=== PATIENT | male | born 1970 | race African-American/Black ===

== ENCOUNTER 2020-05-08 06:54 | Emergency (ER) | payer OTHER, MEDICARE, SELFPAY ==
--- NOTE | 2020-05-08 | XR_ITS ---
EXAMINATION: XR CHEST CLINICAL INFORMATION: Pain COMPARISON: None at this time TECHNIQUE: 2 views of the chest were obtained. FINDINGS: No significant abnormality is noted involving the heart, lungs, mediastinum, bony thorax or soft tissues. IMPRESSION: No acute disease.
[2020-05-08 07:04] VITALS: BP 144/94; PULSE 84; RESP 17; TEMP 37; O2SAT 96; BMI 29.9
--- NOTE | 2020-05-08 07:44 | ED_ITS ---
HPI - Back Pain/Injury General Chief Complaint: Back Pain/Injury Stated Complaint: BACK PAIN Time Seen by Provider: 05/08/20 07:30 Source: patient Mode of arrival: ambulatory Limitations: no limitations History of Present Illness HPI Narrative: patient with low back pain , no associated neuro symptoms, no trauma, no fevers, he is on methotrexate no GI or symptoms, no AC therapy - takes methotrexate elicited complaint: back pain Onset (ago): day(s) (3) Timing: constant Severity: moderate Similar Symptoms Previously: No Quality: sharp Location: lumbar spine Radiation: none Exacerbating factors: movement and deep breaths Relieving factors: none Associated symptoms: denies other symptoms Related Data Previous Rx's Medication Instructions Recorded cyclobenzaprine 10 mg PO TID PRN #14 tab 05/08/20 lidocaine 1 patch TOPICAL DAILY PRN #10 ea 05/08/20 Allergies Allergy/AdvReac Type Severity Reaction Status Date / Time No Known Allergies Allergy Unverified 04/22/20 16:51 [No Known Allergies*] environmental Allergy Unknown Uncoded 12/23/19 00:00 Pt states no known allergy to Allergy Unknown Uncoded 12/31/19 00:00 Review of Systems Review of Systems: Constitutional : No Weight loss, No Fever, No Chills, Cardiovascular : No Chest Pain, No SOB Respiratory : No Cough, No Dyspnea Gastrointestinal : No Nausea, No Vomiting, No Diarrhea, No abdominal Pain Genitourinary : No Dysuria, No Urinary Frequency, No Hematuria, No Urinary Incontinence, Musculoskeletal : positive back pain Skin : No Skin Lesions, No rash Neuro : No Weakness, No Numbness, No Paresthesias, no loss of bowel or bladder incontinence, no saddle anesthesia [facility] Past Medical History Medical History (Updated 05/08/20 @ 08:29 by Julia Fuller DO) Headache HTN (hypertension) Rheumatoid aortitis Social History Social History (Updated 05/08/20 @ 07:44 by Julia Fuller DO) Smoking Status: Former smoker Use of substances other than those prescribed or required for medical reasons: No Advance Directives: No Advance Directives Information Provided: No Physical Exam Vital Signs and I&O and Narrative: Vital Signs and I&O: Vital Signs Temp 98.6 F 05/08/20 07:04 Pulse 79 05/08/20 08:11 Resp 18 05/08/20 08:11 BP 144/94 H 05/08/20 07:04 Pulse Ox 96 05/08/20 07:04 Intake & Output 05/07/20 05/08/20 05/08/20 18:59 06:59 18:59 Weight 102.965 kg Body Mass Index 29.9 Appearance: Alert. Oriented X3. No acute distress. Eyes: Pupils equal, round and reactive to light. ENT: Pharynx normal. Neck: Normal inspection. Neck supple. CVS: Normal heart rate and rhythm. Pulses normal. Respiratory: No respiratory distress. Breath sounds normal. Abdomen: Soft and nontender. Back: ttp along right lower lumbar but mild, worse with a deep breath low just above iliac crest - seems unusual for PE Skin: Skin warm and dry. Normal skin color. Normal skin turgor. Extremities: No lower extremity edema. No lower extremity edema. Neuro: Oriented X 3. No motor deficit. No sensory deficit. Course Reevaluation(s) Reevaluation #1: PERC negative Reevaluation #2: no acute findings, stable for DC MDM - Back Pain/Injury MDM Narrative Medical decision making narrative: low back pain bilaterally worse with movements or deep breath it is lumbar in nature, no AC therapy, no IVDA, no fevers, no vert point ttp, no urinary symptoms, abdomen is benign will need CXR to r/o any pneumonia, no b/b incontinence, no saddle anesthesia, seems MSK in nature, dispo per results and findings Discharge Plan Discharge Clinical Impression: Strain of lumbar region Patient Disposition: Home, Self-Care Prescriptions: New cyclobenzaprine 10 mg tablet 10 mg PO TID PRN (Reason: muscle spasm) Qty: 14 RF: 0 lidocaine 4 % adhesive patch,medicated 1 patch topical DAILY PRN (Reason: pain) Qty: 10 RF: 0 Referrals: Avelino Penny PA-C [Primary Care Provider] - 2 days (if not better call sunday)
[2020-05-08] MEDS: Cyclobenzaprine HCl 10 MG TABLET PO (08:08)
[2020-05-08 08:11] VITALS: PULSE 79; RESP 18
== END 2020-05-08 09:29 | disposition home or self-care (01) ==
PROVIDERS: Emergency Provider Emergency Medicine; PCP Physician Assistant
DX: S39.012A Strain of muscle, fascia and tendon of lower back, initial encounter (principal); X58.XXXA Exposure to other specified factors, initial encounter; I10 Essential (primary) hypertension; Y93.9 Activity, unspecified; Y92.9 Unspecified place or not applicable; Y99.9 Unspecified external cause status
CPT/HCPCS: 71046; 99283; 99284

== ENCOUNTER 2020-06-11 07:52 | Outpatient (REF) | payer OTHER, MEDICARE, SELFPAY ==
--- NOTE | 2020-06-11 09:20 | XR_ITS ---
EXAMINATION: XR HAND, RIGHT XR HAND, LEFT CLINICAL INFORMATION: Acute rheumatic endocarditis. COMPARISON: None TECHNIQUE: 3 views of each hand. FINDINGS: RIGHT HAND: There is an ossifying fibroma or bone island seen involving the 2nd middle phalanx. No acute fracture or dislocation is evident. Joint spaces are maintained. There is mild spurring about the 3rd distal interphalangeal joint. There appears to be an erosion involving the base of the right 5th metacarpal. There appear to be pit erosions involving the 3rd metacarpal head. There appears be some slight deformity about the head of the 3rd proximal phalanx with smooth margins which may be developmental or posttraumatic in nature. LEFT HAND: There is a cortical sclerotic lesion involving the middle phalanx of the 4th finger with the appearance of an ossifying fibroma. No acute fracture or dislocation is seen. Joint spaces are maintained. No definite erosive changes are identified. There is some mild negative ulnar variance present. 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 Pit erosions involving the head of the right 3rd metacarpal. Question erosion base of the right 5th metacarpal.
--- NOTE | 2020-06-11 09:20 | XR_ITS ---
EXAMINATION: XR HAND, RIGHT XR HAND, LEFT CLINICAL INFORMATION: Acute rheumatic endocarditis. COMPARISON: None TECHNIQUE: 3 views of each hand. FINDINGS: RIGHT HAND: There is an ossifying fibroma or bone island seen involving the 2nd middle phalanx. No acute fracture or dislocation is evident. Joint spaces are maintained. There is mild spurring about the 3rd distal interphalangeal joint. There appears to be an erosion involving the base of the right 5th metacarpal. There appear to be pit erosions involving the 3rd metacarpal head. There appears be some slight deformity about the head of the 3rd proximal phalanx with smooth margins which may be developmental or posttraumatic in nature. LEFT HAND: There is a cortical sclerotic lesion involving the middle phalanx of the 4th finger with the appearance of an ossifying fibroma. No acute fracture or dislocation is seen. Joint spaces are maintained. No definite erosive changes are identified. There is some mild negative ulnar variance present. 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 Pit erosions involving the head of the right 3rd metacarpal. Question erosion base of the right 5th metacarpal.
== END 2020-06-11 07:53 | disposition home or self-care (01) ==
LOC: HO.HOSX 07:52
PROVIDERS: PCP Physician Assistant; Referring Provider Physician Assistant; Visit Provider Orthopaedic Surgery
DX: I01.1 Acute rheumatic endocarditis (principal); M06.9 Rheumatoid arthritis, unspecified; Z79.899 Other long term (current) drug therapy; Z98.84 Bariatric surgery status; Z96.649 Presence of unspecified artificial hip joint
CPT/HCPCS: 73130

== ENCOUNTER → 2020-06-22 15:21 | Outpatient (REF) | payer OTHER, MEDICARE, SELFPAY ==
--- NOTE | 2020-06-22 15:33 | ECG_ITS ---
Test Reason : PREPROC EXAM Blood Pressure : / mmHG Vent. Rate : 098 BPM Atrial Rate : 098 BPM P-R Int : 182 ms QRS Dur : 116 ms QT Int : 352 ms P-R-T Axes : 054 018 023 degrees QTc Int : 449 ms Normal sinus rhythm Intra-ventricular conduction delay Borderline ECG When compared with ECG of 15-NOV-2017 08:27, Heart rate has increased Referred By: Dax Doyle Electronically Signed By:STELLA CARCAMO MD
[2020-06-22 16:07] LABS: MANUAL DIFF FLAG NO
[2020-06-22 16:12] LABS: Basophils Percent Auto 0.4 % (0-2); Eosinophils Absolute Auto 0.1 X10*3/uL (0.0-0.4); Hematocrit 39.8 % (42-52); Hemoglobin 12.9 g/dl (14.0-18.0); Imm Gran Abs Auto 0.04 X10*3/uL (0.00-0.03); Imm Gran Pct Auto 0.4 % (0.0-0.4); Lymphocytes Percent Auto 27.5 % (20-40); Mean Corpuscular HGB Conc 32.4 g/dl (31.0-36.0); Mean Corpuscular Hemoglobin 28.3 pg (27.0-33.0); Mean Corpuscular Volume 87.3 fL (80-98); Monocytes Absolute Auto 0.8 X10*3/uL (0.1-1.2); Monocytes Percent Auto 7.6 % (2-11); Neutrophils Percent Auto 63.1 % (45-73); Platelet Count 395 X10*3/uL (160-400); Red Blood Count 4.56 X10*6/uL (4.60-5.80); Red Cell Distribution Width 12.8 % (11.0-16.0)
[2020-06-22 16:36] LABS: Anion Gap 15 (12-20); Blood Urea Nitrogen 15 mg/dL (9-16); Calcium 8.7 mg/dL (8.4-10.2); Carbon Dioxide 30 mmol/L (22-29); Chloride 100 mmol/L (96-108); Estimated Glomerular Filt Rate > 60; Glucose Random 88 mg/dL (60-115); Potassium 4.3 mmol/l (3.3-5.1); Sodium 141 mmol/L (135-145)
== END ==
LOC: HO.CARD 15:21
PROVIDERS: PCP Physician Assistant; Visit Provider Physician Assistant
DX: Z01.812 Encounter for preprocedural laboratory examination (principal); Z01.810 Encounter for preprocedural cardiovascular examination; M06.9 Rheumatoid arthritis, unspecified; I10 Essential (primary) hypertension; Z12.5 Encounter for screening for malignant neoplasm of prostate
CPT/HCPCS: 36415; 80048; 85025; 93005

== ENCOUNTER → 2020-06-28 10:02 | Outpatient (BNVA) | payer OTHER, MEDICARE, SELFPAY | PROVIDERS: PCP Physician Assistant; Referring Provider Physician Assistant; Visit Provider Physician Assistant | DX: Z76.89 Persons encountering health services in other specified circumstances (principal) ==

== ENCOUNTER 2020-07-06 07:47 | Inpatient (IN) | payer MEDICARE, OTHER, SELFPAY ==
[2020-06-23 09:35] LABS: MRSA Nasal PCR NEGATIVE (Negative); SA Nasal PCR NEGATIVE (Negative)
[2020-06-23 12:06] VITALS: BMI 29.9
--- NOTE | 2020-07-05 11:04 | HO.ANESPROP2 ---
HPI - Anesthesia Eval Consult details Narrative: 50yo M for R TKA s/p bilat LYNNE s/p gastric bypass with >300lb weight loss PCP cleared [facility] Past Medical History Medical History Headache HTN (hypertension) Hx of osteoarthritis Hx of varicose veins Rheumatoid arthritis Rheumatoid arthritis involving right knee Sleep apnea Family History Family History Mother No problems noted. Father No problems noted. Surgical History Surgical History History of Juan-en-Y gastric bypass (~04/27/16) History of total left hip arthroplasty History of total right hip arthroplasty (~04/03/17) Social History Social History (Updated 06/28/20 @ 10:04 by Veronica Cramer [facility]) Alcohol intake: never Smoking Status: Former smoker Tobacco Type: Cigarette Years Smoked: 11 Substance Use Type: Marijuana service: No Current occupational status: employed Meds Allergies Allergy/AdvReac Type Severity Reaction Status Date / Time pneumococcal vaccine Allergy Intermediate Swelling Verified 06/28/20 10:02 Home Medications Medication Instructions Recorded Confirmed Type methotrexate sodium 2.5 mg tablet 20 mg PO QWEEK 06/11/20 06/23/20 History amlodipine 10 mg tablet 10 mg PO DAILY 06/22/20 06/23/20 History folic acid 1 mg tablet 3 mg PO DAILY 06/22/20 06/23/20 History iron,carbonyl 65 mg-vitamin C 125 1 tab PO DAILY 06/22/20 06/23/20 History mg tablet,delayed release lansoprazole 30 mg capsule,delayed 30 mg PO DAILY 06/22/20 06/23/20 History release Exam Exam Date and Time: July 05, 2020 1104 Height,Weight and Vital Signs: Height 6 ft 1 in Weight 102.965 kg Pertinent Lab Results Pertinent Lab Results: Laboratory Tests 06/22/20 06/22/20 14:50 15:45 Nasal Screen MRSA (PCR) NEGATIVE Nasal S. aureus Screen NEGATIVE Nasal MRSA/S.aureus Interp SEE NOTE Blood Type A Positive Antibody Screen NEGATIVE Laboratory Tests 06/22/20 06/22/20 15:45 16:00 WBC 11.0 H Hgb 12.9 L Hct 39.8 L Plt Count 395 Sodium 141 Potassium 4.3 Chloride 100 Carbon Dioxide 30 H BUN 15 Creatinine 0.78 Narrative Narrative: EKG 06/2020: Normal sinus rhythm @98, Intra-ventricular conduction delay Assessment and Plan Assessment Anesthesia Assessment: Chart Reviewed
[2020-07-06] VITALS (15 sets, daily range): BP systolic 131–157; BP diastolic 68–103; PULSE 75–108; RESP 13–20; TEMP 36.2–37.6; O2SAT 92–100
--- NOTE | 2020-07-06 08:12 | PC.NURSE ---
recalled lab for a blood band
[2020-07-06 08:26] LABS: COVID-19 Test Negative (Negative); IDNOW Serial# 9DD0AD1C
[2020-07-06] MEDS: Lactated Ringers 1,000 ML 100 ML IVCONT (08:26)
[2020-07-06] MEDS: Gabapentin 600 MG TABLET PO (08:30)
[2020-07-06] MEDS: ceFAZolin Sodium/Dextrose,Iso 2 GM/50 ML PIGGYBACK IV ×2 (08:30→16:52)
--- NOTE | 2020-07-06 09:45 | HO.ANESPROP2 ---
[facility] Past Medical History Medical History Headache HTN (hypertension) Hx of osteoarthritis Hx of varicose veins Rheumatoid arthritis Rheumatoid arthritis involving right knee Sleep apnea Family History Family History Mother No problems noted. Father No problems noted. Surgical History Surgical History History of Juan-en-Y gastric bypass (~04/27/16) History of total left hip arthroplasty History of total right hip arthroplasty (~04/03/17) Social History Social History (Updated 06/28/20 @ 10:04 by Veronica Cramer [facility]) Are you a primary primary care md to a significant other at home: No Do you presently have visiting nurse or other home services: No Alcohol intake: never Smoking Status: Former smoker Tobacco Type: Cigarette Years Smoked: 11 Smoked in Last 30 Days: No Smoking Quit Date: 1999 Use of substances other than those prescribed or required for medical reasons: Yes Substance Use Type: Marijuana Substance Use Type Other:: medical marijuana Substance Use Frequency: Daily Have you been hit, kicked, punched, or otherwise hurt by someone within the past year? If so, by whom?: No [facility] Practices: [facility] Advance Directives Information Provided: No Recently lost weight without trying: No Meds Allergies Allergy/AdvReac Type Severity Reaction Status Date / Time pneumococcal vaccine Allergy Intermediate Swelling Verified 06/28/20 10:02 Home Medications Medication Instructions Recorded Confirmed Type methotrexate sodium 2.5 mg tablet 20 mg PO QWEEK 06/11/20 06/23/20 History amlodipine 10 mg tablet 10 mg PO DAILY 06/22/20 06/23/20 History folic acid 1 mg tablet 3 mg PO DAILY 06/22/20 06/23/20 History iron,carbonyl 65 mg-vitamin C 125 1 tab PO DAILY 06/22/20 06/23/20 History mg tablet,delayed release lansoprazole 30 mg capsule,delayed 30 mg PO DAILY 06/22/20 06/23/20 History release Exam Exam Date and Time: July 06, 2020 0945 Height,Weight and Vital Signs: Height 6 ft 1 in Weight 102.965 kg Last Vital Signs Temp 97.9 F 07/06/20 08:12 Pulse 86 07/06/20 08:12 Resp 16 07/06/20 08:12 BP 131/82 07/06/20 08:12 Pulse Ox 98 07/06/20 08:12 Pertinent Lab Results Pertinent Lab Results: Laboratory Tests 06/22/20 06/22/20 07/06/20 14:50 15:45 07:32 Nasal Screen MRSA (PCR) NEGATIVE Nasal S. aureus Screen NEGATIVE Nasal MRSA/S.aureus Interp SEE NOTE COVID-19 ([facility]) Negative COVID-19 Clin Com See Note Blood Type A Positive Antibody Screen NEGATIVE Airway Mallampati Class: I TM Dist: >3cm Neck ROM: Full Loose/Missing/Broken Teeth: No Heart: RRR Lungs: CTA Assessment and Plan Assessment Anesthesia Assessment: Anesthesia Plan Discussed and Chart Reviewed Final Anesthetic Review NPO: Yes ASA Class: II Final Preanesthetic Review: No Changes in Pt Med Stat, Meds/Allgs Chart Reviewed, Consent Obtained/Reviewed and Anes Risks/Benef Reviewed Patient Risk: Low Procedure Risk: Intermediate Anesthetic Plan Anesthetic Plan: GA Disposition: Standard PACU
--- NOTE | 2020-07-06 10:26 | PC.NURSE ---
nerve block being performed. consents already signed prior to procedure.
--- NOTE | 2020-07-06 10:36 | MHC.SHP ---
Pre-Procedural Eval Section A The patient is an INPATIENT: No Changes since office visit: Yes Patient answered all questions; No Cold of Flu in the past 2 weeks, No New Medical Problems and No Changes in Medication The History & Physical has been completed within 30 days and I have reviewed it.: Yes Section B Chief Complaint: RIGHT TOTAL KNEE ARTHROPLASTY Allergies: Allergies Allergy/AdvReac Type Severity Reaction Status Date / Time pneumococcal vaccine Allergy Intermediate Swelling Verified 06/28/20 10:02 Plan Patient has been examined and remains a candidate for the planned procedure
--- NOTE | 2020-07-06 13:06 | PM.OP ---
Brief Operative Note Date of Service: 07/06/20 Pre-op diagnosis: right knee RA Post-op diagnosis: same Procedure: Right TKA Implants: deangelo triathlon press fit 01/08/10cr/39s Surgeon: Brad Rivera MD Anesthesia: MAC, regional and spinal Transformer Assembly Supervisor: Dax Doyle Estimated blood loss (mL): 50 Tourniquet time (min): 58 IV fluids (mL): 1,000 Pathology: other (bone right knee) Condition: stable Disposition: PACU
[2020-07-06] MEDS: HYDROmorphone HCl 0.5 MG/0.5 ML SYRINGE 0.25 MG IVPUSH ×3 (13:46→23:36)
[2020-07-06] MEDS: Dextrose 5 % and 0.45 % NaCl 1,000 ML 80 ML IVCONT (16:43)
[2020-07-06] MEDS: oxyCODONE HCl Immed Release 5 MG TABLET 10 MG PO (16:44)
[2020-07-06] MEDS: 0.9 % Sodium Chloride Flush 3 ML SYRINGE IVFLUSH (16:44)
--- NOTE | 2020-07-06 17:48 | PM.IMCN ---
History of Present Illness Data of Consult Service Date: 07/06/20 <Joya Alvarado NP - Last Filed: 07/06/20 17:52> Requesting physician: Brad Rivera <Joya Alvarado NP - Last Filed: 07/06/20 17:52> Primary Care Provider: Avelino Penny PA-C <Joya Alvarado NP - Last Filed: 07/06/20 17:52> HPI Reason for consult: Medical management <Joya Alvarado NP - Last Filed: 07/06/20 17:52> 50-year-old man status post right knee arthroplasty. Surgery was unremarkable. Patient denied any nausea or vomiting. He has been able to eat without any issue. His blood pressures have a mildly elevated likely related to pain other than that his other vital signs are within acceptable. He has no acute medical complaints at this time. <Joya Alvarado NP - Last Filed: 07/06/20 17:52> Review of Systems Review of Systems: Denies any recent fever chills or decrease in appetite respiratory denies any shortness of breath coverage production cardiovascular is adjustment of any PND or edema gastrointestinal denies any dysphagia abdominal pain nausea vomiting or diarrhea genitourinary denies any dysuria frequency or hematuria musculoskeletal Right knee pain neuropsych denies any weakness or seizures all other systems reviewed are negative <Joya Alvarado NP - Last Filed: 07/06/20 17:52> [facility] Medical History: Medical History Headache HTN (hypertension) Hx of osteoarthritis Hx of varicose veins Rheumatoid arthritis Rheumatoid arthritis involving right knee Sleep apnea <Joya Alvarado NP - Last Filed: 07/06/20 17:52> Family History: Family History Mother No problems noted. Father No problems noted. <Joya Alvarado NP - Last Filed: 07/06/20 17:52> Surgical History: Surgical History History of Juan-en-Y gastric bypass (~04/27/16) History of total left hip arthroplasty History of total right hip arthroplasty (~04/03/17) <Joya Alvarado NP - Last Filed: 07/06/20 17:52> Social History: Social History (Updated 06/28/20 @ 10:04 by Veronica Cramer [employer]) Alcohol intake: never Smoking Status: Former smoker Tobacco Type: Cigarette Years Smoked: 11 Substance Use Type: Marijuana service: No Current occupational status: employed <Joya Alvarado NP - Last Filed: 07/06/20 17:52> Meds Allergies/Adverse reactions: Allergies Allergy/AdvReac Type Severity Reaction Status Date / Time pneumococcal vaccine Allergy Intermediate Swelling Verified 06/28/20 10:02 <Joya Alvarado NP - Last Filed: 07/06/20 17:52> Home medications: Home Medications Medication Instructions Recorded Confirmed Type methotrexate sodium 2.5 mg tablet 20 mg PO QWEEK 06/11/20 06/23/20 History amlodipine 10 mg tablet 10 mg PO DAILY 06/22/20 06/23/20 History folic acid 1 mg tablet 3 mg PO DAILY 06/22/20 06/23/20 History iron,carbonyl 65 mg-vitamin C 125 1 tab PO DAILY 06/22/20 06/23/20 History mg tablet,delayed release lansoprazole 30 mg capsule,delayed 30 mg PO DAILY 06/22/20 06/23/20 History release <Joya Alvarado NP - Last Filed: 07/06/20 17:52> Physical Exam Vital Signs and Narrative: Vital Signs: Last Vital Signs Temp 98.6 F 07/06/20 15:38 Pulse 108 H 07/06/20 15:38 Resp 18 07/06/20 15:38 BP 156/103 H 07/06/20 15:38 Pulse Ox 97 07/06/20 15:38 Body Mass Index 29.9 <Joya Alvarado NP - Last Filed: 07/06/20 17:52> Appearing in no acute distress head is normocephalic atraumatic eyes pupils are PERRLA sclera is anicteric mouth throat mucous membranes are intact and moist neck is supple no lymphadenopathy, no JVD noted lung sounds are clear to auscultation heart regular rate rhythm, clear S1, S2 positive bowel sounds, abdomen is soft, nontender neuro patient is alert x3, no focal deficits MSK right knee dressing clean dry and intact. <Joya Alvarado NP - Last Filed: 07/06/20 17:52> Results Labs CBC and Chem 7: : 07/08/20 06:06 07/08/20 06:06 <Joya lAvarado NP - Last Filed: 07/06/20 17:52> Labs: Laboratory Results - last 24 hr 07/06/20 07:32 COVID-19 ([facility]) Negative COVID-19 Clin Com See Note <Joya Alvarado NP - Last Filed: 07/06/20 17:52> Assessment and Plan (1) History of arthroplasty of right knee: Problem details: Mr. Rodríguez presented to our office with ongoing right knee pain. He was found have osteoarthritis of the right knee and after failing all conservative measures he agreed to move forward with right total knee arthroplasty. <Joya Alvarado NP - Last Filed: 07/06/20 17:52> Status: Deleted <Joya Alvarado NP - Last Filed: 07/06/20 17:52> 50-year-old man status post right total knee arthroplasty. Right total knee arthroplasty. Management as per surgical team. Pain management. Hypertension. Stable blood pressure actually somewhat elevated. Continue home medications. History of rheumatoid arthritis. Hold methotrexate for now. GERD. Continue PPI. DVT as per surgical team. Case discussed with Dr. Stallworth Full code <Joya Alvarado NP - Last Filed: 07/06/20 17:52>
[2020-07-06] MEDS: oxyCODONE HCl ER 10 MG TAB.ER.12H PO (20:11)
[2020-07-06] MEDS: Celecoxib 200 MG CAPSULE PO (20:11)
[2020-07-06] MEDS: Acetaminophen 325 MG TABLET 650 MG PO (20:11)
--- NOTE | 2020-07-06 22:00 | XR_ITS ---
EXAMINATION: XR KNEE, RIGHT CLINICAL INFORMATION: Status post right total knee arthroplasty, follow-up. COMPARISON: 01/13/2020. TECHNIQUE: Four views of the right knee. FINDINGS: The patient is status post right knee arthroplasty showing good anatomic alignment with no evidence for hardware malfunction. There is a moderate-sized joint effusion with intra-articular air. Subcutaneous air is also seen. Multiple anterior surgical skin shannan are noted. XR/XR knee RT 2V IMPRESSION: Postsurgical changes without hardware abnormality.
[2020-07-07] VITALS (7 sets, daily range): BP systolic 141–163; BP diastolic 81–94; PULSE 91–105; RESP 18–20; TEMP 36.4–37.1; O2SAT 97–98
[2020-07-07] MEDS: Dextrose 5 % and 0.45 % NaCl 1,000 ML 80 ML IVCONT ×2 (03:42→15:37)
[2020-07-07] MEDS: HYDROmorphone HCl 0.5 MG/0.5 ML SYRINGE 0.25 MG IVPUSH (03:45)
[2020-07-07 06:42] LABS: MANUAL DIFF FLAG NO
[2020-07-07 06:52] LABS: Basophils Percent Auto 0.1 % (0-2); Eosinophils Percent Auto 0.1 % (0-4); Hemoglobin 11.3 g/dl (14.0-18.0); Imm Gran Abs Auto 0.07 X10*3/uL (0.00-0.03); Imm Gran Pct Auto 0.6 % (0.0-0.4); Lymphocytes Absolute Auto 1.7 X10*3/uL (1.2-4.9); Lymphocytes Percent Auto 13.4 % (20-40); Mean Corpuscular HGB Conc 33.2 g/dl (31.0-36.0); Mean Corpuscular Hemoglobin 28.5 pg (27.0-33.0); Mean Corpuscular Volume 85.6 fL (80-98); Mean Platelet Volume 9.4 fL (9.4-12.4); Monocytes Absolute Auto 1.1 X10*3/uL (0.1-1.2); Monocytes Percent Auto 9.1 % (2-11); Neutrophils Absolute Auto 9.7 X10*3/uL (2.0-8.3); Neutrophils Percent Auto 76.7 % (45-73); Platelet Count 265 X10*3/uL (160-400); Red Blood Count 3.97 X10*6/uL (4.60-5.80); Red Cell Distribution Width 12.4 % (11.0-16.0); White Blood Count 12.6 X10*3/uL (4.8-10.8)
[2020-07-07 07:17] LABS: Anion Gap 12 (12-20); Blood Urea Nitrogen 8 mg/dL (9-16); Calcium 8.1 mg/dL (8.4-10.2); Carbon Dioxide 29 mmol/L (22-29); Chloride 100 mmol/L (96-108); Creatinine Clr Calc Pharmacy 163.2; Estimated Glomerular Filt Rate > 60; Glucose Fasting 125 mg/dL (60-99); Potassium 4.4 mmol/l (3.3-5.1); Sodium 137 mmol/L (135-145)
[2020-07-07] MEDS: oxyCODONE HCl Immed Release 5 MG TABLET 10 MG PO ×3 (07:46→17:08)
[2020-07-07] MEDS: Acetaminophen 325 MG TABLET 650 MG PO ×2 (07:46→15:36)
[2020-07-07] MEDS: Furosemide 20 MG TABLET PO ×2 (07:46→17:07)
--- NOTE | 2020-07-07 09:16 | HO.POSTANES ---
Post Anesthesia Evaluation Post Anesthesia Evaluation Vital Signs: Vital Signs Temp Pulse Resp BP Pulse Ox 07/07/20 07:30 97.6 F 91 18 163/94 H 97 07/07/20 03:50 98.7 F 101 H 20 153/83 H 07/06/20 23:32 98.2 F 98 20 157/83 H 98 Anesthesia: Nerve Block and General Mental Status: Awake Pain Control: Satisfactory Nausea/Vomiting: None Hydration: Adequate Anesthesia-Related Issues: No Anes. Related Issues
[2020-07-07] MEDS: Omeprazole 20 MG CAPSULE.DR PO (09:55)
[2020-07-07] MEDS: Folic Acid 1 MG TABLET 3 MG PO (09:55)
[2020-07-07] MEDS: lisinopriL 40 MG TABLET PO (09:56)
[2020-07-07] MEDS: amLODIPine Besylate 10 MG TABLET PO (09:56)
[2020-07-07] MEDS: oxyCODONE HCl ER 10 MG TAB.ER.12H PO ×2 (09:56→20:50)
[2020-07-07] MEDS: Celecoxib 200 MG CAPSULE PO ×2 (09:56→20:49)
--- NOTE | 2020-07-07 12:00 | MHC.CM.PN ---
PATIENT LIVES WITH AND IS FULLY INDEPENDENT HE DOES HAVE A WALKER, WALKING STICK, CRUTCHES, TOILET RISER, AND SHOWER CHAIR IN PREP FOR THIS PROCEDURE. 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 [facility] REFERRAL PLACED. ROZ 07/07 IN CHART
[2020-07-07] MEDS: Enoxaparin Sodium 40 MG/0.4 ML SYRINGE SUBCUT (12:22)
--- NOTE | 2020-07-07 15:05 | P.PNOP_ITS ---
Subjective Subjective Date of Service: 07/07/20 Interval history: Postop day 1 status post right total knee arthroplasty. Overnight he has some increased pain which is controlled with Dilaudid. He has been working with physical therapy and doing well. No concerns. Physical Exam Vital Signs: Vital Signs: Last Vital Signs Temp 98.0 F 07/07/20 11:47 Pulse 105 H 07/07/20 11:47 Resp 19 07/07/20 11:47 BP 141/87 H 07/07/20 11:47 Pulse Ox 98 07/07/20 11:47 Body Mass Index 29.9 Const: General: cooperative, healthy appearing and no acute distress Resp: Effort & Inspection: normal respiratory effort and able to speak in complete sentences Cardio: Rate: regular rate Peripheral pulses: Peripheral pulses 2+ throughout GI: Inspection: Yes normal to inspection Palpation (GI): Soft to palpation Skin: General skin exam: no rashes or lesions noted Extrem: Other: Right knee skin is intact no drainage. Mild erythema. Calf supple nontender. Progress Note: A&P Assessment and plan (1) Status post total right knee replacement not using cement: Status: Acute Assessment and Plan: Continue pain mgmnt Begin lovenox for dvt ppx begin PT for RT TKA Dispo planning-Pending PT eval, pain mgmnt Fall Risk Details Current Medications: Current Medications Generic Name Dose Route Start Last Admin Trade Name Freq PRN Reason Stop Dose Admin Acetaminophen 650 mg 07/06/20 15:32 07/07/20 07:46 Acetaminophen 325 Mg Tablet PO 650 mg Q6H PRN Administration Pain, Mild (Pain Scale 1-3) Amlodipine Besylate 10 mg 07/07/20 09:00 07/07/20 09:56 Amlodipine Besylate 10 Mg Tablet PO 10 mg DAILY JULIO CESAR Administration Protocol Celecoxib 200 mg 07/06/20 21:00 07/07/20 09:56 Celecoxib 200 Mg Capsule PO 200 mg BID JULIO CESAR Administration Enoxaparin Sodium 40 mg 07/07/20 13:00 07/07/20 12:22 Enoxaparin Sodium 40 Mg/0.4 Ml Syringe SUBCUT 40 mg Q24H JULIO CESAR Administration Folic Acid 3 mg 07/07/20 09:00 07/07/20 09:55 Folic Acid 1 Mg Tablet PO 3 mg DAILY JULIO CESAR Administration Furosemide 20 mg 07/07/20 08:00 07/07/20 07:46 Furosemide 20 Mg Tablet PO 20 mg BIDWM JULIO CESAR Administration Protocol Hydromorphone HCl 0.5 mg 07/07/20 08:00 Hydromorphone Hcl 0.5 Mg/0.5 Ml Syringe IVPUSH Q3H PRN Pain, Severe (Pain Scale 7-10) Dextrose/Sodium Chloride 1,000 mls @ 80 mls/hr 07/06/20 16:00 07/07/20 03:42 D51/2ns IVCONT 80 mls/hr .[id number] JULIO CESAR Administration Lisinopril 40 mg 07/07/20 09:00 07/07/20 09:56 Lisinopril 40 Mg Tablet PO 40 mg DAILY JULIO CESAR Administration Protocol Naloxone HCl 0.2 mg 07/06/20 15:32 Naloxone Hcl 0.4 Mg/Ml Vial IVPUSH Q2M PRN Excessive sedation or RR < 8 Non-Formulary Medication 1 tab 07/07/20 09:00 Iron,Carbonyl-Vitamin C PO DAILY [facility] Omeprazole 20 mg 07/07/20 09:00 07/07/20 09:55 Omeprazole 20 Mg Capsule.Dr PO 20 mg DAILY JULIO CESAR Administration Ondansetron HCl 4 mg 07/06/20 15:32 Ondansetron Hcl 4 Mg/2 Ml Vial IVPUSH Q8H PRN Nausea Oxycodone HCl 10 mg 07/06/20 15:32 07/07/20 12:31 Oxycodone Hcl Immed Release 5 Mg Tablet PO 10 mg Q4H PRN Administration Pain, Moderate (Pain Scale 4-6 Oxycodone HCl 10 mg 07/06/20 21:00 07/07/20 09:56 Oxycodone Hcl Er 10 Mg Tab.Er.12h PO 10 mg BID JULIO CESAR Administration Senna 17.2 mg 07/06/20 15:32 Sennosides 8.6 Mg Tablet PO BEDTIME PRN Constipation Sodium Chloride 3 ml 07/06/20 16:00 07/07/20 15:05 0.9 % Sodium Chloride Flush 3 Ml Syringe IVFLUSH Not Given QSHIFT [facility] Time Spent With Patient Time: Total time spent is greater than 50% in coordination of care (as documented) at patient's floor/unit and/or counseling patient: Time with patient: 15 - 24 minutes
--- NOTE | 2020-07-07 15:14 | P.PNIM_ITS ---
Subjective Subjective Date of Service: 07/07/20 Interval History: patient seen and examined at bedside patient reported some knee pain Review of Systems Denies any recent fever chills or decrease in appetite respiratory denies any shortness of breath coverage production cardiovascular is adjustment of any PND or edema gastrointestinal denies any dysphagia abdominal pain nausea vomiting or diarrhea genitourinary denies any dysuria frequency or hematuria musculoskeletal Right knee pain neuropsych denies any weakness or seizures all other systems reviewed are negative Physical Exam Vital Signs: Vital Signs: Last Vital Signs Temp 98.0 F 07/07/20 11:47 Pulse 105 H 07/07/20 11:47 Resp 19 07/07/20 11:47 BP 141/87 H 07/07/20 11:47 Pulse Ox 98 07/07/20 11:47 Body Mass Index 29.9 Const: General: cooperative, healthy appearing and no acute distress Limitations: No language barrier Resp: Effort & Inspection: normal respiratory effort and able to speak in complete sentences Cardio: Rate: regular rate Peripheral pulses: Peripheral pulses 2+ throughout GI: Inspection: Yes normal to inspection Palpation (GI): Soft to palpation Skin: General skin exam: no rashes or lesions noted Extrem: Other: Right knee skin is intact no drainage. Mild erythema. Calf supple nontender. Objective Data Current Medications Generic Name Dose Route Start Last Admin Trade Name Freq PRN Reason Stop Dose Admin Acetaminophen 650 mg 07/06/20 15:32 07/07/20 07:46 Acetaminophen 325 Mg Tablet PO 650 mg Q6H PRN Administration Pain, Mild (Pain Scale 1-3) Amlodipine Besylate 10 mg 07/07/20 09:00 07/07/20 09:56 Amlodipine Besylate 10 Mg Tablet PO 10 mg DAILY JULIO CESAR Administration Protocol Celecoxib 200 mg 07/06/20 21:00 07/07/20 09:56 Celecoxib 200 Mg Capsule PO 200 mg BID JULIO CESAR Administration Enoxaparin Sodium 40 mg 07/07/20 13:00 07/07/20 12:22 Enoxaparin Sodium 40 Mg/0.4 Ml Syringe SUBCUT 40 mg Q24H JULIO CESAR Administration Folic Acid 3 mg 07/07/20 09:00 07/07/20 09:55 Folic Acid 1 Mg Tablet PO 3 mg DAILY JULIO CESAR Administration Furosemide 20 mg 07/07/20 08:00 07/07/20 07:46 Furosemide 20 Mg Tablet PO 20 mg BIDWM JULIO CESAR Administration Protocol Hydromorphone HCl 0.5 mg 07/07/20 08:00 Hydromorphone Hcl 0.5 Mg/0.5 Ml Syringe IVPUSH Q3H PRN Pain, Severe (Pain Scale 7-10) Dextrose/Sodium Chloride 1,000 mls @ 80 mls/hr 07/06/20 16:00 07/07/20 03:42 D51/2ns IVCONT 80 mls/hr .[id number] JULIO CESAR Administration Lisinopril 40 mg 07/07/20 09:00 07/07/20 09:56 Lisinopril 40 Mg Tablet PO 40 mg DAILY [facility] Administration Protocol Naloxone HCl 0.2 mg 07/06/20 15:32 Naloxone Hcl 0.4 Mg/Ml Vial IVPUSH Q2M PRN Excessive sedation or RR < 8 Non-Formulary Medication 1 tab 07/07/20 09:00 Iron,Carbonyl-Vitamin C PO DAILY [facility] Omeprazole 20 mg 07/07/20 09:00 07/07/20 09:55 Omeprazole 20 Mg Capsule.Dr PO 20 mg DAILY [facility] Administration Ondansetron HCl 4 mg 07/06/20 15:32 Ondansetron Hcl 4 Mg/2 Ml Vial IVPUSH Q8H PRN Nausea Oxycodone HCl 10 mg 07/06/20 15:32 07/07/20 12:31 Oxycodone Hcl Immed Release 5 Mg Tablet PO 10 mg Q4H PRN Administration Pain, Moderate (Pain Scale 4-6 Oxycodone HCl 10 mg 07/06/20 21:00 07/07/20 09:56 Oxycodone Hcl Er 10 Mg Tab.Er.12h PO 10 mg BID [facility] Administration Senna 17.2 mg 07/06/20 15:32 Sennosides 8.6 Mg Tablet PO BEDTIME PRN Constipation Sodium Chloride 3 ml 07/06/20 16:00 07/07/20 15:05 0.9 % Sodium Chloride Flush 3 Ml Syringe IVFLUSH Not Given QSHIFT [facility] Labs CBC & Chem 7: 07/07/20 06:26 07/07/20 06:26 Assessment and Plan (1) History of arthroplasty of right knee: Status: Acute Assessment and Plan: 50-year-old man status post right total knee arthroplasty. Right total knee arthroplasty. Management as per surgical team. Pain management. Hypertension. Stable blood pressure actually somewhat elevated. Continue amlodipine and lisinopril History of rheumatoid arthritis. on methotrexate for now follow-up rheumatology as outpatient GERD. Continue PPI. DVT Lovenox
[2020-07-07] MEDS: HYDROmorphone HCl 0.5 MG/0.5 ML SYRINGE IVPUSH (20:50)
[2020-07-08] MEDS: ondansetron HCL 4 MG/2 ML VIAL IVPUSH (00:02)
[2020-07-08] MEDS: oxyCODONE HCl Immed Release 5 MG TABLET 10 MG PO ×2 (03:22→07:51)
[2020-07-08 03:34] VITALS: BP 123/79; PULSE 91; RESP 20; TEMP 36.6; O2SAT 98
[2020-07-08] MEDS: Dextrose 5 % and 0.45 % NaCl 1,000 ML 80 ML IVCONT (04:13)
[2020-07-08 06:23] LABS: MANUAL DIFF FLAG NO
[2020-07-08 06:29] LABS: Basophils Percent Auto 0.3 % (0-2); Eosinophils Absolute Auto 0.2 X10*3/uL (0.0-0.4); Eosinophils Percent Auto 1.5 % (0-4); Hematocrit 32.8 % (42-52); Hemoglobin 10.6 g/dl (14.0-18.0); Imm Gran Abs Auto 0.07 X10*3/uL (0.00-0.03); Imm Gran Pct Auto 0.6 % (0.0-0.4); Lymphocytes Percent Auto 16.9 % (20-40); Mean Corpuscular HGB Conc 32.3 g/dl (31.0-36.0); Mean Corpuscular Hemoglobin 27.7 pg (27.0-33.0); Mean Corpuscular Volume 85.9 fL (80-98); Mean Platelet Volume 9.3 fL (9.4-12.4); Monocytes Absolute Auto 0.9 X10*3/uL (0.1-1.2); Monocytes Percent Auto 7.9 % (2-11); Neutrophils Absolute Auto 8.5 X10*3/uL (2.0-8.3); Neutrophils Percent Auto 72.8 % (45-73); Platelet Count 245 X10*3/uL (160-400); Red Blood Count 3.82 X10*6/uL (4.60-5.80); Red Cell Distribution Width 12.5 % (11.0-16.0); White Blood Count 11.7 X10*3/uL (4.8-10.8)
[2020-07-08 06:50] LABS: Anion Gap 10 (12-20); Blood Urea Nitrogen 6 mg/dL (9-16); Calcium 8.2 mg/dL (8.4-10.2); Carbon Dioxide 32 mmol/L (22-29); Chloride 102 mmol/L (96-108); Creatinine Clr Calc Pharmacy 168.1; Estimated Glomerular Filt Rate > 60; Glucose Fasting 114 mg/dL (60-99); Potassium 4.3 mmol/l (3.3-5.1); Sodium 140 mmol/L (135-145)
[2020-07-08 07:28] VITALS: BP 146/71; PULSE 85; RESP 19; TEMP 36.6; O2SAT 100
[2020-07-08] MEDS: Acetaminophen 325 MG TABLET 650 MG PO (07:51)
[2020-07-08 08:55] VITALS: BP 146/71; PULSE 85
[2020-07-08] MEDS: Celecoxib 200 MG CAPSULE PO (08:55)
[2020-07-08] MEDS: Omeprazole 20 MG CAPSULE.DR PO (08:55)
[2020-07-08] MEDS: amLODIPine Besylate 10 MG TABLET PO (08:55)
[2020-07-08] MEDS: lisinopriL 40 MG TABLET PO (08:55)
[2020-07-08] MEDS: Furosemide 20 MG TABLET PO (08:55)
[2020-07-08] MEDS: Folic Acid 1 MG TABLET 3 MG PO (08:55)
[2020-07-08] MEDS: oxyCODONE HCl ER 10 MG TAB.ER.12H PO (08:56)
--- NOTE | 2020-07-08 09:24 | MHC.CM.PN ---
Pt to be d/c today. [facility] has accepted pt. Pt has walker, cane and shower chair at home. Has given himself lovenox injections at home after gastric bypass surgery and bilateral hip replacements. Feels comfortable with that skill. PCP is Avelino Penny. Transportation home is by .
--- NOTE | 2020-07-09 16:37 | OP_ITS ---
SURGEON: Brad Rivera MD INDICATIONS: This is a 50-year-old gentleman with rheumatoid arthritis and ongoing recurrent pain and effusions in his right knee. He was consented to undergo right knee arthroplasty. PREOPERATIVE DIAGNOSIS: Right knee osteoarthritis. POSTOPERATIVE DIAGNOSIS: Right knee osteoarthritis. PROCEDURE PERFORMED: Right total knee arthroplasty. ESTIMATED BLOOD LOSS: 50 mL. COMPLICATIONS: ANESTHESIA: ASSISTANTS: JAKOB Sanchez. SPECIMENS: IMPLANTS USED: [employer] press-fit, 01/08/CR/39S. TOURNIQUET TIME: 58 minutes. FLUIDS: 1 L. PROCEDURE IN DETAIL: The patient was brought to the operating room, placed supine on the operative table and prepped and draped in standard sterile fashion. Time-out was called to identify proper site, proper procedure, proper surgeon. IV antibiotics per weight was administered. I began by exsanguinating the limb and insufflating tourniquet to 300 mmHg. I then made a standard midline incision down to the retinaculum and performed a medial parapatellar arthrotomy. He had a very soft medial femoral condyle with destruction of the bone and florid synovitis. I resected the fat pad and performed a small medial peel. Mark's line was used and I drilled my intramedullary femoral guide, made my distal femoral cut in 5 degrees of valgus. I then sized a size 6 femur, made my anterior, posterior and chamfer cuts. Care was taken not to notch, but there was small notching that occurred at the anterior cortex. This was not through the entirety of the cortex. I turned my attention to the tibia. I then made a tibial cut and perpendicular to the floor, taking 9 mm off the medial side in line with the tibial crest. I then sized a size 5 tibia and took the knee through range of motion with my provisional components in place. I was happy with the range of the stability. The undersurface of the patella was then resurfaced, and a patellar trial was placed and I was happy with the tracking. Lug holes in the tibial canal were drilled, and all instrumentation was removed. I then irrigated copiously and press-fit the tibia and femur in place and patella using standard technique. I then trialed a 9, 10, 11 insert and I was happiest with a 10 insert. This was placed. Tourniquet was let down. There was no brisk bleeding. Closure was performed with subcuticular absorbable suture and shannan on the skin. The patient was placed in sterile dressing, extubated, and brought to the recovery room in stable condition. There were no known complications. MD JAMEE Clay/NILESH / [id number]
--- NOTE | 2020-07-14 15:15 | PM.DS ---
DS: Providers Provider Date of admission: 07/06/20 07:47 Primary care physician: Avelino Penny PA-C Consults: 07/06/20 15:32 Consult to Hospitalist Routine Consulting Provider: Hospitalist Reason for consultation: medical managment DS: Diagnosis Discharge Diagnosis (1) History of arthroplasty of right knee: Status: Acute Problem details: Mr. Rodríguez presented to our office with ongoing right knee pain. He was found have osteoarthritis of the right knee and after failing all conservative measures he agreed to move forward with right total knee arthroplasty. DS: Medications Discharge Medications Home Medications: Home Medications Medication Instructions Recorded Confirmed methotrexate sodium 2.5 mg tablet 20 mg PO QWEEK 06/11/20 06/23/20 amlodipine 10 mg tablet 10 mg PO DAILY 06/22/20 06/23/20 folic acid 1 mg tablet 3 mg PO DAILY 06/22/20 06/23/20 iron,carbonyl 65 mg-vitamin C 125 1 tab PO DAILY 06/22/20 06/23/20 mg tablet,delayed release lansoprazole 30 mg capsule,delayed 30 mg PO DAILY 06/22/20 06/23/20 release Previous Rx's Medication Instructions Recorded cyclobenzaprine 10 mg PO TID PRN #14 tab 05/08/20 lidocaine 1 patch TOPICAL DAILY PRN #10 ea 05/08/20 lisinopril 40 mg tablet 40 mg PO DAILY 90 Days #90 tab 05/10/20 furosemide 20 mg tablet 20 mg PO BID 90 Days #180 tab 05/17/20 acetaminophen 300 mg-codeine 30 mg 1 tab PO BID PRN 10 Days #20 tab 06/22/20 tablet Crutches #1 ea 06/23/20 acetaminophen 650 mg PO Q6H PRN 30 Days #240 tab 07/08/20 folic acid 3 mg PO DAILY 30 Days #90 tab 07/08/20 oxycodone 10 mg PO Q4H PRN 7 Days #42 tab 07/08/20 sennosides [Senna Lax] 17.2 mg PO BEDTIME PRN 30 Days #60 07/08/20 tab enoxaparin 40 mg/0.4 mL 40 mg SUBCUT Q24H 14 Days #5.6 ml 07/09/20 subcutaneous syringe ondansetron HCl 4 mg tablet 4 mg PO Q4H 14 Days #84 tab 07/09/20 rivaroxaban 10 mg tablet 10 mg PO DAILY 14 Days #14 tab 07/09/20 promethazine 25 mg tablet 25 mg PO Q4-6H PRN 7 Days #30 tab 07/12/20 DS: Summary Hospital Course Hospital Course: Mr. Rodríguez underwent a successful right total knee arthroplasty was transferred to PACU and then to the floor where he recovered during his stay his vitals were stable afebrile at 97.9 and his labs were unremarkable hemoglobin 10.6 hematocrit 32.8. Postop day 1 he was started on Lovenox 40 mg subcu for DVT prophylaxis and he also received physical therapy services twice a day. Prior to discharge his Aquacel dressing was changed incision clean dry and intact oxygen applied and the plan is to be discharged home with VNA services. Time Spent with Patient Time attestation: Total time spent providing and/or coordinating discharge services: Quality: VTE VTE Discharge Instructions: Medication prescription education, guidance and counseling Physical Exam Vital Signs: Vital Signs: Last Vital Signs Temp 97.9 F 07/08/20 07:28 Pulse 85 07/08/20 08:55 Resp 19 07/08/20 07:28 BP 146/71 H 07/08/20 08:55 Pulse Ox 100 07/08/20 07:28 Body Mass Index 29.9 Const: General: cooperative, healthy appearing and no acute distress Resp: Effort & Inspection: normal respiratory effort and able to speak in complete sentences Cardio: Rate: regular rate Peripheral pulses: Peripheral pulses 2+ throughout GI: Inspection: Yes normal to inspection Palpation (GI): Soft to palpation Skin: General skin exam: no rashes or lesions noted Extrem: Other: Right knee incision clean dry and intact. No erythema or drainage. Range of motion 0-90. Calf supple nontender. DS: Data Data Completed and Pending Completed studies during hospitalization [Text1]: Pending at discharge 07/06/20 12:50 Surgical [PTH] Routine Procedures Replacement of Right Knee Joint with Synthetic Substitute, Uncemented, Open Approach (07/06/20) Labs on day of discharge: 06/22/20 14:50 MRSA Nasal Screen Routine 06/22/20 15:45 Type and Screen Routine 07/06/20 07:32 COVID-19 ID NOW ([place]) Stat 07/06/20 07:41 Gabapentin [Neurontin] 600 mg PO PREOP ONE ceFAZolin Sodium/Dextrose,Iso [Ancef] 2 gm in 50 ml IV PREOP 07/06/20 07:41 Providone-Iodine Solution 5% nasal swab .Both Nares x2 pre-op Surgical prep, hair removal PREOP 07/06/20 07:45 Lactated Ringers [Lr] 1,000 ml IVCONT 100 mls/hr 07/06/20 08:29 Gabapentin [Neurontin] 300 mg .ROUTE .STK-MED ONE ceFAZolin Sodium/Dextrose,Iso [Ancef] 2 gm in 50 ml .ROUTE As directed 07/06/20 08:33 Midazolam HCl/PF [Versed] 2 mg .ROUTE .STK-MED ONE 07/06/20 08:40 Bupivacaine MPF 0.5 % [Sensorcaine MPF 0.5% 30 ML] 30 ml .ROUTE .STK-MED ONE propofoL [Diprivan] 200 mg IVPUSH .STK-MED ONE 07/06/20 09:56 Lidocaine HCl 2 % MPF [Xylocaine 2 % MPF] 5 ml .ROUTE .STK-MED ONE 07/06/20 10:51 fentaNYL citrate/PF [Sublimaze] 50 mcg .ROUTE .STK-MED ONE 07/06/20 11:49 fentaNYL citrate/PF [Sublimaze] 50 mcg .ROUTE .STK-MED ONE 07/06/20 11:52 Continuous pulse oximetry CONT Oxygen administration Simple Mask 8 lpm Vital Signs Q1H Vital Signs Q5MIN Acetaminophen [Tylenol] 650 mg PO ONCE PRN Albuterol Sulfate (0.083%) [Ventolin (0.083%)] 2.5 mg INHALE ONCE PRN HYDROmorphone HCl [Dilaudid] 0.25 mg IVPUSH Q5M PRN Promethazine HCL [Phenergan] 12.5 mg 0.9 % Sodium Chloride [Ns] 50 ml IV ONCE oxyCODONE HCl Immed Release [Roxicodone] 10 mg PO ONCE PRN oxyCODONE HCl Immed Release [Roxicodone] 5 mg PO ONCE PRN 07/06/20 12:47 ondansetron HCL [Zofran] 4 mg .ROUTE .STK-MED ONE 07/06/20 12:48 Ketorolac Tromethamine [Toradol] 30 mg .ROUTE .STK-MED ONE 07/06/20 12:49 Tranexamic Acid [Cyklokapron] 1,000 mg .ROUTE .STK-MED ONE Tranexamic Acid [Cyklokapron] 1,000 mg .ROUTE .STK-MED ONE 07/06/20 12:50 Surgical [PTH] Routine 07/06/20 13:13 Transfer Order Routine 07/06/20 13:19 Code Status Routine 07/06/20 13:38 HYDROmorphone HCl [Dilaudid] 0.5 mg .ROUTE .STK-MED ONE Promethazine HCL [Phenergan] 25 mg IV .STK-MED ONE 07/06/20 13:45 Promethazine HCL [Phenergan] 25 mg IV .STK-MED ONE 07/06/20 15:32 Acetaminophen [Tylenol] 650 mg PO Q6H PRN HYDROmorphone HCl [Dilaudid] 0.25 mg IVPUSH Q4H PRN Naloxone HCl [Narcan] 0.2 mg IVPUSH Q2M PRN Sennosides [Senokot] 17.2 mg PO BEDTIME PRN ondansetron HCL [Zofran] 4 mg IVPUSH Q8H PRN oxyCODONE HCl Immed Release [Roxicodone] 10 mg PO Q4H PRN 07/06/20 15:32 Apply ice pack .as needed Incentive Spirometry Q1HR WHILE AWAKE Oxygen administration Nasal Cannula 2 lpm Straight Urinary Catheterization NEEDED Vital Signs Q4H Physical Therapy Eval & Treat BID 07/06/20 16:00 0.9 % Sodium Chloride Flush [NS Flush] 3 ml IVFLUSH QSHIFT Dextrose 5 % and 0.45 % NaCl [D51/2Ns] 1,000 ml IVCONT 80 mls/hr 07/06/20 17:00 ceFAZolin Sodium/Dextrose,Iso [Ancef] 2 gm in 50 ml IV POSTOP 07/06/20 21:00 Celecoxib [CeleBREX] 200 mg PO BID oxyCODONE HCl ER [OxyCONTIN] 10 mg PO BID 07/06/20 22:00 XR knee RT 2V Stat 07/07/20 06:26 Basic Metabolic Panel Fasting DAILY@0600 Complete Blood Count Auto Diff DAILY@0600 07/07/20 08:00 Furosemide [Lasix] 20 mg PO BIDWM HYDROmorphone HCl [Dilaudid] 0.5 mg IVPUSH Q3H PRN 07/07/20 09:00 Folic Acid 3 mg PO DAILY Omeprazole [PriLOSEC] 20 mg PO DAILY amLODIPine Besylate [Norvasc] 10 mg PO DAILY iron,carbonyl-vitamin C 1 tab PO DAILY lisinopriL [Zestril] 40 mg PO DAILY 07/07/20 13:00 Enoxaparin Sodium [Lovenox] 40 mg SUBCUT Q24H 07/08/20 06:06 Basic Metabolic Panel Fasting DAILY@0600 Complete Blood Count Auto Diff DAILY@0600 Laboratory Last Values WBC 11.7 X10*3/uL (4.8-10.8) H 07/08/20 06:06 RBC 3.82 X10*6/uL (4.60-5.80) L 07/08/20 06:06 Hgb 10.6 g/dl (14.0-18.0) L 07/08/20 06:06 Hct 32.8 % (42-52) L 07/08/20 06:06 MCV 85.9 fL (80-98) 07/08/20 06:06 MCH 27.7 pg (27.0-33.0) 07/08/20 06:06 MCHC 32.3 g/dl (31.0-36.0) 07/08/20 06:06 RDW 12.5 % (11.0-16.0) 07/08/20 06:06 Plt Count 245 X10*3/uL (160-400) 07/08/20 06:06 MPV 9.3 fL (9.4-12.4) L 07/08/20 06:06 Immature Gran % (Auto) 0.6 % (0.0-0.4) H 07/08/20 06:06 Neut % (Auto) 72.8 % (45-73) 07/08/20 06:06 Lymph % (Auto) 16.9 % (20-40) L 07/08/20 06:06 [place] % (Auto) 7.9 % (2-11) 07/08/20 06:06 Eos % (Auto) 1.5 % (0-4) 07/08/20 06:06 Baso % (Auto) 0.3 % (0-2) 07/08/20 06:06 Lymph # (Auto) 2.0 X10*3/uL (1.2-4.9) 07/08/20 06:06 [place] # (Auto) 0.9 X10*3/uL (0.1-1.2) 07/08/20 06:06 Eos # (Auto) 0.2 X10*3/uL (0.0-0.4) 07/08/20 06:06 Baso # (Auto) 0.0 X10*3/uL (0.0-0.2) 07/08/20 06:06 Abs Immat Gran (auto) 0.07 X10*3/uL (0.00-0.03) H 07/08/20 06:06 Absolute Neuts (auto) 8.5 X10*3/uL (2.0-8.3) H 07/08/20 06:06 Absolute Nucleated RBC 0.000 X10*3/uL (0.0-0.012) 07/08/20 06:06 Nucleated RBC % (auto) 0.0 /100WBC (0.0-0.2) 07/08/20 06:06 Sodium 140 mmol/L (135-145) 07/08/20 06:06 Potassium 4.3 mmol/l (3.3-5.1) 07/08/20 06:06 Chloride 102 mmol/L (96-108) 07/08/20 06:06 Carbon Dioxide 32 mmol/L (22-29) H 07/08/20 06:06 Anion Gap 10 (12-20) L 07/08/20 06:06 BUN 6 mg/dL (9-16) L 07/08/20 06:06 Creatinine 0.67 mg/dL (0.5-1.4) 07/08/20 06:06 Estim Creat Clear Calc 168.1 07/08/20 06:06 Estimated GFR > 60 07/08/20 06:06 Fasting Glucose 114 mg/dL (60-99) H 07/08/20 06:06 Calcium 8.2 mg/dL (8.4-10.2) L 07/08/20 06:06 Nasal Screen MRSA (PCR) NEGATIVE (Negative) 06/22/20 14:50 Nasal S. aureus Screen NEGATIVE (Negative) 06/22/20 14:50 Nasal MRSA/S.aureus Interp SEE NOTE 06/22/20 14:50 COVID-19 (PETER) Negative (Negative) 07/06/20 07:32 COVID-19 Clin Com See Note 07/06/20 07:32 Blood Type A Positive 06/22/20 15:45 Antibody Screen NEGATIVE 06/22/20 15:45 Discharge Plan Discharge Patient Disposition: Home Health Service Referrals: [facility] [Outside] (Will need [facility] teaching and PT) Dax Doyle PA-C [Physician Commercial Leasing Manager] - Discharge Medications: New acetaminophen 325 mg Tablet 650 mg PO Q6H PRN (Reason: Pain, Mild (Pain Scale 1-3)) 30 Days Qty: 240 RF: 0 oxycodone 10 mg tablet 10 mg PO Q4H PRN (Reason: Pain, Moderate (Pain Scale 4-6) 7 Days Qty: 42 RF: 0 sennosides [Senna Lax] 8.6 mg Tablet 17.2 mg PO BEDTIME PRN (Reason: Constipation) 30 Days Qty: 60 RF: 0 folic acid 1 mg Tablet 3 mg PO DAILY 30 Days Qty: 90 RF: 0 Continued lisinopril 40 mg tablet 40 mg PO DAILY 90 Days Qty: 90 RF: 1 furosemide 20 mg tablet 20 mg PO BID 90 Days Qty: 180 RF: 2 (DME) Crutches See Rx Instructions .Route .MEDSUPPLY Qty: 1 RF: 0 cyclobenzaprine 10 mg tablet 10 mg PO TID PRN (Reason: muscle spasm) Qty: 14 RF: 0 lidocaine 4 % adhesive patch,medicated 1 patch topical DAILY PRN (Reason: pain) Qty: 10 RF: 0 folic acid 1 mg tablet 3 mg PO DAILY RF: 0 amlodipine 10 mg tablet 10 mg PO DAILY RF: 0 lansoprazole 30 mg capsule,delayed release(DR/EC) 30 mg PO DAILY RF: 0 iron,carbonyl-vitamin C 65 mg iron- 125 mg tablet,delayed release (DR/EC) 1 tab PO DAILY RF: 0 Held acetaminophen-codeine 300-30 mg tablet 1 tab PO BID PRN (Reason: pain) 10 Days Qty: 20 RF: 0 Hold Instructions: Resume on 08/05/20. methotrexate sodium 2.5 mg tablet 20 mg PO QWEEK RF: 0 Hold Instructions: Resume on 07/27/20. No Action ondansetron HCl [Zofran] 4 mg tablet 4 mg PO Q4H 14 Days Qty: 84 RF: 0 enoxaparin 40 mg/0.4 mL syringe 40 mg subcut Q24H 14 Days Qty: 5.6 RF: 0 Xarelto 10 mg tablet 10 mg PO DAILY 14 Days Qty: 14 RF: 0 promethazine 25 mg tablet 25 mg PO Q4-6H PRN (Reason: nausea and vomiting) 7 Days Qty: 30 RF: 3 Discharge Orders: Discharge Order (Routine); Ordered 07/08/20 Ordered By: Dax Doyle Diet: regular diet Activity on Discharge: Use cane or walker Discharge Date/Time: 07/08/20 10:45 Activity Restrictions/Additional Instructions: Physical Therapy for ROM 0-120, quad strength, gait training . Use walker for ambulation Limit stair climbing, No shower, No tub bath, No driving Continue lovenox x4 weeks Keep Aquacel dressing clean, dry and intact. Follow up with orthopedics in 2 weeks Visit Report Forms: Patient Portal Discharge page Care Plan Goals: Resotre fucntion of right knee Health Concerns: None Plan of Treatment: Physical Therapy Pain management DVT prophylaxis
== END 2020-07-08 10:45 | disposition home health service (06) | DRG 302 ==
LOC: HO.S3 07-07 07:46 → HO.SSSA 07-07 11:59
PROVIDERS: Physician Assistant; Admitting Provider Orthopaedic Surgery; PCP Physician Assistant; Visit Provider Orthopaedic Surgery
PROC: 0SRC0JA Replacement of Right Knee Joint with Synthetic Substitute, Uncemented, Open Approach (ICD-10-PCS; CPT 27447; principal; 2020-07-06 09:50)
DX: M17.11 Unilateral primary osteoarthritis, right knee (principal); M06.9 Rheumatoid arthritis, unspecified; G47.30 Sleep apnea, unspecified; Z20.828 Contact with and (suspected) exposure to other viral communicable diseases; Z98.84 Bariatric surgery status; Z79.899 Other long term (current) drug therapy; K21.9 Gastro-esophageal reflux disease without esophagitis
CPT/HCPCS: 36415; 73560; 80048; 85025; 86850; 86900; 86901; 87635; 87640; 87641; 88305; 88311; 97110; 97116; 97161; C1776; J0690; J1170; J1650; J1885; J2250; J2405; J3010

== ENCOUNTER → 2020-07-23 09:16 | Outpatient (BNVA) | payer OTHER, MEDICARE, SELFPAY | PROVIDERS: PCP Physician Assistant; Visit Provider Orthopaedic Surgery | DX: Z76.89 Persons encountering health services in other specified circumstances (principal) ==

== ENCOUNTER 2020-07-26 09:23 | Outpatient (REF) | payer OTHER, MEDICARE, SELFPAY ==
[2020-07-26 10:01] LABS: MANUAL DIFF FLAG NO
[2020-07-26 10:07] LABS: Basophils Absolute Auto 0.1 X10*3/uL (0.0-0.2); Basophils Percent Auto 0.7 % (0-2); Eosinophils Absolute Auto 0.3 X10*3/uL (0.0-0.4); Hematocrit 36.7 % (42-52); Hemoglobin 11.7 g/dl (14.0-18.0); Imm Gran Abs Auto 0.05 X10*3/uL (0.00-0.03); Imm Gran Pct Auto 0.6 % (0.0-0.4); Lymphocytes Absolute Auto 2.8 X10*3/uL (1.2-4.9); Lymphocytes Percent Auto 31.6 % (20-40); Mean Corpuscular HGB Conc 31.9 g/dl (31.0-36.0); Mean Corpuscular Hemoglobin 27.7 pg (27.0-33.0); Mean Platelet Volume 9.2 fL (9.4-12.4); Monocytes Absolute Auto 0.5 X10*3/uL (0.1-1.2); Neutrophils Absolute Auto 5.1 X10*3/uL (2.0-8.3); Neutrophils Percent Auto 58.1 % (45-73); Platelet Count 440 X10*3/uL (160-400); Red Blood Count 4.22 X10*6/uL (4.60-5.80); Red Cell Distribution Width 13.3 % (11.0-16.0); White Blood Count 8.7 X10*3/uL (4.8-10.8)
[2020-07-26 10:33] LABS: Alanine Aminotransferase 34 U/L (0-40); Albumin Level 4.4 g/dL (3.5-5.0); Alkaline Phosphatase 132 U/L (39-117); Anion Gap 11 (12-20); Aspartate Amino Transferase 20 U/L (5-37); Bilirubin Total 0.4 mg/dL (0.0-1.0); Blood Urea Nitrogen 12 mg/dL (9-16); C Reactive Protein 0.91 mg/dL (< or = 0.50); Calcium 9.2 mg/dL (8.4-10.2); Carbon Dioxide 33 mmol/L (22-29); Chloride 101 mmol/L (96-108); Estimated Glomerular Filt Rate > 60; Glucose Random 90 mg/dL (60-115); Potassium 4.2 mmol/l (3.3-5.1); Sodium 141 mmol/L (135-145); Total Protein 7.5 g/dL (6.5-8.0)
[2020-07-26 10:57] LABS: Erythrocyte Sedimentation Rate 27 MM/HR (0-15); HBsAGNum1 0.17 S/CO (0.00-0.99); Hepatitis B Surface Antigen Negative (Negative); ~HepC Num1 0.08 S/CO (0.00-0.79); ~Hepatitis C Antibody Nonreactive (Nonreactive)
[2020-07-26 11:35] LABS: HBS Num1 0.82 mIU/mL (0-7.99); HBc Num1 0.09 S/CO (0.00-0.79); Hepatitis B Core Antibody Nonreactive (Nonreactive); ~Hepatitis B Surface Antibody NONREACTIVE (Nonreactive)
[2020-07-28 08:20] LABS: Hepatitis A Antibody IgM 0.11 Index (0-0.79); ~Hepatitis A Antibody IgM Nonreactive (Nonreactive)
[2020-07-28 22:27] LABS: TS Negative Control Passed; TS Panel A 0; TS Panel B 0; TS Positive Control Passed; TSpotTB Negative (SeeBelow)
== END 2020-07-26 09:24 | disposition home or self-care (01) ==
LOC: HO.LAB 09:23
PROVIDERS: PCP Physician Assistant; Visit Provider Student in an Organized Health Care Education/Training Program
DX: M06.00 Rheumatoid arthritis without rheumatoid factor, unspecified site (principal)
CPT/HCPCS: 36415; 80053; 85025; 85652; 86140; 86481; 86704; 86706; 86709; 86803; 87340

== ENCOUNTER → 2020-08-19 07:42 | Outpatient (BNVA) | payer OTHER, MEDICARE, SELFPAY | PROVIDERS: PCP Physician Assistant; Visit Provider Orthopaedic Surgery | DX: Z76.89 Persons encountering health services in other specified circumstances (principal) ==

== ENCOUNTER 2020-08-27 08:00 | Outpatient (RCR) | payer OTHER, MEDICARE, SELFPAY ==
--- NOTE | 2020-07-23 11:16 | MHC.PT.EP ---
[facility] [place] Office [place] Office [place] Office [address] [phone] F: [phone] F: [phone] F: [phone] F: [phone] Physical Therapy Plan of Care Date of Evaluation: 07/23/20 Date of Surgery: July 06 Diagnosis: right TKA Assessment: The patient arrived s/p a standard knee replacement. No complications noted. AROM and strength are reduced in the knee at this time. Pt has an altered gait pattern, and decreased functional and community ambulation. Pt will benefit from skilled PT. Frequency and Duration: The patient will be seen 2x/week x 6 weeks Short Term Goals: 1. Pt to be able to move knee in functional PROM 5-110 to show improved joint mobility Cocktail Server Goals: 4 weeks - the patient will have no limiting pain in her knees during gait with community ambulation to show improved activity tolerance. 4 weeks - pt will have more quad control with TKE demonstrated by no medial collapse during a curb height step. 4 weeks -patient to be able to return to all functional movements and ADL's without limiting knee pain to show return to PLOF. 4.weeks - pt to regain full knee extension for improved gait pattern. Treatment Plan: Modalities to reduce pain, spasms and effusion. Manual therapy to restore motion and function. Therapeutic exercise to improve strength and flexibility. Neuromuscular re-education for posture and balance. Therapeutic activities to return to functional activities of daily living. Electronically signed by: Alicia Jo PT DPT Please sign and return to therapist. Thank you for your referral.
--- NOTE | 2020-11-23 08:27 | MHC.PT.DC ---
[facility] [place] Office [place] Office [place] Office [address] Kaur [address] [phone] F: [phone] F: [phone] F: [phone] F: [phone] Physical Therapy Discharge Report Diagnosis: right TKA Date of Surgery: July 06 Date of Evaluation: 07/23/20 Date of Discharge: 09/30/20 Treatments to Date: 8 Cancellations to Date: 0 No Shows to Date: 0 Discharge Status: Independent with HEP Patient Elected to Stop Visit noncompliance. Discharge Summary: 08/27/20 - PROM 0-2-110. We suggested continued hip and knee strengthening exercises with ankle pain noted during lateral step downs. Cuing was provided for proper technique during TKE to avoid excessive ankle movement and during step downs to reduce UE support. Pt also needed cues with squats to avoid knee valgus and excessive use of UE. During forward and lateral step downs pt demonstrates increased genu valgus; banded clamshells introduced to strengthen hip abductors with good tolerance and fatigue noted. Next session continue to perform ROM exercises with therapist over pressure to reach ROM goals and continue knee/hip strengthening exercises as tolerated by pt. Pt d/c due to visit non compliance. Electronically signed by: Alicia Jo PT DPT Please sign and return to therapist. Thank you for your referral.
== END 2020-11-23 08:35 | disposition other institution (70) ==
LOC: HO.PT 08:00
PROVIDERS: Visit Provider Orthopaedic Surgery
DX: Z47.1 Aftercare following joint replacement surgery (principal); Z96.651 Presence of right artificial knee joint
CPT/HCPCS: 97110; 97116; 97140; 97162; 97530

== ENCOUNTER → 2020-09-08 08:20 | Outpatient (BNVA) | payer OTHER, MEDICARE, SELFPAY | PROVIDERS: PCP Physician Assistant; Visit Provider Physician Assistant ==

== ENCOUNTER 2020-10-11 07:21 | Outpatient (REF) | payer OTHER, MEDICARE, SELFPAY | END 2020-10-11 07:22 | disposition home or self-care (01) | LOC: HO.HOSX 07:21 | PROVIDERS: Visit Provider Orthopaedic Surgery | DX: Z13.89 Encounter for screening for other disorder (principal) ==

== ENCOUNTER → 2020-10-28 11:07 | Outpatient (BNVA) | payer OTHER, MEDICARE, SELFPAY | PROVIDERS: Visit Provider Orthopaedic Surgery | DX: M06.00 Rheumatoid arthritis without rheumatoid factor, unspecified site (principal) | CPT/HCPCS: 20610; J1100 ==

== ENCOUNTER 2020-11-01 08:26 | Outpatient (REF) | payer OTHER, MEDICARE, SELFPAY ==
[2020-11-01 09:29] LABS: Alanine Aminotransferase 24 U/L (0-40); Albumin Level 4.6 g/dL (3.5-5.0); Alkaline Phosphatase 89 U/L (39-117); Anion Gap 15 (12-20); Aspartate Amino Transferase 17 U/L (5-37); Bilirubin Total 0.5 mg/dL (0.0-1.0); Blood Urea Nitrogen 17 mg/dL (9-16); Calcium 9.4 mg/dL (8.4-10.2); Carbon Dioxide 32 mmol/L (22-29); Chloride 102 mmol/L (96-108); Cholesterol 208 mg/dL; Estimated Glomerular Filt Rate > 60; Glucose Fasting 91 mg/dL (60-99); HDL Cholesterol 40 mg/dL; LDL Cholesterol Calculated 138 mg/dl; Potassium 4.7 mmol/L (3.3-5.1); Sodium 144 mmol/L (135-145); Total Protein 7.5 g/dL (6.5-8.0); Triglycerides 153 mg/dL
[2020-11-01 09:49] LABS: Prostate Specific Antigen Scr 0.58 ng/mL (<0.05-4.0); TSH reflex Free T4 0.97 uIU/mL (0.32-4.0)
== END 2020-11-01 08:27 | disposition home or self-care (01) ==
LOC: HO.LAB 08:26
PROVIDERS: PCP Physician Assistant; Visit Provider Physician Assistant
DX: Z01.812 Encounter for preprocedural laboratory examination (principal); Z12.5 Encounter for screening for malignant neoplasm of prostate; M06.9 Rheumatoid arthritis, unspecified; I10 Essential (primary) hypertension
CPT/HCPCS: 36415; 80053; 80061; 84153; 84443

== ENCOUNTER 2021-01-25 08:22 | Outpatient (REF) | payer OTHER, MEDICARE, SELFPAY ==
[2021-01-25 09:23] LABS: MANUAL DIFF FLAG NO
[2021-01-25 09:38] LABS: Basophils Percent Auto 0.5 % (0-2); Eosinophils Absolute Auto 0.3 X10*3/uL (0.0-0.4); Eosinophils Percent Auto 3.3 % (0-4); Hematocrit 42.8 % (42-52); Hemoglobin 13.9 g/dl (14.0-18.0); Imm Gran Abs Auto 0.02 X10*3/uL (0.00-0.03); Imm Gran Pct Auto 0.2 % (0.0-0.4); Lymphocytes Percent Auto 48.5 % (20-40); Mean Corpuscular HGB Conc 32.5 g/dl (31.0-36.0); Mean Corpuscular Hemoglobin 28.2 pg (27.0-33.0); Mean Corpuscular Volume 86.8 fL (80-98); Mean Platelet Volume 10.1 fL (9.4-12.4); Monocytes Absolute Auto 0.6 X10*3/uL (0.1-1.2); Monocytes Percent Auto 7.3 % (2-11); Neutrophils Absolute Auto 3.3 X10*3/uL (2.0-8.3); Neutrophils Percent Auto 40.2 % (45-73); Platelet Count 243 X10*3/uL (160-400); Red Blood Count 4.93 X10*6/uL (4.60-5.80); Red Cell Distribution Width 14.2 % (11.0-16.0); White Blood Count 8.3 X10*3/uL (4.8-10.8)
[2021-01-25 10:13] LABS: Alanine Aminotransferase 28 U/L (0-40); Albumin Level 4.9 g/dL (3.5-5.0); Alkaline Phosphatase 95 U/L (39-117); Anion Gap 13 (12-20); Aspartate Amino Transferase 20 U/L (5-37); Bilirubin Total 0.7 mg/dL (0.0-1.0); Blood Urea Nitrogen 18 mg/dL (9-16); C Reactive Protein 0.08 mg/dL (< or = 0.50); Calcium 9.5 mg/dL (8.4-10.2); Carbon Dioxide 30 mmol/L (22-29); Chloride 103 mmol/L (96-108); Estimated Glomerular Filt Rate > 60; Glucose Random 87 mg/dL (60-115); Potassium 4.3 mmol/L (3.3-5.1); Sodium 142 mmol/L (135-145); Total Protein 7.2 g/dL (6.5-8.0)
[2021-01-25 10:48] LABS: Erythrocyte Sedimentation Rate 4 MM/HR (0-15)
== END 2021-01-25 08:23 | disposition home or self-care (01) ==
LOC: HO.LAB 08:22
PROVIDERS: PCP Physician Assistant; Visit Provider Student in an Organized Health Care Education/Training Program
DX: M06.00 Rheumatoid arthritis without rheumatoid factor, unspecified site (principal); Z79.899 Other long term (current) drug therapy; Z87.891 Personal history of nicotine dependence
CPT/HCPCS: 36415; 80053; 85025; 85652; 86140

== ENCOUNTER → 2021-01-31 08:21 | Outpatient (BNVA) | payer OTHER, MEDICARE, SELFPAY | PROVIDERS: PCP Physician Assistant; Referring Provider Physician Assistant; Visit Provider Physician Assistant ==

== ENCOUNTER 2021-03-15 08:53 | Day surgery (SDC) | payer SELFPAY ==
[2021-03-10 09:10] VITALS: BMI 31.6
--- NOTE | 2021-03-14 10:18 | HO.ANESPROP2 ---
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) Annual physical exam (Acute) GERD (gastroesophageal reflux disease) (Acute) Colon cancer screening (Acute) Seronegative rheumatoid arthritis (Acute) Rheumatoid arthritis involving right knee (Acute) Rheumatoid arthritis (Acute) Past Medical History Medical History Back pain COVID-19 vaccine series completed Headache HTN (hypertension) Hx of osteoarthritis Hx of varicose veins Rheumatoid arthritis Rheumatoid arthritis involving right knee Seronegative rheumatoid arthritis Sleep apnea Family History Family History Mother HTN (hypertension) Father Diabetes Paternal Aunt Bone cancer Surgical History Surgical History History of arthroplasty of right knee History of Juan-en-Y gastric bypass (~04/27/16) History of total left hip arthroplasty History of total right hip arthroplasty (~04/03/17) History of total right knee replacement Social History Social History (Updated 03/10/21 @ 09:08 by Denisha Huynh) Are you a primary resident care aid to a significant other at home: No Do you presently have visiting nurse or other home services: No Alcohol intake: former Patient Tobacco Use Status: Former Tobacco user Quit Date: 1999 Years Smoked: 20 Use of substances other than those prescribed or required for medical reasons: Yes Substance Use Type: Marijuana Substance Use Frequency: Daily Are you DNR?: No Advance Directives: No Advance Directives Information Provided: No Advance Directives on File: No service: No Current occupational status: unemployed and disabled Meds Allergies Allergy/AdvReac Type Severity Reaction Status Date / Time pneumococcal vaccine Allergy Intermediate Swelling Verified 03/15/21 08:58 Home Medications Medication Instructions Recorded Confirmed Last Taken Type acetaminophen 300 mg-codeine 30 mg 1 tab PO BID PRN 03/10/21 03/10/21 Unknown History tablet Exam Exam Date and Time: March 14, 2021 1018 Height,Weight and Vital Signs: Height 6 ft 1 in Weight 108.862 kg Pertinent Lab Results Pertinent Lab Results: Laboratory Tests 01/25/21 01/25/21 09:05 09:05 WBC 8.3 Hgb 13.9 L Hct 42.8 Plt Count 243 D Sodium 142 Potassium 4.3 Chloride 103 Carbon Dioxide 30 H BUN 18 H Creatinine 0.79 Assessment and Plan Assessment Anesthesia Assessment: Chart Reviewed Documented by User: Shilpi Sloan MD 03/15/21 10:25 [facility] Past Medical History Medical History Back pain COVID-19 vaccine series completed Headache HTN (hypertension) Hx of osteoarthritis Hx of varicose veins Rheumatoid arthritis Rheumatoid arthritis involving right knee Seronegative rheumatoid arthritis Sleep apnea Family History Family History Mother HTN (hypertension) Father Diabetes Paternal Aunt Bone cancer Family history of problems with anesthesia: No Surgical History Surgical History History of arthroplasty of right knee History of Juan-en-Y gastric bypass (~04/27/16) History of total left hip arthroplasty History of total right hip arthroplasty (~04/03/17) History of total right knee replacement History of Problems with Anesthesia: No Social History Social History (Updated 03/10/21 @ 09:08 by Denisha Huynh) Are you a primary resident care aid to a significant other at home: No Do you presently have visiting nurse or other home services: No Alcohol intake: former Patient Tobacco Use Status: Former Tobacco user Quit Date: 2000 Years Smoked: 20 Use of substances other than those prescribed or required for medical reasons: Yes Substance Use Type: Marijuana Substance Use Frequency: Daily Are you DNR?: No Advance Directives: No Advance Directives Information Provided: No Advance Directives on File: No service: No Current occupational status: unemployed and disabled Meds Allergies Allergy/AdvReac Type Severity Reaction Status Date / Time pneumococcal vaccine Allergy Intermediate Swelling Verified 03/15/21 08:58 Home Medications Medication Instructions Recorded Confirmed Last Taken Type acetaminophen 300 mg-codeine 30 mg 1 tab PO BID PRN 03/10/21 03/10/21 Unknown History tablet Exam Height,Weight and Vital Signs: Height 6 ft 1 in Weight 108.862 kg Vital Signs Temp Pulse Resp BP Pulse Ox 98.3 F 79 16 136/86 97 03/15/21 09:02 03/15/21 09:02 03/15/21 09:02 03/15/21 09:02 03/15/21 09:02 Airway Mallampati Class: II TM Dist: >3cm Neck ROM: Full Partial: Upper Loose/Missing/Broken Teeth: Yes (Some missing) Heart: RRR Lungs: CTAB Assessment and Plan Assessment Anesthesia Assessment: Anesthesia Plan Discussed Final Anesthetic Review Family History of Problems with Anesthesia: No History of Problems with Anesthesia: No NPO: Yes ASA Class: III Final Preanesthetic Review: No Changes in Pt Med Stat, Meds/Allgs Chart Reviewed, Consent Obtained/Reviewed and Anes Risks/Benef Reviewed Patient Risk: Intermediate Procedure Risk: Low Assessment/Block/Sedation in SS: Assess/Block/Sedation-SS Anesthetic Plan Anesthetic Plan: MAC: Disposition: Standard PACU
[2021-03-15 09:02] VITALS: BP 136/86; PULSE 79; RESP 16; TEMP 36.8; O2SAT 97
--- NOTE | 2021-03-15 09:14 | MHC.SHP ---
Pre-Procedural Eval Section A Date of Service: 03/15/21 The patient is an INPATIENT: No The History & Physical has been completed within 30 days and I have reviewed it.: No Section B Chief Complaint: Screening, GERD Relevant Social History: Tobacco Use (former smoker) Present Medications: see Short Stay Collaborative assessment Medical History: Significant History (Headache HTN (hypertension) Hx of osteoarthritis Hx of varicose veins Rheumatoid arthritis Rheumatoid arthritis involving right knee Seronegative rheumatoid arthritis Sleep apnea) History of Previous Operations: Relevant previous surgery/procedure and date(s) (History of arthroplasty of right knee History of Juan-en-Y gastric bypass (~04/27/16) History of total left hip arthroplasty History of total right hip arthroplasty (~04/03/17) History of total right knee replacement) Allergies: Allergies Allergy/AdvReac Type Severity Reaction Status Date / Time pneumococcal vaccine Allergy Intermediate Swelling Verified 03/15/21 08:58 Review of Systems Sugical H&P ROS: Negative: Constitution, Cardiovascular and Respiratory and Yes, Specify: Gastrointestinal (GERD) Exam Surgical H&P Exam: Normal: Heart, Normal: Lungs, Normal: Extremities and Normal: Abdomen Plan Diagnosis/Plan: Unchanged I have reviewed the history and physical and performed a pertinent physical examination on my patient. No changes have occurred unless specified.
--- NOTE | 2021-03-15 09:27 | P.BOP_ITS ---
Brief Operative Note Date of Service: 03/15/21 Pre-op diagnosis: colon cancer screening, GERD Post-op diagnosis: other (GERD, Juan en Y Gastric bypass status, Colon polyps, hemorrhoids) Procedure: FLEXIBLE TRANSORAL UPPER GASTROINTESTINAL ENDOSCOPY WITH BIOPSIES AND COLONOSCOPY TILL CECUM WITH BIOPSIES AND SNARE POLYPECTOMY UPPER ENDOSCOPY Consent: Indications for the procedure and potential complications of bleeding, perforation, reaction to medications and missed diagnosis were discussed with the patient and informed consent was obtained. Instrument: Olympus GIF H 190 mid size upper endoscope Monitoring: Vital signs and clinical assessment, continuous EKG monitoring, Pulse oximetry, Carbon Dioxide monitoring and blood pressure monitoring were done throughout the procedure. Procedure: The patient was placed in the left lateral decubitis position and pre-procedure medications were administered and a bite block was placed. The endoscope was inserted into the mouth and advanced under direct vision to the third part of duodenum. A careful inspection was made as the upper endoscope was withdrawn including a retroflexed examination of the proximal stomach; Findings and interventions are described below. Findings: Esophagus: GE junction at 42 cms.. No esophagitis or Lepe's. Stomach: Status post Juan en Y gastric bypass. Normal anastomosis at 45 cms. Jejunum: Normal efferent limb Intervention: Biopsies as noted above COLONOSCOPY PROCEDURE NOTE Consent: Indications for the procedure and potential complications of bleeding, perforation, reaction to medications and missed diagnosis were discussed with the patient and informed consent was obtained. Instrument: Olympus PCF H 190 L variable stiffness pediatric colonoscope Monitoring: Vital signs and clinical assessment, intermittent blood pressure monitoring, continuous EKG monitoring, Pulse oximetry and Carbon Dioxide monitoring were done throughout the procedure. Colon withdrawl time was 23 minutes. Procedure: The patient was placed in the left lateral decubitis position and pre-procedure medications were administered. After a digital rectal examination of the ano-rectum, the video colonoscope was inserted into the rectum and advanced through the colon to the cecum. The colonoscope was slowly withdrawn in a retrograde panoramic fashion and the colon mucosa was carefully examined including a retroflexed view of the rectum. Findings and interventions are described below. Procedure Difficulty: : LLQ pressure applied to intubate the cecum Findings: Terminal Ileum: Not evaluated Cecum: Two 3-4 mm sessile polyps removed with a cold bx Ascending Colon: Two 4-5 mm sessile polyps removed with a cold bx. A 10 mm sessile polyp in the distal ascending colon removed with a cold snare Transverse Colon: Normal Descending Colon: Normal Sigmoid Colon: Normal Rectum: Normal Ano-rectum: Small internal hemorrhoids Colon preparation: Good after copious irrigation Impression and Post Procedure Diagnosis: Endoscopy Findings: ESOPHAGUS: No esophagitis or Lepe's STOMACH: Status post Juan en Y gastric bypass. Normal anastomosis at 45 cms. Colonoscopy Findings: Five small to medium sized polyps removed Small hemorrhoids on retroflexed exam. Plan: Await pathology results Patient has an appointment on 04/14/21 in the GI Clinic with JAKOB Shields. Repeat Colonoscopy interval based on path results - in 3-5 years if polyps are adenomatous and 10 years if polyps are hyperplastic. Above findings were reviewed with the patient and colon polyps and GERD handouts were given in the discharge area Surgeon: Minerva Shabazz MD Anesthesia: MAC (Tracy Khoury CRNA) Was an Drain Cleaner Plumber used for this Procedure?: No Drain Cleaner Plumber: Juliette Farias Estimated blood loss (mL): 0 Pathology: other (A. CECAL POLYPS B. ASCENDING COLON POLYPS) Condition: stable Disposition: PACU
[2021-03-15] MEDS: Lactated Ringers 1,000 ML 100 ML IVCONT (09:30)
[2021-03-15 10:17] VITALS: BP 94/53; PULSE 65; RESP 16; TEMP 36.4; O2SAT 98
[2021-03-15 10:35] VITALS: BP 116/68; PULSE 70; RESP 16; TEMP 36.4; O2SAT 100
--- NOTE | 2021-03-15 18:26 | P.OP_ITS ---
Operative Note Operative Note Date of Service: 03/15/21 Narrative: Pre-op diagnosis:?colon cancer screening, GERD Post-op diagnosis:?other (GERD, Juan en Y Gastric bypass status, Colon polyps, hemorrhoids) Procedure:? FLEXIBLE TRANSORAL UPPER GASTROINTESTINAL ENDOSCOPY WITH BIOPSIES AND COLONOSCOPY TILL CECUM WITH BIOPSIES AND SNARE POLYPECTOMY UPPER ENDOSCOPY Consent:?Indications for the procedure and potential complications of bleeding, perforation, reaction to medications and missed diagnosis were discussed with the patient and informed consent was obtained. Instrument:?Olympus GIF H 190 mid size upper endoscope Monitoring: Vital signs and clinical assessment, continuous EKG monitoring, Pulse oximetry, Carbon Dioxide monitoring and blood pressure monitoring were done throughout the procedure. Procedure:?The patient was placed in the left lateral decubitis position and pre-procedure medications were administered and a bite block was placed. The endoscope was inserted into the mouth and advanced under direct vision to the third part of duodenum. A careful inspection was made as the upper endoscope was withdrawn including a retroflexed examination of the proximal stomach; Findings and interventions are described below. Findings: Esophagus:?GE junction at 42 cms.. No esophagitis or Lepe's. Stomach:?Status post Juan en Y gastric bypass.? Normal anastomosis at 45 cms. Jejunum:?Normal efferent limb Intervention:?Biopsies as noted above COLONOSCOPY PROCEDURE NOTE Consent:?Indications for the procedure and potential complications of bleeding, perforation, reaction to medications and missed diagnosis were discussed with the patient and informed consent was obtained. Instrument:?Olympus PCF H 190 L variable stiffness pediatric colonoscope Monitoring:?Vital signs and clinical assessment, intermittent blood pressure monitoring, continuous EKG monitoring, Pulse oximetry and Carbon Dioxide monitoring were done throughout the procedure. Colon withdrawl time was 23 minutes. Procedure:?The patient was placed in the left lateral decubitis position and pre-procedure medications were administered. After a digital rectal examination of the ano-rectum, the video colonoscope was inserted into the rectum and advanced through the colon to the cecum. The colonoscope was slowly withdrawn in a retrograde panoramic fashion and the colon mucosa was carefully examined including a retroflexed view of the rectum. Findings and interventions are described below. Procedure Difficulty:?:? LLQ pressure applied to intubate the cecum Findings: Terminal Ileum: Not evaluated Cecum:? Two 3-4 mm sessile polyps removed with a cold bx Ascending Colon:??Two 4-5 mm sessile polyps removed with a cold? bx.? A 10 mm sessile polyp in the distal ascending colon removed with a cold snare Transverse Colon:??Normal Descending Colon:? Normal Sigmoid Colon:??Normal Rectum:??Normal Ano-rectum:??Small internal hemorrhoids Colon preparation:? Good after copious irrigation Impression and Post Procedure Diagnosis: Endoscopy Findings: ESOPHAGUS: No esophagitis or Lepe's STOMACH: Status post Juan en Y gastric bypass.? Normal anastomosis at 45 cms. Colonoscopy Findings: Five small to medium sized polyps removed Small hemorrhoids on retroflexed exam. Plan: Await pathology results Patient has an appointment on 04/14/21 in the GI Clinic with JAKOB Shields. Repeat Colonoscopy interval based on path results - in 3-5 years if polyps are adenomatous and 10 years if polyps are hyperplastic. Above findings were reviewed with the patient and colon polyps and GERD handouts were given in the discharge area Surgeon:?Minerva Shabazz MD Anesthesia:?MAC (Tracy Khoury CRNA) Was an Dietary Services Director used for this Procedure?:?No Dietary Services Director:?Juliette Farias Estimated blood loss (mL):?0 Pathology:?other (A. CECAL POLYPS? B. ASCENDING COLON POLYPS) Condition:?stable Disposition:?PACU
== END 2021-03-15 11:00 ==
LOC: HO.SSS 08:54
PROVIDERS: PCP Physician Assistant; Visit Provider Internal Medicine Gastroenterology
PROC: (CPT 45385; principal; 2021-03-15 10:00)
DX: Z12.11 Encounter for screening for malignant neoplasm of colon (principal); D12.0 Benign neoplasm of cecum; D12.2 Benign neoplasm of ascending colon; K64.8 Other hemorrhoids; K21.9 Gastro-esophageal reflux disease without esophagitis; I10 Essential (primary) hypertension; G47.30 Sleep apnea, unspecified; M06.061 Rheumatoid arthritis without rheumatoid factor, right knee; F12.90 Cannabis use, unspecified, uncomplicated; Z98.84 Bariatric surgery status; Z79.899 Other long term (current) drug therapy; Z87.891 Personal history of nicotine dependence
CPT/HCPCS: 45385; 45380; 43239; 88305; J2250

== ENCOUNTER → 2021-04-14 10:14 | Outpatient (BNVA) | payer MEDICARE, SELFPAY | PROVIDERS: PCP Physician Assistant; Visit Provider Physician Assistant | CPT/HCPCS: Q3014 ==

== ENCOUNTER 2021-04-15 09:45 | Outpatient (REF) | payer MEDICARE, SELFPAY ==
[2021-04-15 11:32] LABS: MANUAL DIFF FLAG NO
[2021-04-15 11:39] LABS: Basophils Percent Auto 0.4 % (0-2); Eosinophils Absolute Auto 0.3 X10*3/uL (0.0-0.4); Eosinophils Percent Auto 2.6 % (0-4); Hematocrit 42.6 % (42-52); Hemoglobin 14.3 g/dl (14.0-18.0); Imm Gran Abs Auto 0.03 X10*3/uL (0.00-0.03); Imm Gran Pct Auto 0.3 % (0.0-0.4); Lymphocytes Absolute Auto 4.9 X10*3/uL (1.2-4.9); Lymphocytes Percent Auto 49.2 % (20-40); Mean Corpuscular HGB Conc 33.6 g/dl (31.0-36.0); Mean Corpuscular Hemoglobin 29.1 pg (27.0-33.0); Mean Corpuscular Volume 86.6 fL (80-98); Mean Platelet Volume 9.9 fL (9.4-12.4); Monocytes Absolute Auto 0.6 X10*3/uL (0.1-1.2); Monocytes Percent Auto 5.9 % (2-11); Neutrophils Absolute Auto 4.1 X10*3/uL (2.0-8.3); Neutrophils Percent Auto 41.6 % (45-73); Platelet Count 266 X10*3/uL (160-400); Red Blood Count 4.92 X10*6/uL (4.60-5.80); Red Cell Distribution Width 13.2 % (11.0-16.0); White Blood Count 9.9 X10*3/uL (4.8-10.8)
[2021-04-15 12:08] LABS: Alanine Aminotransferase 59 U/L (0-40); Albumin Level 4.8 g/dL (3.5-5.0); Alkaline Phosphatase 93 U/L (39-117); Anion Gap 13 (12-20); Aspartate Amino Transferase 29 U/L (5-37); Bilirubin Total 0.5 mg/dL (0.0-1.0); Blood Urea Nitrogen 17 mg/dL (9-16); Calcium 9.8 mg/dL (8.4-10.2); Carbon Dioxide 30 mmol/L (22-29); Chloride 105 mmol/L (96-108); Estimated Glomerular Filt Rate > 60; Glucose Random 88 mg/dL (60-115); Potassium 4.5 mmol/L (3.3-5.1); Sodium 143 mmol/L (135-145); Total Protein 7.4 g/dL (6.5-8.0)
[2021-04-15 12:16] LABS: Erythrocyte Sedimentation Rate 5 MM/HR (0-15)
== END 2021-04-15 09:46 | disposition home or self-care (01) ==
LOC: HO.LAB 09:45
PROVIDERS: PCP Physician Assistant; Visit Provider Nurse Practitioner Family
DX: M06.00 Rheumatoid arthritis without rheumatoid factor, unspecified site (principal); Z79.899 Other long term (current) drug therapy
CPT/HCPCS: 36415; 80053; 85025; 85652; 86140; 99212

== ENCOUNTER → 2021-08-09 10:53 | Outpatient (BNVA) | payer MEDICARE, SELFPAY | PROVIDERS: PCP Physician Assistant; Visit Provider Nurse Practitioner Family | DX: M06.00 Rheumatoid arthritis without rheumatoid factor, unspecified site (principal) | CPT/HCPCS: 99212 ==

== ENCOUNTER 2021-11-03 08:29 | Outpatient (REF) | payer MEDICARE, SELFPAY ==
[2021-11-03 09:04] LABS: MANUAL DIFF FLAG NO
[2021-11-03 09:27] LABS: Basophils Percent Auto 0.5 % (0-2); Eosinophils Absolute Auto 0.2 X10*3/uL (0.0-0.4); Hematocrit 41.5 % (42.0-52.0); Hemoglobin 13.7 g/dl (14.0-18.0); Imm Gran Abs Auto 0.03 X10*3/uL (0.00-0.03); Imm Gran Pct Auto 0.4 % (0.0-0.4); Lymphocytes Absolute Auto 3.5 X10*3/uL (1.2-4.9); Lymphocytes Percent Auto 45.6 % (20-40); Mean Corpuscular Hemoglobin 29.2 pg (27.0-33.0); Mean Corpuscular Volume 88.5 fL (80.0-98.0); Mean Platelet Volume 9.9 fL (9.4-12.4); Monocytes Absolute Auto 0.5 X10*3/uL (0.1-1.2); Monocytes Percent Auto 6.1 % (2-11); Neutrophils Absolute Auto 3.4 x10*3/uL (2.0-8.3); Neutrophils Percent Auto 45.4 % (45-73); Platelet Count 226 X10*3/uL (160-400); Red Blood Count 4.69 X10*6/uL (4.60-5.80); Red Cell Distribution Width 12.9 % (11.0-16.0); White Blood Count 7.6 X10*3/uL (4.8-10.8)
[2021-11-03 09:44] LABS: Estimated Average Glucose 97 mg/dL
[2021-11-03 10:04] LABS: Alanine Aminotransferase 23 U/L (0-40); Albumin Level 4.4 g/dL (3.5-5.0); Alkaline Phosphatase 85 U/L (39-117); Anion Gap 10 (12-20); Aspartate Amino Transferase 17 U/L (5-37); Bilirubin Total 0.7 mg/dL (0.0-1.0); Blood Urea Nitrogen 15 mg/dL (9-16); Calcium 9.1 mg/dL (8.4-10.2); Carbon Dioxide 30 mmol/L (22-29); Chloride 104 mmol/L (96-108); Estimated Glomerular Filt Rate > 60; Glucose Fasting 95 mg/dL (60-99); Potassium 4.2 mmol/L (3.3-5.1); Sodium 140 mmol/L (135-145); Total Protein 6.6 g/dL (6.5-8.0)
[2021-11-03 10:05] LABS: Erythrocyte Sedimentation Rate 2 MM/HR (0-15)
[2021-11-03 10:14] LABS: Creatinine Urine 76.72 mg/dL; Microalbumin Urine < 5.0 mg/L
[2021-11-03 10:25] LABS: TSH reflex Free T4 1.05 uIU/mL (0.32-4.0)
== END 2021-11-03 08:30 | disposition home or self-care (01) ==
LOC: HO.LAB 08:29
PROVIDERS: Absent Provider Nurse Practitioner Family; PCP Physician Assistant; Visit Provider Physician Assistant
DX: M06.00 Rheumatoid arthritis without rheumatoid factor, unspecified site (principal); I10 Essential (primary) hypertension
CPT/HCPCS: 36415; 80053; 82043; 83036; 84443; 85025; 85652; 86140

== ENCOUNTER → 2021-11-07 08:48 | Outpatient (BNVA) | payer MEDICARE, SELFPAY | PROVIDERS: PCP Physician Assistant; Visit Provider Nurse Practitioner Family | DX: M06.00 Rheumatoid arthritis without rheumatoid factor, unspecified site (principal) | CPT/HCPCS: 99212 ==

== ENCOUNTER → 2022-02-17 11:02 | Outpatient (BNVA) | payer MEDICARE, SELFPAY | PROVIDERS: PCP Physician Assistant; Visit Provider Nurse Practitioner Family | DX: M06.00 Rheumatoid arthritis without rheumatoid factor, unspecified site (principal) | CPT/HCPCS: 99212 ==

== ENCOUNTER 2022-06-21 10:02 | Outpatient (REF) | payer MEDICARE, SELFPAY ==
[2022-06-21 11:11] LABS: MANUAL DIFF FLAG NO
[2022-06-21 11:34] LABS: Basophils Percent Auto 0.5 % (0-2); Eosinophils Absolute Auto 0.2 X10*3/uL (0.0-0.4); Eosinophils Percent Auto 2.2 % (0-4); Hematocrit 42.1 % (42.0-52.0); Imm Gran Abs Auto 0.02 X10*3/uL (0.00-0.03); Imm Gran Pct Auto 0.2 % (0.0-0.4); Lymphocytes Percent Auto 48.5 % (20-40); Mean Corpuscular HGB Conc 33.3 g/dl (31.0-36.0); Mean Corpuscular Hemoglobin 28.9 pg (27.0-33.0); Mean Platelet Volume 10.3 fL (9.4-12.4); Monocytes Absolute Auto 0.6 X10*3/uL (0.1-1.2); Monocytes Percent Auto 7.6 % (2-11); Neutrophils Absolute Auto 3.4 x10*3/uL (2.0-8.3); Platelet Count 253 X10*3/uL (160-400); Red Blood Count 4.84 X10*6/uL (4.60-5.80); Red Cell Distribution Width 12.7 % (11.0-16.0); White Blood Count 8.3 X10*3/uL (4.8-10.8)
[2022-06-21 12:17] LABS: Alanine Aminotransferase 23 U/L (0-40); Albumin Level 4.4 g/dL (3.5-5.0); Alkaline Phosphatase 93 U/L (39-117); Anion Gap 12 (12-20); Aspartate Amino Transferase 17 U/L (5-37); Bilirubin Total 0.5 mg/dL (0.0-1.0); Blood Urea Nitrogen 16 mg/dL (9-16); C Reactive Protein 0.15 mg/dL (< or = 0.50); Calcium 9.1 mg/dL (8.4-10.2); Carbon Dioxide 28 mmol/L (22-29); Chloride 105 mmol/L (96-108); Estimated Glomerular Filt Rate > 60; Glucose Random 88 mg/dL (60-115); Potassium 4.4 mmol/L (3.3-5.1); Sodium 141 mmol/L (135-145); Total Protein 6.7 g/dL (6.5-8.0)
[2022-06-21 12:19] LABS: Erythrocyte Sedimentation Rate 5 MM/HR (0-15)
== END 2022-06-21 10:03 | disposition home or self-care (01) ==
LOC: HO.HMGCLDS 10:02
PROVIDERS: PCP Physician Assistant; Visit Provider Nurse Practitioner Family
DX: M06.00 Rheumatoid arthritis without rheumatoid factor, unspecified site (principal)
CPT/HCPCS: 36415; 80053; 85025; 85652; 86140

== ENCOUNTER → 2022-08-09 08:51 | Outpatient (BNVA) | payer MEDICARE, MEDICAID, SELFPAY | PROVIDERS: PCP Physician Assistant; Visit Provider Nurse Practitioner Family | DX: M06.00 Rheumatoid arthritis without rheumatoid factor, unspecified site (principal) | CPT/HCPCS: 99212 ==

== ENCOUNTER → 2022-11-22 10:12 | Outpatient (BNVA) | payer MEDICARE, MEDICAID, SELFPAY | PROVIDERS: PCP Physician Assistant; Visit Provider Nurse Practitioner Family | DX: M06.00 Rheumatoid arthritis without rheumatoid factor, unspecified site (principal); Z79.620 Long term (current) use of immunosuppressive biologic | CPT/HCPCS: 99212 ==

== ENCOUNTER 2022-11-30 09:22 | Outpatient (REF) | payer MEDICARE, MEDICAID, SELFPAY ==
--- NOTE | ~2022-11-30 | XR_ITS ---
EXAMINATION: XR HAND, RIGHT CLINICAL INFORMATION: Rheumatoid arthritis. COMPARISON: Radiographs dated 06/11/2020. TECHNIQUE: PA, lateral, and oblique views of the right hand. FINDINGS: Bony alignment and mineralization are normal. There is mild peripheral osteophyte formation of the interphalangeal joint of the thumb and of the third distal interphalangeal joint. A benign sclerotic bone island is redemonstrated of the middle phalanx of the second finger. There is stable deformity of the third proximal phalangeal and metacarpal head is, which may be posttraumatic. No definite erosion is presently seen. The proximal and distal carpal rows are intact. The soft tissue planes are unremarkable. XR/XR hand RT min 3V IMPRESSION: There is mild osteoarthritic change of the first interphalangeal joint and the third distal interphalangeal joint. There are stable deformities of the heads of the third proximal phalanx and metacarpal bone. No definite erosion is presently seen. There is no fracture or dislocation. EXAMINATION: XR HAND, LEFT CLINICAL INFORMATION: Rheumatoid arthritis. COMPARISON: Radiographs dated 06/11/2020. TECHNIQUE: PA, lateral, and oblique views of the left hand. FINDINGS: Bony alignment and mineralization are normal. There is a slight ulnar minus variance. There is mild peripheral osteophyte formation of the third and fourth metacarpophalangeal joints and of the first carpometacarpal joint. No fracture or dislocation is seen. There is no definite bone erosion. A sclerotic bone island is redemonstrated of the fourth middle phalanx. The proximal and distal carpal rows are intact. The soft tissue planes are unremarkable. IMPRESSION: There is mild osteoarthritic change of the third and fourth metacarpophalangeal joints and of the first carpometacarpal joint. No definite bone erosion is seen. There is no fracture or dislocation.
--- NOTE | ~2022-11-30 | XR_ITS ---
EXAMINATION: XR HAND, RIGHT CLINICAL INFORMATION: Rheumatoid arthritis. COMPARISON: Radiographs dated 06/11/2020. TECHNIQUE: PA, lateral, and oblique views of the right hand. FINDINGS: Bony alignment and mineralization are normal. There is mild peripheral osteophyte formation of the interphalangeal joint of the thumb and of the third distal interphalangeal joint. A benign sclerotic bone island is redemonstrated of the middle phalanx of the second finger. There is stable deformity of the third proximal phalangeal and metacarpal head is, which may be posttraumatic. No definite erosion is presently seen. The proximal and distal carpal rows are intact. The soft tissue planes are unremarkable. XR/XR hand LT min 3V IMPRESSION: There is mild osteoarthritic change of the first interphalangeal joint and the third distal interphalangeal joint. There are stable deformities of the heads of the third proximal phalanx and metacarpal bone. No definite erosion is presently seen. There is no fracture or dislocation. EXAMINATION: XR HAND, LEFT CLINICAL INFORMATION: Rheumatoid arthritis. COMPARISON: Radiographs dated 06/11/2020. TECHNIQUE: PA, lateral, and oblique views of the left hand. FINDINGS: Bony alignment and mineralization are normal. There is a slight ulnar minus variance. There is mild peripheral osteophyte formation of the third and fourth metacarpophalangeal joints and of the first carpometacarpal joint. No fracture or dislocation is seen. There is no definite bone erosion. A sclerotic bone island is redemonstrated of the fourth middle phalanx. The proximal and distal carpal rows are intact. The soft tissue planes are unremarkable. IMPRESSION: There is mild osteoarthritic change of the third and fourth metacarpophalangeal joints and of the first carpometacarpal joint. No definite bone erosion is seen. There is no fracture or dislocation.
[2022-11-30 11:04] LABS: MANUAL DIFF FLAG NO
[2022-11-30 11:45] LABS: Basophils Absolute Auto 0.1 X10*3/uL (0.0-0.2); Basophils Percent Auto 0.6 % (0-2); Eosinophils Absolute Auto 0.2 X10*3/uL (0.0-0.4); Eosinophils Percent Auto 2.2 % (0-4); Hematocrit 43.3 % (42.0-52.0); Hemoglobin 14.4 g/dl (14.0-18.0); Imm Gran Abs Auto 0.03 X10*3/uL (0.00-0.03); Imm Gran Pct Auto 0.3 % (0.0-0.4); Lymphocytes Absolute Auto 3.8 X10*3/uL (1.2-4.9); Mean Corpuscular HGB Conc 33.3 g/dl (31.0-36.0); Mean Corpuscular Hemoglobin 28.5 pg (27.0-33.0); Mean Corpuscular Volume 85.6 fL (80.0-98.0); Mean Platelet Volume 10.5 fL (9.4-12.4); Monocytes Absolute Auto 0.7 X10*3/uL (0.1-1.2); Monocytes Percent Auto 7.1 % (2-11); Neutrophils Absolute Auto 4.9 x10*3/uL (2.0-8.3); Neutrophils Percent Auto 50.8 % (45-73); Platelet Count 264 X10*3/uL (160-400); Red Blood Count 5.06 X10*6/uL (4.60-5.80); White Blood Count 9.7 X10*3/uL (4.8-10.8)
[2022-11-30 12:17] LABS: Anion Gap 12 (12-20)
[2022-11-30 12:37] LABS: Alanine Aminotransferase 23 U/L (0-40); Albumin Level 4.5 g/dL (3.5-5.0); Alkaline Phosphatase 102 U/L (39-117); Aspartate Amino Transferase 19 U/L (5-37); Bilirubin Total 0.8 mg/dL (0.0-1.0); Blood Urea Nitrogen 15 mg/dL (9-16); C Reactive Protein 0.32 mg/dL (< or = 0.50); Carbon Dioxide 30 mmol/L (22-29); Chloride 105 mmol/L (96-108); Estimated Glomerular Filt Rate > 60; Glucose Random 84 mg/dL (60-115); Potassium 3.7 mmol/L (3.3-5.1); Sodium 143 mmol/L (135-145); Total Protein 6.9 g/dL (6.5-8.0)
[2022-11-30 12:38] LABS: Erythrocyte Sedimentation Rate 7 MM/HR (0-15)
== END 2022-11-30 09:23 | disposition home or self-care (01) ==
LOC: HO.HMGCLDS 09:22
PROVIDERS: PCP Physician Assistant; Visit Provider Nurse Practitioner Family
DX: M06.00 Rheumatoid arthritis without rheumatoid factor, unspecified site (principal)
CPT/HCPCS: 36415; 73130; 80053; 85025; 85652; 86140

== ENCOUNTER → 2022-12-15 09:03 | Outpatient (BNVA) | payer MEDICARE, MEDICAID, SELFPAY | PROVIDERS: PCP Physician Assistant; Visit Provider Nurse Practitioner Family | DX: M06.00 Rheumatoid arthritis without rheumatoid factor, unspecified site (principal) | CPT/HCPCS: 99212 ==

== ENCOUNTER 2023-02-16 14:01 | Outpatient (AMB) | payer MEDICARE, MEDICAID, SELFPAY ==
[2023-02-16 14:12] VITALS: BP 150/90; PULSE 108; O2SAT 97; BMI 35.6
--- NOTE | 2023-02-16 14:12 | MHC.PC.OV ---
Vital Signs 02/16/23 14:12 Height 6 ft 1 in Weight 270 lb BMI 35.6 BP 150/90 H Blood Pressure Location Lt brachial Position Standing Pulse 108 H Pulse Source Pulse Oximeter Pulse Oximetry (%) 97 Oxygen Delivery Method Room Air Intake Visit Reasons: Hemorrhoid pain Track Template Maker Required: No Accompanied by: Self / Same As Patient Allergies pneumococcal vaccine Allergy (Intermediate, Verified 02/16/23 14:12) Swelling methotrexate Adverse Reaction (Intermediate, Verified 02/16/23 14:12) Oral ulcers Tobacco use date assessed: 02/16/23 Dental Screening Dental Screen Date: 02/16/23 Did you have a dental visit in the last 12 months?: Yes Did you have a dental problem in the last 6 months where you did not have access to dental care?: No Was dental information given to patient?: Patient has dentist HPI HPI Comments History of Present Illness Details 52-year-old male past medical history significant for are rheumatoid arthritis, GERD, hypertension, generalized anxiety disorder and borderline high cholesterol. Patient of Vic Penny last seen in January. Patient presents today for hemorrhoid pain since sunday, has been using preparation H with relief. Patient denies any rectal bleeding, blood in his stool or blood on tissue after wiping. Patient states has had hemorrhoids in the past but they usually resolve sooner than this. [facility] Medical History Back pain COVID-19 vaccine series completed Headache HTN (hypertension) Hx of osteoarthritis Hx of varicose veins Rheumatoid arthritis Rheumatoid arthritis involving right knee Seronegative rheumatoid arthritis Sleep apnea Surgical History History of arthroplasty of right knee History of Juan-en-Y gastric bypass (~04/27/16) History of total left hip arthroplasty History of total right hip arthroplasty (~04/03/17) History of total right knee replacement Hx of colonoscopy Family History Mother HTN (hypertension) Father Diabetes Paternal Aunt Bone cancer Social History Are you a primary health care analyst to a significant other at home: No Do you presently have visiting nurse or other home services: No Alcohol intake: former Patient Tobacco Use Status: Former Tobacco user Quit Date: 1999 Smoked: 20 e-Cigarette/Vaping Use: Never Used Substance Use Type: Marijuana service: No Current occupational status: unemployed and disabled Cognitive needs: No Hearing needs: No Vision needs: No Questionnaire PHQ-9 Over the last 2 weeks, how often have you been bothered by any of the following problems? 1. Little interest or pleasure in doing things: not at all 2. Feeling down, depressed, or hopeless: not at all 3. Trouble falling or staying asleep, or sleeping too much: not at all 4. Feeling tired or having little energy: not at all 5. Poor appetite or overeating: several days 6. Feeling bad about yourself - or that you are a failure or have let yourself or your family down: not at all 7. Trouble concentrating on things, such as reading the newspaper or watching television: not at all 8. Moving or speaking so slowly that other people could have noticed. Or the opposite - being so fidgety or restless that you have been moving around a lot more than usual: not at all 9. Thoughts that you would be better off or of hurting yourself in some way: not at all Total score: 1 Depression Screening Interpretation: Negative 62763 - PHQ-9 Billing: Yes Source: Developed by Drs. Pascual Alegria, Brie Villalta, Orion Rea and colleagues, with an educational sara from [employer]. Thrive Questionnaire Date Thrive assessed: 02/16/23 I am a: Patient What is your living situation today?: I have a steady place to live Within the past 12 months, did the food you bought not last and you didn't have the money to get more?: Never true Within the past 12 months, did you worry whether your food would run out before you got money to buy more?: Never true Do you have trouble paying for medicines?: No Do you have trouble getting transportation to medical appointments?: No Do you have trouble paying your heating and electricity bill?: No Do you have trouble taking care of your child, family member or friend?: No Do you have trouble with day-to-day activities such as bathing, preparing meals, shopping, managing finances, etc.?: No Are you currently unemployed and looking for a job?: No Are you interested in more education?: No Currently or been in a relationship where the following occur: no concerns reported AUDIT C Alcohol Use Questionnaire (AUDIT-C) 1. How often do you have a drink containing alcohol?: Never 3. How often do you have six or more drinks on one occasion?: Never Total Score: 0 LUCI-7 AMB Questionnaire LUCI-7 Date LUCI - 7 assessed: 02/16/23 Feeling nervous, anxious, or on edge: 2 = More than half the days Not being able to stop or control worryin = Several days Worrying too much about different things: 2 = More than half the days Trouble relaxin = Not at all Being so restless that it is hard to sit still: 0 = Not at all Becoming easily annoyed or irritable: 2 = More than half the days Feeling afraid as if something awful might happen: 0 = Not at all Total LUCI-7 score (0-4 normal; 5-9 mild; 10-14 moderate; 15-21 severe): 7 Source: Developed by Drs. Pascual Alegria, Brie Villalta, Orion Rea and colleagues, with an educational sara from [employer]. LUCI-7 Assessment Billing LUCI-7 Assessment Tool: LUCI-7 Assessment 05026 Review of Systems Const Denies chills, Denies fatigue, Denies fever(s) and Denies poor appetite Eyes Denies no additional complaints ENT Reports Normal hearing present Card Denies chest pain, Denies syncope, Denies rapid heart rate and Denies dyspnea Resp Denies cough and Denies dyspnea GI Denies abdominal pain, Denies hematochezia, Denies change in stool character, Denies constipation, Denies diarrhea, Denies nausea, Denies vomiting and Reports other (hemmrhoids) Denies dysuria, Denies urinary frequency and Denies urinary urgency Neuro Reports Normal hearing present, Denies confusion and Denies syncope Psych Denies confusion Endo Denies fatigue Physical exam (Primary Care) Vital Signs: Last Vital Signs Pulse 108 H 02/16/23 14:12 BP 150/90 H 02/16/23 14:12 Pulse Ox 97 02/16/23 14:12 Oxygen Delivery Method Room Air 02/16/23 14:12 BMI result Body Mass Index 35.6 Tobacco/Smoking Status: Tobacco use Status Tobacco use date assessed 02/16/23 02/16/23 14:15 Patient Tobacco Use Status Former Tobacco user 02/16/23 14:15 e-Cigarette/Vaping Use Never Used 02/16/23 14:15 PHQ-9: PHQ-9 Score PHQ-9: Total score 1 02/16/23 14:27 Depression Screening Interpretation: Negative Thrive Assessment: Date of Thrive Assessment Date Thrive assessed 02/16/23 02/16/23 14:15 Currently or been in a relationship where the following occur: no concerns reported Const General: No confusion Orientation/consciousness: No confusion HENMT Head: Yes normocephalic and Yes atraumatic Eyes Conjunctivae: conjunctivae normal Chest Chest palpation & inspection: normal inspection of the chest Resp Effort & Inspection: normal respiratory effort Auscultation: clear to auscultation bilaterally, no crackles, no rhonchi and no wheezes Cardio Rate: regular rate Rhythm: regular rhythm Heart sounds: S1 normal heart sound present and S2 normal heart sound present GI Inspection: Yes normal to inspection Rectal Exam - Male: Yes External hemorrhoid(s) present (non tender, not bleeding ) Neuro General: No confusion Cranial nerves: Yes Normal hearing present Extrem General: No edema Assessment and Plan Assessment & Plan (1) Hemorrhoids: Code(s): K64.9 - Unspecified hemorrhoids Plan: Patient declined prescription for Proctosol at this time states that the preparation H she is using is helping him. Referral entered for general surgery for further evaluation and treatment. (2) GERD (gastroesophageal reflux disease): Code(s): K21.9 - Gastro-esophageal reflux disease without esophagitis Plan: Patient states the lamp resolves not covered by his insurance so would like a new prescription to go back on his previously prescribed pantoprazole 20 mg daily. script sent to patient's pharmacy. (3) HTN (hypertension): Code(s): I10 - Essential (primary) hypertension Qualifiers: Hypertension type: essential hypertension Qualified Code(s): I10 - Essential (primary) hypertension Plan: Lisinopril 40 mg sent to patient's pharmacy. Follow low-salt diet and exercise Plan Keep scheduled follow-up with PCP. Orders: Referrals General Surgery Referral K64.9 - Unspecified hemorrhoids Medications: New pantoprazole 20 mg PO DAILY 30 tabs 3RF F41.1 - Generalized anxiety disorder Discontinued lansoprazole Discontinued Reason: Insurance Denied 30 mg PO DAILY 90 days 90 caps 1RF K21.9 - Gastro-esophageal reflux disease without esophagitis Coding Level of Care Code Est Pt Level 3 (33235) Diagnoses Hemorrhoids K64.9 GERD (gastroesophageal reflux disease) K21.9 HTN (hypertension) I10 Hypertension type: essential hypertension Additional Codes LUCI-7 Assessment Billing - LUCI-7 Assessment Tool: LUCI-7 Assessment 67068 ([id number])
== END 2023-02-16 14:42 | disposition home or self-care (01) ==
PROVIDERS: PCP Physician Assistant; Visit Provider Nurse Practitioner Family
DX: K64.9 Unspecified hemorrhoids (principal); K21.9 Gastro-esophageal reflux disease without esophagitis; I10 Essential (primary) hypertension
CPT/HCPCS: 99213

== ENCOUNTER 2023-02-19 09:58 | Outpatient (AMB) | payer MEDICARE, MEDICAID, SELFPAY ==
[2023-02-19 10:02] VITALS: BP 151/83; PULSE 101; BMI 35.8
--- NOTE | 2023-02-19 10:02 | A.OFFVIS_ITS ---
Intake Vital Signs 02/19/23 10:02 Height 6 ft 1 in Weight 271 lb BMI 35.8 BP 151/83 H Blood Pressure Location Rt brachial Position Sitting Pulse 101 H Intake Visit Reasons: Hemorrhoids Intake Note: Patient referred for bleeding external hemorrhoids. Patient having a flare up for 1wk with bleeding. Hx of colonoscopy 3yrs ago. Had 2 polyps removed. Patient reports he is due for colonoscopy. Auto Technician Required: No Accompanied by: Self / Same As Patient Allergies pneumococcal vaccine Allergy (Intermediate, Verified 02/19/23 10:09) Swelling methotrexate Adverse Reaction (Intermediate, Verified 02/19/23 10:09) Oral ulcers HPI HPI Comments History of Present Illness Details Patient presents with a longstanding history of hemorrhoidal symptoms. Complaints of pain, bleeding, and discomfort. Patient had colonoscopy approximately 2 years ago which was otherwise within normal limits aside from polyps. He has had most recent episode approximately 2 weeks ago of tremendous pain and swelling of the hemorrhoid. He wishes to have this excised. Chart was reviewed patient evaluated. Patient has had a plethora of surgeries including gastric bypass where he has lost a significant amount of weight. He has had bilateral hip replacements as well as right total knee replacement. [facility] Medical History Back pain COVID-19 vaccine series completed Headache HTN (hypertension) Hx of osteoarthritis Hx of varicose veins Rheumatoid arthritis Rheumatoid arthritis involving right knee Seronegative rheumatoid arthritis Sleep apnea Surgical History History of arthroplasty of right knee History of Juan-en-Y gastric bypass (~04/27/16) History of total left hip arthroplasty History of total right hip arthroplasty (~04/03/17) History of total right knee replacement Hx of colonoscopy Family History Mother HTN (hypertension) Father Diabetes Paternal Aunt Bone cancer Social History Are you a primary primary care nurse to a significant other at home: No Do you presently have visiting nurse or other home services: No Alcohol intake: former Patient Tobacco Use Status: Former Tobacco user Quit Date: 2000 Years Smoked: 20 e-Cigarette/Vaping Use: Never Used Substance Use Type: Marijuana service: No Current occupational status: unemployed and disabled Cognitive needs: No Hearing needs: No Vision needs: No Physical Exam Vital Signs: Last Vital Signs Pulse 101 H 02/19/23 10:02 BP 151/83 H 02/19/23 10:02 BMI result Body Mass Index 35.8 Chest Other: Chest breath sounds bilaterally, HS 1 in 2 GI Other: Abdomen mildly corpulent. Rectal exam demonstrates an enormous swollen hemorrhoid in the left lateral position prone. Rectal exam was deferred secondary to patient discomfort. Assessment & Plan Assessment & Plan (1) Hemorrhoids: Code(s): K64.9 - Unspecified hemorrhoids Plan Risks, benefits, and alternatives hemorrhoidectomy reviewed with the patient and included but not limited to bleeding, infection, recurrence, numbness, pain, scarring, incontinence and the patient wishes to proceed. Arrangements will be made for this. All questions were answered. Patient will receive a mini bowel prep day prior to the procedure. Coding Level of Care Code New Pt Level 4 (93553) Diagnoses Hemorrhoids K64.9
== END 2023-02-19 10:18 | disposition home or self-care (01) ==
PROVIDERS: PCP Physician Assistant; Referring Provider Nurse Practitioner Family; Visit Provider Surgery
DX: K64.9 Unspecified hemorrhoids (principal)
CPT/HCPCS: 99204

== ENCOUNTER → 2023-02-19 09:58 | Outpatient (BNVA) | payer MEDICARE, MEDICAID, SELFPAY | PROVIDERS: PCP Physician Assistant; Referring Provider Nurse Practitioner Family; Visit Provider Surgery | DX: K64.9 Unspecified hemorrhoids (principal) | CPT/HCPCS: 99202 ==

== ENCOUNTER 2023-03-15 08:02 | Day surgery (SDC) | payer MEDICARE, MEDICAID, SELFPAY ==
[2023-03-12 14:55] VITALS: BMI 35.8
--- NOTE | 2023-03-14 09:34 | HO.ANESPROP2 ---
HPI - Anesthesia Eval Consult details Narrative: 53yo M for Hemorrhoidectomy, lithotomy,mini ligature Immunologics for RA PMFSH Active Problems Active Problems: All Active Problems (Updated 03/05/23 @ 21:09 by Erasmo Flowers MD) Hemorrhoids (Acute) LUCI (generalized anxiety disorder) (Acute) Borderline high cholesterol (Acute) Obese (Acute) GERD (gastroesophageal reflux disease) (Acute) Tubular adenoma (Acute) Lower extremity edema (Acute) Osteoarthritis of knee (Acute) HTN (hypertension) (Acute) Osteoarthritis of right knee (Acute) Status post total right knee replacement not using cement (Acute) 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 (Acute) GERD (gastroesophageal reflux disease) (Acute) Colon cancer screening (Acute) Seronegative rheumatoid arthritis (Acute) Past Medical History Medical History (Updated 03/05/23 @ 21:09 by Erasmo Flowers MD) Back pain COVID-19 vaccine series completed Headache HTN (hypertension) Hx of osteoarthritis Hx of varicose veins Rheumatoid arthritis Rheumatoid arthritis involving right knee Seronegative rheumatoid arthritis Sleep apnea Family History Family History Mother HTN (hypertension) Father Diabetes Paternal Aunt Bone cancer Family history of problems with anesthesia: No Surgical History Surgical History (Updated 02/19/23 @ 10:22 by Branden De MD) History of arthroplasty of right knee History of Juan-en-Y gastric bypass (~04/27/16) History of total left hip arthroplasty History of total right hip arthroplasty (~04/03/17) History of total right knee replacement Hx of colonoscopy History of Problems with Anesthesia: No Social History Social History Are you a primary personal care worker to a significant other at home: No Do you presently have visiting nurse or other home services: No Alcohol intake: former Patient Tobacco Use Status: Former Tobacco user Quit Date: 1999 Years Smoked: 20 e-Cigarette/Vaping Use: Never Used Substance Use Type: Marijuana service: No Current occupational status: unemployed and disabled Cognitive needs: No Hearing needs: No Vision needs: No Meds Allergies Allergy/AdvReac Type Severity Reaction Status Date / Time pneumococcal vaccine Allergy Intermediate Swelling Verified 02/19/23 10:09 methotrexate AdvReac Intermediate Oral ulcers Verified 02/19/23 10:09 Home Medications Medication Instructions Recorded Confirmed Last Taken Type ondansetron HCl 4 mg tablet 4 mg PO Q4H PRN 04/15/21 01/23/23 Unknown History (Charlie) Exam Exam Date and Time: March 14, 2023 0934 Height,Weight and Vital Signs: Height 6 ft 1 in Weight 122.924 kg Pertinent Lab Results Pertinent Lab Results: Laboratory Tests 11/30/22 11/30/22 09:28 09:28 WBC 9.7 Hgb 14.4 Hct 43.3 Plt Count 264 Sodium 143 Potassium 3.7 Chloride 105 Carbon Dioxide 30 H BUN 15 Creatinine 0.71 Assessment and Plan Assessment Anesthesia Assessment: Chart Reviewed Final Anesthetic Review Family History of Problems with Anesthesia: No History of Problems with Anesthesia: No
--- NOTE | 2023-03-14 10:24 | MHC.SHP ---
Pre-Procedural Eval Section A Date of Service: 03/14/23 The patient is an INPATIENT: No Changes since office visit: No Cold of Flu in the past 2 weeks, No New Medical Problems, No Changes in Medication and No Patient answered all questions The History & Physical has been completed within 30 days and I have reviewed it.: Yes Section B Chief Complaint: Unspecified hemorrhoids Allergies: Allergies Allergy/AdvReac Type Severity Reaction Status Date / Time pneumococcal vaccine Allergy Intermediate Swelling Verified 02/19/23 10:09 methotrexate AdvReac Intermediate Oral ulcers Verified 02/19/23 10:09 Plan I have reviewed the history and physical and performed a pertinent physical examination on my patient. No changes have occurred unless specified. Time Spent With Patient Time: Total time managing care of this patient today ____ minutes.
[2023-03-15 09:27] VITALS: BP 142/76; PULSE 75; RESP 16; TEMP 36.6; O2SAT 97
[2023-03-15] MEDS: Lactated Ringers 1,000 ML 100 ML IVCONT (09:48)
--- NOTE | 2023-03-15 11:01 | P.CONAN_ITS ---
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) GERD (gastroesophageal reflux disease) (Acute) Colon cancer screening (Acute) Seronegative rheumatoid arthritis (Acute) Past Medical History Medical History (Updated 03/05/23 @ 21:09 by Erasmo Flowers MD) Back pain COVID-19 vaccine series completed Headache HTN (hypertension) Hx of osteoarthritis Hx of varicose veins Rheumatoid arthritis Rheumatoid arthritis involving right knee Seronegative rheumatoid arthritis Sleep apnea Family History Family History Mother HTN (hypertension) Father Diabetes Paternal Aunt Bone cancer Family history of problems with anesthesia: No Surgical History Surgical History (Updated 02/19/23 @ 10:22 by Branden De MD) History of arthroplasty of right knee History of Juan-en-Y gastric bypass (~04/27/16) History of total left hip arthroplasty History of total right hip arthroplasty (~04/03/17) History of total right knee replacement Hx of colonoscopy History of Problems with Anesthesia: No Social History Social History Are you a primary medicare contact specialist to a significant other at home: No Do you presently have visiting nurse or other home services: No Alcohol intake: former Patient Tobacco Use Status: Former Tobacco user Quit Date: 1999 Years Smoked: 20 e-Cigarette/Vaping Use: Never Used Use of substances other than those prescribed or required for medical reasons: Yes Substance Use Type: Marijuana Are you DNR?: No Advance Directives: No Advance Directives Information Provided: Yes service: No Current occupational status: unemployed and disabled Cognitive needs: No Hearing needs: No Vision needs: No Meds Allergies Allergy/AdvReac Type Severity Reaction Status Date / Time pneumococcal vaccine Allergy Intermediate Swelling Verified 02/19/23 10:09 methotrexate AdvReac Intermediate Oral ulcers Verified 02/19/23 10:09 Active Medications: Current Medications Lactated Ringer's (Lr) 1,000 mls @ 100 mls/hr IVCONT .Q10H JULIO CESAR Last Admin: 03/15/23 09:48 Dose: 100 mls/hr Home Medications Medication Instructions Recorded Confirmed Last Taken Type ondansetron HCl 4 mg tablet 4 mg PO Q4H PRN 04/15/21 01/23/23 Unknown History (Charlie) Exam Exam Date and Time: March 15, 2023 1101 Height,Weight and Vital Signs: Height 6 ft 1 in Weight 122.924 kg Last Vital Signs Temp 97.9 F 03/15/23 09:27 Pulse 75 03/15/23 09:27 Resp 16 03/15/23 09:27 BP 142/76 H 03/15/23 09:27 Pulse Ox 97 03/15/23 09:27 O2 Del Method Room Air 03/15/23 09:27 Airway Mallampati Class: III TM Dist: >3cm Neck ROM: Full Partial: Lower Assessment and Plan Assessment Anesthesia Assessment: Anesthesia Plan Discussed and Chart Reviewed Final Anesthetic Review Family History of Problems with Anesthesia: No History of Problems with Anesthesia: No NPO: Yes ASA Class: III Final Preanesthetic Review: No Changes in Pt Med Stat, Meds/Allgs Chart Reviewed, Consent Obtained/Reviewed and Anes Risks/Benef Reviewed Patient Risk: Intermediate Procedure Risk: Low Anesthetic Plan Anesthetic Plan: GA Disposition: Standard PACU
[2023-03-15 11:55] VITALS: BP 147/93; PULSE 69; RESP 16; TEMP 36.1; O2SAT 100
--- NOTE | 2023-03-15 12:01 | P.OP_ITS ---
Operative Note Operative Note Date of Service: 03/15/23 Narrative: Preoperative diagnosis: [] Symptomatic hemorrhoids Postop diagnosis: [] Same Procedure [] hemorrhoidectomy Surgeon: [] [employer] Technician: [] Type of Anesthesia: [] MAC Indication for surgery: [] Uneventful hemorrhoidectomy of 3 and 7 o'clock positions. Difficult procedure secondary to patient being a bit combative and marked redundant skin of the perineum and anorectal area secondary to profound prior weight loss. Findings: [] Patient brought to the operating room, placed on operative table in supine position, after adequate level of MAC anesthesia was induced, patient was placed in lithotomy position. The anorectal area were prepped and draped in usual sterile fashion. The hemorrhoidal areas as noted above were East anesthetized with 1% lidocaine/0.5% Marcaine. Sequential double firing of mini ligature device was used to transect each hemorrhoid. Exposure was difficult secondary to patient's marked redundant skin in the area and his being somewhat uncooperative during the procedure. Completion, wounds were irrigated, secured hemostasis. Bupivacaine impregnated Gelfoam plug followed by dressing were applied. Sponge, needle, and instrument counts were reported to be correct. Patient tolerated the procedure and emerged from anesthesia stable condition. EBL minimal
[2023-03-15] MEDS: oxyCODONE HCl Immed Release 5 MG TABLET PO (12:03)
[2023-03-15 12:10] VITALS: BP 150/89; PULSE 75; RESP 16; TEMP 36.3; O2SAT 99
== END 2023-03-15 12:30 | disposition home or self-care (01) ==
PROVIDERS: PCP Physician Assistant; Visit Provider Surgery
PROC: (CPT 46946; principal; 2023-03-15 10:50)
DX: K64.8 Other hemorrhoids (principal); R45.6 Violent behavior; L98.7 Excessive and redundant skin and subcutaneous tissue; Z98.84 Bariatric surgery status; R63.4 Abnormal weight loss; Z68.35 Body mass index [BMI] 35.0-35.9, adult; M06.061 Rheumatoid arthritis without rheumatoid factor, right knee; I10 Essential (primary) hypertension; Z87.891 Personal history of nicotine dependence; Z98.890 Other specified postprocedural states; F12.90 Cannabis use, unspecified, uncomplicated
CPT/HCPCS: 46946; 88304; J0690; J2250; J2795; J3010

== ENCOUNTER → 2023-03-15 08:02 | Outpatient (BNV) | payer MEDICARE, MEDICAID, SELFPAY | PROVIDERS: PCP Physician Assistant; Visit Provider Surgery | DX: K64.8 Other hemorrhoids (principal) | CPT/HCPCS: 46255 ==

== ENCOUNTER 2023-03-22 10:39 | Outpatient (AMB) | payer MEDICARE, SELFPAY ==
--- NOTE | 2023-03-22 10:49 | MHC.OFFVIS ---
Intake Vital Signs 03/22/23 10:50 Height 6 ft 1 in Weight 270 lb BMI 35.6 BP 152/88 H Blood Pressure Location Rt brachial Position Sitting Pulse 93 Intake Visit Reasons: S/P hemorrhoidectomy Intake Note: Patient here s/o hemorrhoidectomy. Reports bleeding with BM. Stopped taking rx pain meds as it made constipation worse. Registered Diet Technician Required: No Accompanied by: Self / Same As Patient Allergies pneumococcal vaccine Allergy (Intermediate, Verified 03/22/23 10:51) Swelling methotrexate Adverse Reaction (Intermediate, Verified 03/22/23 10:51) Oral ulcers HPI HPI Comments History of Present Illness Details Patient is status post hemorrhoidectomy. Aside from incisional discomfort which is improving, he is tolerating a diet, having normal bowel habits. He is increasing his activity level. He has some discharge from his wounds but no active bleeding. [facility] Medical History Back pain COVID-19 vaccine series completed Headache HTN (hypertension) Hx of osteoarthritis Hx of varicose veins Rheumatoid arthritis Rheumatoid arthritis involving right knee Seronegative rheumatoid arthritis Sleep apnea Surgical History History of arthroplasty of right knee History of hemorrhoidectomy (03/15/23) History of Juan-en-Y gastric bypass (~04/27/16) History of total left hip arthroplasty History of total right hip arthroplasty (~04/03/17) History of total right knee replacement Hx of colonoscopy Family History Mother HTN (hypertension) Father Diabetes Paternal Aunt Bone cancer Social History Are you a primary tree care foreman to a significant other at home: No Do you presently have visiting nurse or other home services: No Alcohol intake: former Patient Tobacco Use Status: Former Tobacco user Quit Date: 1999 Years Smoked: 20 e-Cigarette/Vaping Use: Never Used Substance Use Type: Marijuana service: No Current occupational status: unemployed and disabled Cognitive needs: No Hearing needs: No Vision needs: No Physical Exam Vital Signs: Last Vital Signs Pulse 93 03/22/23 10:50 BP 152/88 H 03/22/23 10:50 BMI result Body Mass Index 35.6 GI Other: Hemorrhoidal wounds healing uneventfully. Assessment & Plan Assessment & Plan (1) Hemorrhoids: Code(s): K64.9 - Unspecified hemorrhoids Plan Patient has been given local instructions, including stool softeners, Sitz baths, and will follow-up p.r.n.. Coding Level of Care Code Global (43020) Diagnoses Hemorrhoids K64.9
[2023-03-22 10:50] VITALS: BP 152/88; PULSE 93; BMI 35.6
== END 2023-03-22 11:46 | disposition home or self-care (01) ==
PROVIDERS: PCP Physician Assistant; Visit Provider Surgery
DX: K64.9 Unspecified hemorrhoids (principal)
CPT/HCPCS: 99024

== ENCOUNTER → 2023-03-22 10:39 | Outpatient (BNVA) | payer MEDICARE, SELFPAY | PROVIDERS: PCP Physician Assistant; Visit Provider Surgery ==

== ENCOUNTER 2023-07-25 08:56 | Outpatient (AMB) | payer OTHER, SELFPAY ==
--- NOTE | 2023-07-25 09:00 | A.OFFPC_ITS ---
Vital Signs 07/25/23 09:01 Height 6 ft 1 in Weight 272 lb 2 oz BMI 35.9 BP 122/72 Blood Pressure Location Lt brachial Position Sitting Respiration 17 Pulse 80 Pulse Source Palpation Oxygen Delivery Method Room Air Intake Visit Reasons: 6mth f/u Order Management Specialist Required: No Accompanied by: Self / Same As Patient Allergies pneumococcal vaccine Allergy (Intermediate, Verified 07/25/23 09:47) Swelling methotrexate Adverse Reaction (Intermediate, Verified 07/25/23 09:47) Oral ulcers Medication List - Last Reconciled 07/25/23 by Avelino Penny PA-C acetaminophen 650 mg (2 x 325 mg) PO Q6H PRN 30 days adalimumab (Humira(CF) Pen) 40 mg (0.4 mL) subcut Q2W amlodipine 10 mg PO DAILY blood pressure test kit-large As directed furosemide 20 mg PO BID 90 days lisinopril 40 mg PO DAILY ondansetron HCl (Zofran) 4 mg PO Q4H PRN pantoprazole 20 mg PO DAILY Tobacco use date assessed: 02/16/23 Dental Screening Dental Screen Date: 07/25/23 Did you have a dental visit in the last 12 months?: Yes Did you have a dental problem in the last 6 months where you did not have access to dental care?: No Was dental information given to patient?: Patient has dentist HPI 6mth f/u HPI Details Patient is a 53 year old male here today for follow-up visit.. Patient has past medical history of significant for hypertension, severe RF neg rheumatoid arthritis, vitamin-D deficiency, hypertension, vitamin B12 deficiency. Concern--> reports having right shoulder pain and decreased range of motion. No notable injury to his left shoulder. ? . ? Hypertension: Has been checking his BP at home, has been compliant with BP medications. ? Denies any Headaches, CP, SOB. ? .. ? Arthritis: Followed by Rheum-- On humaria now and doing well. Still having hand pain though reports his global eyes pain in his larger joints are much improved since starting Humira.. Of note was unable to tolerate methotrexate due to oral ulcers. Of note he does use medicinal marijuana in conjunction for pain relief which he reports helps tremendously. . Obesity; patient is status post bariatric surgery, has noted gradual weight gain over the last several years. Today's BMI 35.9 PFSH Medical History Back pain COVID-19 vaccine series completed Headache HTN (hypertension) Hx of osteoarthritis Hx of varicose veins Rheumatoid arthritis Rheumatoid arthritis involving right knee Seronegative rheumatoid arthritis Sleep apnea Surgical History History of hemorrhoidectomy (03/15/23) Hx of colonoscopy History of total right knee replacement History of arthroplasty of right knee History of total left hip arthroplasty History of Juan-en-Y gastric bypass (~04/27/16) History of total right hip arthroplasty (~04/03/17) Family History Mother HTN (hypertension) Father Diabetes Paternal Aunt Bone cancer Social History Are you a primary resident care aid to a significant other at home: No Do you presently have visiting nurse or other home services: No Alcohol intake: former Comment: sleeping Patient Tobacco Use Status: Former Tobacco user Quit Date: 1999 Smoked: 20 e-Cigarette/Vaping Use: Never Used Substance Use Type: Marijuana service: No Current occupational status: unemployed and disabled Cognitive needs: No Hearing needs: No Vision needs: No Questionnaire Thrive Questionnaire Date Thrive assessed: 02/16/23 LUCI-7 AMB Questionnaire LUCI-7 Date LUCI - 7 assessed: 02/16/23 Source: Developed by Drs. Pascual Alegria, Brie Villalta, Orion Rea and colleagues, with an educational sara from [employer]. Review of Systems Const Denies headache(s) Eyes Denies loss of vision ENT Denies vertigo, Denies dizziness, Denies headache(s) and Denies sore throat Card Denies chest pain, Denies leg edema and Denies lightheadedness Resp Denies cough, Denies hemoptysis and Denies wheezing GI Denies abdominal pain, Denies melena, Denies constipation, Denies diarrhea and Denies vomiting Denies dysuria, Denies urinary frequency and Denies urinary urgency Musc Denies arthralgias, Denies joint swelling, Denies numbness and Denies tingling Neuro Denies Abnormal speech present, Denies behavioral changes, Denies vertigo, Denies dizziness, Denies headache(s), Denies loss of vision, Denies memory loss, Denies numbness and Denies tingling Psych Denies anxiety, Denies behavioral changes, Denies depression, Denies memory loss and Denies panic attacks Parth/Lymph Denies easy bleeding and Denies easy bruising Aller/Immun Denies wheezing Physical exam (Primary Care) Vital Signs: Last Vital Signs Pulse 80 07/25/23 09:01 Resp 17 07/25/23 09:01 BP 122/72 07/25/23 09:01 Oxygen Delivery Method Room Air 07/25/23 09:01 BMI result Body Mass Index 35.9 BMI Assessment/Plan discussion: High Tobacco/Smoking Status: Tobacco use Status Tobacco use date assessed 02/16/23 07/25/23 09:02 Patient Tobacco Use Status Former Tobacco user 07/25/23 09:02 e-Cigarette/Vaping Use Never Used 07/25/23 09:02 Thrive Assessment: Date of Thrive Assessment Date Thrive assessed 02/16/23 07/25/23 09:02 Const General: healthy appearing, no acute distress, alert and awake Nutritional Appearance: well nourished Orientation/consciousness: oriented to person, oriented to place and oriented to time HENMT Ears: TM's normal bilaterally General nose exam: Normal nasal mucous membranes and turbinates present Eyes Conjunctivae: conjunctivae normal Sclerae: sclerae normal Pupils: Equal, round and reactive pupils present Neck Neck: Yes no lymphadenopathy and Yes no JVD Thyroid: Thyroid normal Carotids: no bruits Resp Effort & Inspection: normal respiratory effort and not tachypneic Auscultation: no crackles, no rales, no rhonchi and no wheezes Cardio Rate: regular rate Rhythm: regular rhythm Heart sounds: no murmurs and normal S1 and S2 GI Palpation (GI): Soft to palpation, nontender, no hepatomegaly and no splenomegaly Auscultation: normal bowel sounds Skin General skin exam: no rashes or lesions noted and dry skin Neuro General: oriented to person, oriented to place and oriented to time Cranial nerves: Yes Equal, round and reactive pupils present Speech: No Abnormal speech present Gait exam (Neuro): Normal gait present Motor exam (neuro): no tremor noted Extrem Other: RIGHT SHOULDER: SOME LIMITED RANGE OF MOTION DUE TO PAIN AND STIFFNESS. NEGATIVE ALL KINGS, NEGATIVE EMPTY CAN TESTS. Right upper extremity: full ROM Left upper extremity: full ROM Right lower extremity: full ROM; no edema Left lower extremity: full ROM; no edema Psych Mental Status: mental status grossly normal Speech and movement: Normal speech and movement present Affect: normal affect Attitude: cooperative Thought process: Normal thought process present Assessment and Plan Assessment & Plan (1) HTN (hypertension): Code(s): I10 - Essential (primary) hypertension Qualifiers: Hypertension type: essential hypertension Qualified Code(s): I10 - Essential (primary) hypertension Plan: Blood pressure acceptable today in office. Will continue him on his current doses of blood pressure medication. Blood pressure goal is to be below 140/90. (2) Rheumatoid arthritis involving right knee: Code(s): M06.9 - Rheumatoid arthritis, unspecified Qualifiers: Rheumatoid factor presence: with rheumatoid factor Qualified Code(s): M05.761 - Rheumatoid arthritis with rheumatoid factor of right knee without organ or systems involvement Plan: Continues to follow Rheumatology, continues on Humira injections with good effect on reducing inflammation in his joints. He reports his bilateral hips and knee pains have been much improved since starting Humira injections (3) Obese: Code(s): E66.9 - Obesity, unspecified Qualifiers: Body mass index: BMI 34.0-34.9 Obesity classification: adult class 1 (BMI 30 - 34.9) Obesity type: due to excess calories Serious obesity comorbidity presence: without serious comorbidity Qualified Code(s): E66.09 - Other obesity due to excess calories; Z68.34 - Body mass index [BMI] 34.0-34.9, adult Plan: Noted weight gain over the last several years. He reports he has been trying to be more physically active in adapting to better eating habits. He does understand his BMI is over 30. (4) Right shoulder tendonitis: Code(s): M77.8 - Other enthesopathies, not elsewhere classified Plan: Reports over the last several weeks having right shoulder pain and decreased range of motion. No major trauma to his right upper extremity noted. He reports he may have over done it doing some of his woodworking. He is interested in physical therapy for right shoulder tendinitis. (5) LUCI (generalized anxiety disorder): Code(s): F41.1 - Generalized anxiety disorder Plan: Continues to suffer with anxiety and depression. He is interested in establishing care with a mental health therapist Orders: Orders XR shoulder RT 1V Today M77.8 - Other enthesopathies, not elsewhere classified PT Evaluation and Treatment Today M77.8 - Other enthesopathies, not elsewhere classified Referrals Counseling Referral F41.1 - Generalized anxiety disorder, Z13.220 - Encounter for screening for lipoid disorders Coding Level of Care Code Est Pt Level 4 (53740) Diagnoses Essential hypertension I10 Hypertension type: essential hypertension Rheumatoid arthritis involving right knee with positive rheumatoid factor M05.761 Rheumatoid factor presence: with rheumatoid factor Class 1 obesity due to excess calories without serious comorbidity with body mass index (BMI) of 34.0 to 34.9 in adult E66.09; Z68.34 Body mass index: BMI 34.0-34.9 Obesity classification: adult class 1 (BMI 30 - 34.9) Obesity type: due to excess calories Serious obesity comorbidity presence: without serious comorbidity Right shoulder tendonitis M77.8 LUCI (generalized anxiety disorder) F41.1
[2023-07-25 09:01] VITALS: BP 122/72; PULSE 80; RESP 17; BMI 35.9
== END 2023-07-25 10:06 | disposition home or self-care (01) ==
PROVIDERS: PCP Physician Assistant; Visit Provider Physician Assistant
DX: I10 Essential (primary) hypertension (principal); M05.761 Rheumatoid arthritis with rheumatoid factor of right knee without organ or systems involvement; E66.09 Other obesity due to excess calories; Z68.34 Body mass index [BMI] 34.0-34.9, adult; M77.8 Other enthesopathies, not elsewhere classified; F41.1 Generalized anxiety disorder
CPT/HCPCS: 99214

== ENCOUNTER 2023-10-01 09:00 | Outpatient (RCR) | payer OTHER, SELFPAY ==
--- NOTE | 2023-08-23 08:40 | MHC.PT.EP ---
[facility] [place] Office [place] Office [place] Office [address] Kaur [address] [phone] F: [phone] F: [phone] F: [phone] F: [phone] Physical Therapy Plan of Care Date of Evaluation: 08/23/23 Date of Surgery: n/a Diagnosis: R shoulder tendonitis Assessment: Patient is a 53 year old male presenting to PT with complaints of pain in his R shoulder. Pt reports onset of pain began about 5 months ago due to feeling pain after a hand shake. He presents today with impairments in pain, shoulder ROM, shoulder strength, posture. Pt's current occupation is none, with baseline physical activities including reaching, lifting, ADLs. 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 Clinical presentation today is most consistent with signs and sx associated with R shoulder pain and pt will benefit from skilled PT 2 week x 4 weeks to address the following problems and impairments noted upon evaluation: pain, shoulder ROM, shoulder strength, posture. These problems limit the patient with the following functional activities: reaching, lifting, ADLs. The prescribed treatment plan of care is medically necessary. Co-morbidities of HTN, RA were identified and taken into considerations of plan of care. Pt was educated on HEP, role of PT, prognosis, POC. Frequency and Duration: The patient will be seen 2 x week x 4 weeks Short Term Goals: Pt will demonstrate equal ROM B in 2 weeks. Pt will demonstrate improved R shoulder MMT strength by 1/3 grade in 2 weeks. Pt will demonstrate improved postural awareness by sitting with biomechanically correct posture without cues throughout session to improve overall postural function in 2 weeks. Vendor Specialist Goals: Pt will demonstrate improved LEFI score by 13 points in 4 weeks for improved functional mobility. Pt will demonstrate ability to reach with min to no pain in 4 weeks for improved ability to dress. Pt will demonstrate ability to lift with min to no pain in 4 weeks for improved ability to complete claim specialist. Treatment Plan: Modalities to reduce pain, spasms and effusion. Manual therapy to restore motion and function. Therapeutic exercise to improve strength and flexibility. Neuromuscular re-education for posture and balance. Therapeutic activities to return to functional activities of daily living. Electronically signed by: Lizy Morillo, PT, DPT, ATC Please sign and return to therapist. Thank you for your referral.
--- NOTE | 2023-10-31 13:20 | MHC.PT.DC ---
[facility] [place] Office [place] Office [place] Office [address]aur [address] [facility] [phone] F: [phone] F: [phone] F: [phone] F: [phone] Physical Therapy Discharge Report Diagnosis: R shoulder tendonitis Date of Surgery: n/a Date of Evaluation: 08/23/23 Date of Discharge: 10/31/23 Treatments to Date: 5 Cancellations to Date: 7 No Shows to Date: 0 Discharge Status: Independent with HEP Discharge Summary: Pt has not attended skilled PT in >30 days and therefore to be d/c. Electronically signed by: Lizy Morillo, PT, DPT, ATC Please sign and return to therapist. Thank you for your referral.
== END 2023-10-31 13:20 | disposition home or self-care (01) ==
LOC: HO.PTCHIC 09:00
PROVIDERS: PCP Physician Assistant; Visit Provider Physician Assistant
DX: M77.8 Other enthesopathies, not elsewhere classified (principal)
CPT/HCPCS: 97110; 97161

== ENCOUNTER 2024-01-24 08:47 | Outpatient (AMB) | payer OTHER, SELFPAY ==
[2024-01-24 09:14] VITALS: BP 110/64; PULSE 96; O2SAT 96; BMI 34.2
--- NOTE | 2024-01-24 09:14 | A.OFFPC_ITS ---
Vital Signs 01/24/24 09:14 Height 6 ft 1 in Weight 259 lb 6 oz BMI 34.2 BP 110/64 Blood Pressure Location Lt brachial Position Sitting Pulse 96 Pulse Source Pulse Oximeter Pulse Oximetry (%) 96 Oxygen Delivery Method Room Air Intake Visit Reasons: pe Intake Note: Patient is here today for a physical. Pbx Inspector Required: No Accompanied by: Self / Same As Patient Allergies pneumococcal vaccine Allergy (Intermediate, Verified 01/24/24 09:25) Swelling methotrexate Adverse Reaction (Intermediate, Verified 01/24/24 09:25) Oral ulcers Medication List - Last Reconciled 01/24/24 by Avelino Penny PA-C adalimumab (Humira(CF) Pen) 40 mg (0.4 mL) subcut Q2W amlodipine 10 mg PO DAILY blood pressure test kit-large As directed furosemide 20 mg PO BID 90 days lisinopril 40 mg PO DAILY pantoprazole 20 mg PO DAILY Tobacco use date assessed: 01/24/24 Dental Screening Dental Screen Date: 01/24/24 Did you have a dental visit in the last 12 months?: Yes Did you have a dental problem in the last 6 months where you did not have access to dental care?: No Was dental information given to patient?: Patient has dentist HPI pe HPI Details Patient is a 53 year old male here today for an annual physical. Patient has past medical history of significant for hypertension, severe RF neg rheumatoid arthritis, vitamin-D deficiency, hypertension, vitamin B12 deficiency. Concern-->. ? . ? Hypertension: Has been checking his BP at home, has been compliant with BP medications. ? Denies any Headaches, CP, SOB. ? .. ? Arthritis: Followed by Rheum-- On humaria now and doing well. Still having hand pain though reports his global eyes pain in his larger joints are much improved since starting Humira.. Of note was unable to tolerate methotrexate due to oral ulcers. Of note he does use medicinal marijuana in conjunction for pain relief which he reports helps tremendously. . Obesity; patient is status post bariatric surgery, has noted gradual weight loss over the past several weeks due to being more active now has a part-time job.. Today's BMI 34 VAccine : UTD with COVID Vac , UTD with Tdap and PCV. ..Colonoscopy:? Colonoscopy done in of 2020 polyp found tubular repeat 3- 5 years. [facility] Medical History Back pain COVID-19 vaccine series completed Seronegative rheumatoid arthritis Hx of osteoarthritis Sleep apnea Hx of varicose veins Rheumatoid arthritis involving right knee Rheumatoid arthritis Headache HTN (hypertension) Surgical History History of hemorrhoidectomy (03/15/23) Hx of colonoscopy History of total right knee replacement History of arthroplasty of right knee History of total left hip arthroplasty History of Juan-en-Y gastric bypass (~04/27/16) History of total right hip arthroplasty (~04/03/17) Family History Mother HTN (hypertension) Father Diabetes Paternal Aunt Bone cancer Social History Housing: House Are you a primary manager of care to a significant other at home: No Do you presently have visiting nurse or other home services: No Alcohol intake: former Comment: sleeping Patient Tobacco Use Status: Former Tobacco user Years Smoked: 20 e-Cigarette/Vaping Use: Never Used Substance Use Type: Marijuana service: No Current occupational status: unemployed and disabled Cognitive needs: No Hearing needs: No Vision needs: No Questionnaire PHQ-9 Over the last 2 weeks, how often have you been bothered by any of the following problems? 1. Little interest or pleasure in doing things: not at all 2. Feeling down, depressed, or hopeless: not at all 3. Trouble falling or staying asleep, or sleeping too much: not at all 4. Feeling tired or having little energy: not at all 5. Poor appetite or overeating: not at all 6. Feeling bad about yourself - or that you are a failure or have let yourself or your family down: not at all 7. Trouble concentrating on things, such as reading the newspaper or watching television: not at all 8. Moving or speaking so slowly that other people could have noticed. Or the opposite - being so fidgety or restless that you have been moving around a lot more than usual: not at all 9. Thoughts that you would be better off or of hurting yourself in some way: not at all Total score: 0 Depression Screening Interpretation: Negative Depression Screening Done: Yes 01347 - PHQ-9 Billing: Yes Source: Developed by Drs. Pascual Alegria, Brie Villalta, Orion Rea and colleagues, with an educational sara from [employer]. Thrive Questionnaire Date Thrive assessed: 01/24/24 I am a: Patient What is your living situation today?: I have a steady place to live Within the past 12 months, did the food you bought not last and you didn't have the money to get more?: Never true Within the past 12 months, did you worry whether your food would run out before you got money to buy more?: Never true Do you have trouble paying for medicines?: No Do you have trouble getting transportation to medical appointments?: No Do you have trouble paying your heating and electricity bill?: No Do you have trouble taking care of your child, family member or friend?: No Do you have trouble with day-to-day activities such as bathing, preparing meals, shopping, managing finances, etc.?: No Are you currently unemployed and looking for a job?: No Are you interested in more education?: No Please select the resources that you would like help with: None Currently or been in a relationship where the following occur: no concerns reported THRIVE Score: 0 AUDIT C Alcohol Use Questionnaire (AUDIT-C) 1. How often do you have a drink containing alcohol?: Never 3. How often do you have six or more drinks on one occasion?: Never Total Score: 0 LUCI-7 AMB Questionnaire LUCI-7 Date LUCI - 7 assessed: 01/24/24 Feeling nervous, anxious, or on edge: 0 = Not at all Not being able to stop or control worryin = Not at all Worrying too much about different things: 0 = Not at all Trouble relaxin = Not at all Being so restless that it is hard to sit still: 0 = Not at all Becoming easily annoyed or irritable: 0 = Not at all Feeling afraid as if something awful might happen: 0 = Not at all Total LUCI-7 score (0-4 normal; 5-9 mild; 10-14 moderate; 15-21 severe): 0 Source: Developed by Drs. Pascual Alegria, Brie Villalta, Orion Rea and colleagues, with an educational sara from [employer]. LUCI-7 Assessment Billing LUCI-7 Assessment Tool: LUCI-7 Assessment 86778 Review of Systems Const Denies body aches, Denies chills, Denies excessive sweating, Denies fatigue, Denies fever(s) and Denies headache(s) Eyes Denies blurry vision ENT Denies dysphagia, Denies vertigo, Denies dizziness, Denies headache(s), Denies hearing loss and Denies tinnitus Card Denies chest pain, Denies chest pain with activity, Denies syncope, Denies irregular heart rhythm and Denies dyspnea Resp Denies chest congestion, Denies cough, Denies hemoptysis, Denies dyspnea and Denies wheezing GI Denies abdominal pain, Denies melena, Denies hematochezia, Denies coffee ground emesis, Denies dysphagia, Denies diarrhea, Denies nausea and Denies vomiting Denies difficulty urinating, Denies dysuria, Denies urinary frequency, Denies urinary hesitancy and Denies urinary urgency Musc Denies arthralgias, Denies limited range of motion, Denies muscle cramps and Denies muscle weakness Skin/Breast Denies rash and Denies skin ulcer Neuro Denies Abnormal speech present, Denies confusion, Denies vertigo, Denies dizziness, Denies syncope, Denies headache(s), Denies memory loss and Denies seizure-like activity Psych Denies anxiety, Denies confusion, Denies depression, Denies memory loss, Denies panic attacks and Denies paranoia Endo Denies excessive sweating, Denies fatigue, Denies flushing, Denies polydipsia and Denies polyuria Aller/Immun Denies wheezing Physical exam (Primary Care) Vital Signs: Last Vital Signs Pulse 96 01/24/24 09:14 BP 110/64 01/24/24 09:14 Pulse Ox 96 01/24/24 09:14 Oxygen Delivery Method Room Air 01/24/24 09:14 BMI result Body Mass Index 34.2 Tobacco/Smoking Status: Tobacco use Status Tobacco use date assessed 01/24/24 01/24/24 09:21 Patient Tobacco Use Status Former Tobacco user 01/24/24 09:14 e-Cigarette/Vaping Use Never Used 01/24/24 09:14 PHQ-9: PHQ-9 Score PHQ-9: Total score 0 01/24/24 09:27 Depression Screening Interpretation: Negative Thrive Assessment: Date of Thrive Assessment Date Thrive assessed 01/24/24 01/24/24 09:21 Currently or been in a relationship where the following occur: no concerns reported Const General: cooperative, comfortable, no acute distress, alert and awake; No confusion Orientation/consciousness: oriented to person, oriented to place, patient oriented x3 and No confusion HENMT Head: Yes normocephalic Ears: external ears normal and TM's normal bilaterally Face and sinus: No sinus tenderness Mouth: Normal oral and palatal mucosa present and tongue normal Teeth and gingiva: dentition normal and gingiva normal Throat: Yes posterior oropharynx normal, Yes tonsils normal and Yes uvula midline Eyes Conjunctivae: conjunctivae normal Sclerae: sclerae normal Pupils: Equal, round and reactive pupils present EOM: EOMs intact bilaterally Direct Ophthalmoscopy: No no photophobia Neck Neck: Yes no lymphadenopathy, No tender and Yes no JVD Thyroid: Thyroid normal Carotids: no bruits Chest Chest palpation & inspection: no tenderness Resp Effort & Inspection: normal respiratory effort, no audible wheezes, not labored and no stridor Auscultation: no crackles, no rales, no rhonchi and no wheezes Cardio Jugular venous distension: no JVD Rate: regular rate, not bradycardic and not tachycardic Rhythm: regular rhythm Bruits: no carotid bruits Peripheral pulses: Peripheral pulses 2+ throughout GI Inspection: Yes normal to inspection, No abdominal wall ecchymosis and No visible herniation Palpation (GI): Soft to palpation, nontender, no guarding, not rigid and No hepatosplenomegaly present Auscultation: normoactive bowel sounds General: Yes no CVA tenderness Back/Spine/Pelvis Back: no CVA tenderness and No back tenderness Cervical Spine: cervical ROM normal Thoracic/Lumbar Spine: thoracic and lumbar spine normal to inspection, straight leg raise negative bilaterally, No thoraco-lumbar ROM limited and No lumbar spinal tenderness Skin Lesions: no lesions Rashes: no rashes Wounds: no wounds Neuro General: oriented to person, oriented to place, patient oriented x3, CN's II-XI intact bilaterally and No confusion Cranial nerves: Yes Equal, round and reactive pupils present and Yes Normal accommodation reflex present Cognition (Neuro): normal cognition Speech: No Abnormal speech present Gait exam (Neuro): Normal gait present Motor exam (neuro): 5/5 motor strength present throughout Extrem Right upper extremity: full ROM; no cyanosis Left upper extremity: full ROM; no cyanosis Right lower extremity: no edema Left lower extremity: no edema Psych Appearance: grossly normal Mental Status: mental status grossly normal Affect: normal affect Attitude: cooperative Thought process: Normal thought process present Assessment and Plan Assessment & Plan (1) Annual physical exam: Code(s): Z00.00 - Encounter for general adult medical examination without abnormal findings (2) HTN (hypertension): Code(s): I10 - Essential (primary) hypertension Qualifiers: Hypertension type: essential hypertension Qualified Code(s): I10 - Essential (primary) hypertension Plan: Blood pressure acceptable today in office. Will continue him on his current doses of blood pressure medication. Blood pressure goal is to be below 140/90. (3) Obese: Code(s): E66.9 - Obesity, unspecified Qualifiers: Body mass index: BMI 34.0-34.9 Obesity classification: adult class 1 (BMI 30 - 34.9) Obesity type: due to excess calories Serious obesity comorbidity presence: without serious comorbidity Qualified Code(s): E66.09 - Other obesity due to excess calories; Z68.34 - Body mass index [BMI] 34.0-34.9, adult Plan: Noted some weight loss over last few months due to be more physically active and now has a part-time job. He reports he has been trying to be more physically active in adapting to better eating habits. He does understand his BMI is over 30. (4) LUCI (generalized anxiety disorder): Code(s): F41.1 - Generalized anxiety disorder Plan: Continues to suffer with anxiety and depression. (5) Tubular adenoma: Comment: Adenomas, repeat colonoscopy 3 year First-degree relatives begin screening at age 40 Code(s): D36.9 - Benign neoplasm, unspecified site (6) Seronegative rheumatoid arthritis: Comment: Methotrexate: discontinued due to oral ulcers Humira: November 2020- Present Code(s): M06.00 - Rheumatoid arthritis without rheumatoid factor, unspecified site Plan: Patient continues on Humira with good effect on reducing his polyarthralgia. Still does have some breakthrough hand and wrist pain. 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 Will place referral for 2nd opinion and establish care Orders: Orders Comprehensive [place]. Panel Fast 01/24/24 I10 - Essential (primary) hypertension Complete Blood Count no Diff 01/24/24 I10 - Essential (primary) hypertension Microalbumin, Random (w Creat) 01/24/24 I10 - Essential (primary) hypertension Prostate Specific Antigen Scr 01/24/24 I10 - Essential (primary) hypertension, Z12.5 - Encounter for screening for malignant neoplasm of prostate Lipid Panel 01/24/24 E78.9 - Disorder of lipoprotein metabolism, unspecified Referrals Gastroenterology Referral D36.9 - Benign neoplasm, unspecified site Rheumatology Referral M06.00 - Rheumatoid arthritis without rheumatoid factor, unspecified site Medications: New acetaminophen ER (Tylenol Arthritis Pain) 650 mg PO Q12H 60 tabs 6RF 30 days M17.11 - Unilateral primary osteoarthritis, right knee, M19.90 - Unspecified osteoarthritis, unspecified site Patient Instructions: Goal: Blood pressure to remain below 140/90 Barrier: Adherence to physical activity and healthy eating habits Coding Level of Care Code Est Pt Prev Care 40-64y(71587) Diagnoses Annual physical exam Z00.00 Essential hypertension I10 Hypertension type: essential hypertension Class 1 obesity due to excess calories without serious comorbidity with body mass index (BMI) of 34.0 to 34.9 in adult E66.09; Z68.34 Body mass index: BMI 34.0-34.9 Obesity classification: adult class 1 (BMI 30 - 34.9) Obesity type: due to excess calories Serious obesity comorbidity presence: without serious comorbidity LUCI (generalized anxiety disorder) F41.1 Tubular adenoma D36.9 Seronegative rheumatoid arthritis M06.00 Additional Codes LUCI-7 Assessment Billing - LUCI-7 Assessment Tool: LUCI-7 Assessment [id number] ([id number])
== END 2024-01-24 09:44 | disposition home or self-care (01) ==
PROVIDERS: PCP Physician Assistant; Visit Provider Physician Assistant
DX: Z00.00 Encounter for general adult medical examination without abnormal findings (principal); I10 Essential (primary) hypertension; E66.09 Other obesity due to excess calories; Z68.34 Body mass index [BMI] 34.0-34.9, adult; F41.1 Generalized anxiety disorder; D36.9 Benign neoplasm, unspecified site
CPT/HCPCS: 99396

== ENCOUNTER 2024-01-31 09:31 | Outpatient (AMB) | payer OTHER, SELFPAY ==
--- NOTE | 2024-01-31 09:35 | A.OFFVIS_ITS ---
Vital Signs 01/31/24 09:38 Height 6 ft 1 in Weight 260 lb 5.855 oz BMI 34.3 BP 112/60 Blood Pressure Location Rt brachial Position Sitting Pulse 82 Pulse Source Pulse Oximeter Pulse Oximetry (%) 96 Oxygen Delivery Method Room Air Intake Visit Reasons: RA Intake Note: Patient presents for RA. Both hands are getting more stiffer. Allergies pneumococcal vaccine Allergy (Intermediate, Verified 01/31/24 09:44) Swelling methotrexate Adverse Reaction (Intermediate, Verified 01/31/24 09:44) Oral ulcers Medication List - Last Reconciled 01/31/24 by Chris Albarran MD acetaminophen ER (Tylenol Arthritis Pain) 650 mg PO Q12H 30 days adalimumab (Humira(CF) Pen) 40 mg (0.4 mL) subcut Q2W amlodipine 10 mg PO DAILY blood pressure test kit-large As directed furosemide 20 mg PO BID 90 days lisinopril 40 mg PO DAILY pantoprazole 20 mg PO DAILY HPI Comments Details: This is a 53-year-old male with seronegative RA who presents for follow-up. he was last seen by Radha Bell 12/2022 On Humira 40 mg every other week. Well-tolerated. States that he is doing reasonably well overall. He gets intermittent achiness and tightness across his PIP is especially when making a fist. Did not notice any significant swelling. He does not have any more knee swelling. Intermittent pain in his lower back. He takes Tylenol as needed for his pains does take the edge off. He also uses marijuana at night and it helps take the edge off. 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 Medical History (Updated 01/31/24 @ 10:09 by Chris Albarran MD) Back pain COVID-19 vaccine series completed Seronegative rheumatoid arthritis Hx of osteoarthritis Sleep apnea Hx of varicose veins Headache HTN (hypertension) Surgical History History of hemorrhoidectomy (03/15/23) Hx of colonoscopy History of total right knee replacement History of arthroplasty of right knee History of total left hip arthroplasty History of Juan-en-Y gastric bypass (~04/27/16) History of total right hip arthroplasty (~04/03/17) Family History Mother HTN (hypertension) Father Diabetes Paternal Aunt Bone cancer Social History Housing: House Are you a primary healthcare science specialist to a significant other at home: No Do you presently have visiting nurse or other home services: No Alcohol intake: former Comment: sleeping Patient Tobacco Use Status: Former Tobacco user Years Smoked: 20 e-Cigarette/Vaping Use: Never Used Substance Use Type: Marijuana service: No Current occupational status: unemployed and disabled Cognitive needs: No Hearing needs: No Vision needs: No Review of Systems Musc Reports back pain, Reports arthralgias and Reports stiffness Physical Exam Vital Signs: Last Vital Signs Pulse 82 01/31/24 09:38 BP 112/60 01/31/24 09:38 Pulse Ox 96 01/31/24 09:38 Oxygen Delivery Method Room Air 01/31/24 09:38 BMI result Body Mass Index 34.3 Const General: cooperative, healthy appearing and comfortable Nutritional Appearance: obese Orientation/consciousness: patient oriented x3 Limitations: no limitations HEENT Head: Yes normocephalic and Yes atraumatic Resp Effort & Inspection: normal respiratory effort and able to speak in complete sentences Auscultation: clear to auscultation bilaterally Cardio Rate: regular rate Rhythm: regular rhythm Neuro General: patient oriented x3 Extrem Other: No wrist swelling or tenderness bilaterally or pain with flexion and extension No MCP swelling or tenderness bilaterally Minimal right 3rd PIP enlargement and minimal ulnar deviation (patient states that he broke it years ago) Right 3rd flexor tendon tenderness PIP achiness with bilateral hand 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 COMPARISON: Radiographs dated 06/11/2020.? TECHNIQUE: PA, lateral, and oblique views of the right hand. FINDINGS: Bony alignment and mineralization are normal. There is mild peripheral osteophyte formation of the interphalangeal joint of the thumb and of the third distal interphalangeal joint. A benign sclerotic bone island is redemonstrated of the middle phalanx of the second finger. There is stable deformity of the third proximal phalangeal and metacarpal head is, which may be posttraumatic. No definite erosion is presently seen. The proximal and distal carpal rows are intact. The soft tissue planes are unremarkable. XR/XR hand LT min 3V IMPRESSION: There is mild osteoarthritic change of the first interphalangeal joint and the third distal interphalangeal joint. There are stable deformities of the heads of the third proximal phalanx and metacarpal bone. No definite erosion is presently seen. There is no fracture or dislocation. ? ? EXAMINATION: XR HAND, LEFT ? CLINICAL INFORMATION: Rheumatoid arthritis.? ? COMPARISON: Radiographs dated 06/11/2020.? ? TECHNIQUE: PA, lateral, and oblique views of the left hand. ? FINDINGS: Bony alignment and mineralization are normal. There is a slight ulnar minus variance. There is mild peripheral osteophyte formation of the third and fourth metacarpophalangeal joints and of the first carpometacarpal joint. No fracture or dislocation is seen. There is no definite bone erosion. A sclerotic bone island is redemonstrated of the fourth middle phalanx. The proximal and distal carpal rows are intact. The soft tissue planes are unremarkable. ? IMPRESSION: There is mild osteoarthritic change of the third and fourth metacarpophalangeal joints and of the first carpometacarpal joint. No definite bone erosion is seen. There is no fracture or dislocation. Assessment & Plan Assessment & Plan (1) Seronegative rheumatoid arthritis: Comment: -ve RF -ve CCP dx 2017 MTX discontinued due to oral ulcers Humira: November 2020- Present effective Code(s): M06.00 - Rheumatoid arthritis without rheumatoid factor, unspecified site Category: Medical Plan: This is a 53-year-old male with seronegative RA who presents for follow-up. On Humira 40 mg every other week. Doing quite well overall. Gets intermittent aching pain in his PIP which is OA versus RA. Will check RA disease activity labs. Check bilateral hand x-rays Continue with Humira 40 mg every other week Labs before next visit in 6 months (2) Back pain: Code(s): M54.9 - Dorsalgia, unspecified Category: Medical Qualifiers: Back pain location: low back pain Chronicity: chronic Back pain laterality: midline Sciatica presence: without sciatica Qualified Code(s): M54.50 - Low back pain, unspecified; G89.29 - Other chronic pain Plan: Nonradiating. Likely due to degenerative disc disease. Patient not interested in PT. Symptoms minimal and controlled with Tylenol Plan I spent 30 minutes reviewing patient's chart, evaluating patient, ordering diagnostic workup, counseling patient and documenting in the chart Orders: Orders C Reactive Protein Today M06.00 - Rheumatoid arthritis without rheumatoid factor, unspecified site Erythrocyte Sedimentation Rate Today M06.00 - Rheumatoid arthritis without rheumatoid factor, unspecified site Hepatitis A,B,C Profile Today Z11.59 - Encounter for screening for other viral diseases T Spot TB Today Z11.7 - Encounter for testing for latent tuberculosis infection Complete Blood Count Auto Diff Today M06.00 - Rheumatoid arthritis without rheumatoid factor, unspecified site Comprehensive Met. Panel Today M06.00 - Rheumatoid arthritis without rheumatoid factor, unspecified site XR hand wrist LT Today M06.00 - Rheumatoid arthritis without rheumatoid factor, unspecified site XR hand wrist RT Today M06.00 - Rheumatoid arthritis without rheumatoid factor, unspecified site Coding Level of Care Code Est Pt Level 4 (44704) Diagnoses Seronegative rheumatoid arthritis M06.00 Chronic midline low back pain without sciatica M54.50; G89.29 Back pain location: low back pain Chronicity: chronic Back pain laterality: midline Sciatica presence: without sciatica
[2024-01-31 09:38] VITALS: BP 112/60; PULSE 82; O2SAT 96; BMI 34.3
== END 2024-01-31 10:05 | disposition home or self-care (01) ==
PROVIDERS: PCP Physician Assistant; Visit Provider Student in an Organized Health Care Education/Training Program
DX: M06.00 Rheumatoid arthritis without rheumatoid factor, unspecified site (principal); M54.50 Low back pain, unspecified; G89.29 Other chronic pain
CPT/HCPCS: 99214

== ENCOUNTER → 2024-01-31 09:31 | Outpatient (BNVA) | payer OTHER, SELFPAY | PROVIDERS: PCP Physician Assistant; Visit Provider Student in an Organized Health Care Education/Training Program | DX: M06.00 Rheumatoid arthritis without rheumatoid factor, unspecified site (principal); M54.50 Low back pain, unspecified; G89.29 Other chronic pain; Z79.620 Long term (current) use of immunosuppressive biologic | CPT/HCPCS: 99212 ==

== ENCOUNTER 2024-07-21 10:55 | Outpatient (REF) | payer OTHER, SELFPAY ==
[2024-07-21 13:34] LABS: MANUAL DIFF FLAG NO
[2024-07-21 13:46] LABS: Basophils Absolute Auto 0.1 X10*3/uL (0.0-0.2); Basophils Percent Auto 0.8 % (0-2); Eosinophils Absolute Auto 0.1 X10*3/uL (0.0-0.4); Eosinophils Percent Auto 1.7 % (0-4); Hematocrit 41.7 % (42.0-52.0); Hemoglobin 13.4 g/dl (14.0-18.0); Imm Gran Abs Auto 0.02 X10*3/uL (0.00-0.03); Imm Gran Pct Auto 0.3 % (0.0-0.4); Lymphocytes Absolute Auto 3.4 X10*3/uL (1.2-4.9); Lymphocytes Percent Auto 50.5 % (20-40); Mean Corpuscular HGB Conc 32.1 g/dl (31.0-36.0); Mean Corpuscular Hemoglobin 27.6 pg (27.0-33.0); Mean Corpuscular Volume 85.8 fL (80.0-98.0); Mean Platelet Volume 10.3 fL (9.4-12.4); Monocytes Absolute Auto 0.5 X10*3/uL (0.1-1.2); Monocytes Percent Auto 6.9 % (2-11); Neutrophils Absolute Auto 2.6 x10*3/uL (2.0-8.3); Neutrophils Percent Auto 39.8 % (45-73); Platelet Count 245 X10*3/uL (160-400); Red Blood Count 4.86 X10*6/uL (4.60-5.80); Red Cell Distribution Width 13.8 % (11.0-16.0); White Blood Count 6.6 X10*3/uL (4.8-10.8)
[2024-07-21 14:18] LABS: Alanine Aminotransferase 31 U/L (0-40); Albumin Level 4.6 g/dL (3.5-5.0); Alkaline Phosphatase 84 U/L (39-117); Anion Gap 9 (12-20); Aspartate Amino Transferase 30 U/L (5-37); Bilirubin Total 0.7 mg/dL (0.0-1.0); Blood Urea Nitrogen 12 mg/dL (9-16); C Reactive Protein < 0.10 mg/dL (< or = 0.50); Calcium 8.9 mg/dL (8.4-10.2); Carbon Dioxide 33 mmol/L (22-29); Chloride 103 mmol/L (96-108); Estimated Glomerular Filt Rate > 60; Glucose Random 74 mg/dL (60-115); Sodium 141 mmol/L (135-145); Total Protein 7.3 g/dL (6.5-8.0)
[2024-07-21 14:30] LABS: Erythrocyte Sedimentation Rate 2 MM/HR (0-15)
[2024-07-22 08:23] LABS: HBS Num1 0.99 mIU/mL (0-7.99); HBc Num1 0.12 S/CO (0.00-0.79); HBsAGNum1 0.42 S/CO (0.00-0.99); Hepatitis A Antibody IgM 0.14 Index (0-0.79); Hepatitis B Core Antibody Nonreactive (Nonreactive); Hepatitis B Surface Antigen Negative (Negative); ~HepC Num1 0.08 S/CO (0.00-0.79); ~Hepatitis A Antibody IgM Nonreactive (Nonreactive); ~Hepatitis B Surface Antibody NONREACTIVE (Nonreactive); ~Hepatitis C Antibody Nonreactive (Nonreactive)
[2024-07-24 04:43] LABS: TS Negative Control Passed; TS Panel A 1; TS Panel B 0; TS Positive Control Passed; TSpotTB Negative (Negative)
== END 2024-07-21 10:56 | disposition home or self-care (01) ==
LOC: HO.HMGCX 10:55
PROVIDERS: PCP Physician Assistant; Visit Provider Student in an Organized Health Care Education/Training Program
DX: M06.00 Rheumatoid arthritis without rheumatoid factor, unspecified site (principal); Z11.59 Encounter for screening for other viral diseases; Z11.7 Encounter for testing for latent tuberculosis infection
CPT/HCPCS: 36415; 73110; 73130; 80053; 85025; 85652; 86140; 86481; 86704; 86706; 86709; 86803; 87340

== ENCOUNTER 2024-07-23 09:53 | Outpatient (AMB) | payer OTHER, SELFPAY ==
--- NOTE | 2024-07-23 09:58 | MHC.OFFVIS ---
Vital Signs 07/23/24 10:03 Height 6 ft 1 in Weight 235 lb 14.314 oz BMI 31.1 BP 124/70 Blood Pressure Location Lt brachial Position Sitting Respiration 17 Pulse 80 Pulse Source Pulse Oximeter Pulse Oximetry (%) 97 Oxygen Delivery Method Room Air Intake Visit Reasons: RA Intake Note: Patient presents for RA. Allergies pneumococcal vaccine Allergy (Intermediate, Verified 07/23/24 10:02) Swelling methotrexate Adverse Reaction (Intermediate, Verified 07/23/24 10:02) Oral ulcers Medication List - Last Reconciled 07/23/24 by Chris Albarran MD acetaminophen ER (Tylenol Arthritis Pain) 650 mg PO Q12H 30 days adalimumab (Humira(CF) Pen) 40 mg (0.4 mL) subcut Q2W amlodipine 10 mg PO DAILY blood pressure test kit-large As directed furosemide 20 mg PO BID 90 days lisinopril 40 mg PO DAILY pantoprazole 20 mg PO DAILY HPI Comments Details: This is a 54-year-old male with seronegative RA who presents for follow-up. On Humira 40 mg every other week. Well-tolerated. States that he is doing reasonably well overall. He gets intermittent achiness and tightness across his PIP is especially when making a fist. Sometimes at the right ulnar styloid, Did not notice any significant swelling. Uses Voltaren gel with inconsistent relief. [facility] Medical History Back pain COVID-19 vaccine series completed Seronegative rheumatoid arthritis Hx of osteoarthritis Sleep apnea Hx of varicose veins Headache HTN (hypertension) Surgical History History of hemorrhoidectomy (03/15/23) Hx of colonoscopy History of total right knee replacement History of arthroplasty of right knee History of total left hip arthroplasty History of Juan-en-Y gastric bypass (~04/27/16) History of total right hip arthroplasty (~04/03/17) Family History Mother HTN (hypertension) Father Diabetes Paternal Aunt Bone cancer Social History Housing: House Are you a primary resident care aid to a significant other at home: No Do you presently have visiting nurse or other home services: No Alcohol intake: former Comment: sleeping Patient Tobacco Use Status: Former Tobacco user Years Smoked: 20 e-Cigarette/Vaping Use: Never Used Substance Use Type: Marijuana service: No Current occupational status: employed and disabled Cognitive needs: No Hearing needs: No Vision needs: No Review of Systems [facility] [place]ralgias and Reports stiffness Physical Exam Vital Signs: Last Vital Signs Pulse 80 07/23/24 10:03 Resp 17 07/23/24 10:03 BP 124/70 07/23/24 10:03 Pulse Ox 97 07/23/24 10:03 Oxygen Delivery Method Room Air 07/23/24 10:03 BMI result Body Mass Index 31.1 Const General: cooperative, healthy appearing and comfortable Nutritional Appearance: obese Orientation/consciousness: patient oriented x3 Limitations: no limitations HEENT Head: Yes normocephalic and Yes atraumatic Resp Effort & Inspection: normal respiratory effort and able to speak in complete sentences Auscultation: clear to auscultation bilaterally Cardio Rate: regular rate Rhythm: regular rhythm Neuro General: patient oriented x3 Extrem Other: No wrist swelling or tenderness bilaterally or pain with flexion and extension No MCP swelling or tenderness bilaterally Minimal right 3rd PIP enlargement and minimal ulnar deviation (patient states that he broke it years ago) PIP achiness with bilateral hand shooter helper Bilateral normal hand shooter helper strength Normal range of motion of shoulders without pain Negative straight leg raise test bilaterally No ankle swelling or tenderness bilaterally Assessment & Plan Assessment & Plan (1) Seronegative rheumatoid arthritis: Comment: -ve RF -ve CCP dx 2018 MTX discontinued due to oral ulcers Humira: November 2020- Present effective Code(s): M06.00 - Rheumatoid arthritis without rheumatoid factor, unspecified site Category: Medical Plan: This is a 54-year-old male with seronegative RA who presents for follow-up. On Humira 40 mg every other week. Doing quite well overall. Gets intermittent aching pain in his PIP which is likely to be osteoarthritis rather than active rheumatoid arthritis. Inflammatory markers are normal. Continue with Humira 40 mg every other week Labs before next visit in 6 months (2) High risk medication use: Code(s): Z79.899 - Other [facility] (current) drug therapy Category: Medical (3) Immunization counseling: Code(s): Z71.85 - Encounter for immunization safety counseling Category: Medical Plan: Received both flu and COVID booster this season Plan I spent 20 minutes reviewing patient's chart, evaluating patient, ordering diagnostic workup, counseling patient and documenting in the chart Orders: Orders Complete Blood Count Auto Diff 6 Months M06.00 - Rheumatoid arthritis without rheumatoid factor, unspecified site Comprehensive Met. Panel 6 Months M06.00 - Rheumatoid arthritis without rheumatoid factor, unspecified site C Reactive Protein 6 Months M06.00 - Rheumatoid arthritis without rheumatoid factor, unspecified site Erythrocyte Sedimentation Rate 6 Months M06.00 - Rheumatoid arthritis without rheumatoid factor, unspecified site Medications: Refilled adalimumab (Humira(CF) Pen) 40 mg (0.4 mL) subcut Q2W 2 ea 5RF M06.00 - Rheumatoid arthritis without rheumatoid factor, unspecified site Coding Level of Care Code Est Pt Level 4 (89012) Complex EM visit Add On G2211 Diagnoses Seronegative rheumatoid arthritis M06.00 High risk medication use Z79.899 Immunization counseling Z71.85
[2024-07-23 10:03] VITALS: BP 124/70; PULSE 80; RESP 17; O2SAT 97; BMI 31.1
== END 2024-07-23 10:23 | disposition home or self-care (01) ==
PROVIDERS: PCP Physician Assistant; Visit Provider Student in an Organized Health Care Education/Training Program
DX: M06.00 Rheumatoid arthritis without rheumatoid factor, unspecified site (principal); Z79.899 Other long term (current) drug therapy; Z71.85 Encounter for immunization safety counseling
CPT/HCPCS: 99214; G2211

== ENCOUNTER → 2024-07-23 09:53 | Outpatient (BNVA) | payer OTHER, SELFPAY | PROVIDERS: PCP Physician Assistant; Visit Provider Student in an Organized Health Care Education/Training Program | DX: M06.09 Rheumatoid arthritis without rheumatoid factor, multiple sites (principal); Z71.85 Encounter for immunization safety counseling; Z79.899 Other long term (current) drug therapy | CPT/HCPCS: 99212 ==

== ENCOUNTER 2025-01-13 07:32 | Outpatient (REF) | payer OTHER, SELFPAY ==
--- OUTSIDE RECORDS SUMMARY | 2025-01-13 07:35 | XMS_ITS | Patient Health Record ---
Author Organization [facility] Address [address] [place] [address] Care Team Providers Care Senior Formulation Scientist Name Role Phone Amauri Barth MD, [facility] Primary Care Provide r Unavailable BlackDebra Unavailable [phone] Reason For Referral No Information Medications Medication SIG (Take, Route, Frequency, Duration) Notes Start Date End Date Status Metoprolol & Diet Manage Prod Active Fish Oil 1000 MG 1 capsule Orally TID for 30 day(s) Active Amlodipine & Diet Manage Prod Active Lasix Active Urea 40 % 1 application to aff ected area Externally for 30 days 03/14/2012 Active AmLactin 12 % 1 application to aff ected area Externally Twice a day for 30days Active Extra-Depth Diabetic Shoes with 3 Pair Custom heat-molded multi-density innersoles . 1pair shoes/3sets inserts . . for 1 year 03/05/2013 Active Lisinopril Active glipiZIDE Active Metformin & Diet Manage Prod Active Gemfibrozil Active Problems Problem Type SNOMED Code ICD Code Onset Dates Problem Status W/U Status Risk Notes Problem Hammer toe (717203043) Hammer toe (735.4) Active confirmed Problem Onychomycosis (031742769) Onychomycosis (110.1) Active confirmed Problem Tinea pedis (6796483) Tinea Pedis (110.4) Active confirmed Problem Disorder of sebaceous gland (5253201) Xerosis (706.8) Active confirmed Problem Neurologic disorder associated with type II diabetes mellitus (191139827) Diabetic - NIDDM/Neuropathy (250.60) Active confirmed Plan Of Treatment Pending Test Test Name Order Date *Liver Function Test (LFT) 03/14/2012 *Liver Function Test (LFT) 10/03/2012 [id number] NAIL, 6 OR MORE 03/14/2012 [id number] NAIL, 6 OR MORE 10/03/2012 [id number] NAIL, 6 OR MORE 03/05/2013 [id number] NAIL, 6 OR MORE 05/28/2013 [id number] SKIN LESIONS, OVER 4 05/28/20 13 [id number] SKIN LESIONS, OVER 4 03/05/20 13 [id number] SKIN LESIONS, OVER 4 10/03/19 13 [id number] SKIN LESIONS, 2 TO 4 03/14/20 12 Insurance Providers Payer Name Payer Address Payer Phone Subscriber Number Group Number Insured Name Patient Relationship to Insured Coverage Start Date Coverage End Date Medicare National [employer] [address] [facility] [id number] [phone] [id number] Leland Rodríguez Self - patient is the insured [employer] [address] [address] [place] [address] [id number] Leland Rodríguez Self - patient is the insured Medical (General) History Medical History History ICD Code Arthritis Cholesterol broken bones type II diabetes Gout high blood pressure neuropathy reflux chicken pox
[2025-01-13 07:46] LABS: MANUAL DIFF FLAG NO
[2025-01-13 08:19] LABS: Basophils Percent Auto 0.6 % (0-2); Eosinophils Absolute Auto 0.2 X10*3/uL (0.0-0.4); Eosinophils Percent Auto 2.3 % (0-4); Hematocrit 40.6 % (42.0-52.0); Hemoglobin 13.6 g/dl (14.0-18.0); Imm Gran Abs Auto 0.02 X10*3/uL (0.00-0.03); Imm Gran Pct Auto 0.3 % (0.0-0.4); Lymphocytes Absolute Auto 3.7 X10*3/uL (1.2-4.9); Lymphocytes Percent Auto 52.4 % (20-40); Mean Corpuscular HGB Conc 33.5 g/dl (31.0-36.0); Mean Corpuscular Hemoglobin 28.6 pg (27.0-33.0); Mean Corpuscular Volume 85.3 fL (80.0-98.0); Mean Platelet Volume 9.8 fL (9.4-12.4); Monocytes Absolute Auto 0.5 X10*3/uL (0.1-1.2); Monocytes Percent Auto 7.3 % (2-11); Neutrophils Absolute Auto 2.6 x10*3/uL (2.0-8.3); Neutrophils Percent Auto 37.1 % (45-73); Platelet Count 212 X10*3/uL (160-400); Red Blood Count 4.76 X10*6/uL (4.60-5.80); Red Cell Distribution Width 13.5 % (11.0-16.0)
[2025-01-13 08:55] LABS: Alanine Aminotransferase 35 U/L (0-40); Albumin Level 4.6 g/dL (3.5-5.0); Alkaline Phosphatase 88 U/L (39-117); Anion Gap 11 (12-20); Aspartate Amino Transferase 31 U/L (5-37); Bilirubin Total 0.7 mg/dL (0.0-1.0); Blood Urea Nitrogen 12 mg/dL (9-16); C Reactive Protein 0.14 mg/dL (< or = 0.50); Calcium 9.1 mg/dL (8.4-10.2); Carbon Dioxide 28 mmol/L (22-29); Chloride 107 mmol/L (96-108); Estimated Glomerular Filt Rate > 60; Glucose Random 96 mg/dL (60-115); Potassium 3.7 mmol/L (3.3-5.1); Sodium 142 mmol/L (135-145)
[2025-01-13 09:02] LABS: Erythrocyte Sedimentation Rate 3 MM/HR (0-15)
== END 2025-01-13 07:33 | disposition home or self-care (01) ==
LOC: HO.LAB 07:32
PROVIDERS: PCP Physician Assistant; Visit Provider Student in an Organized Health Care Education/Training Program
DX: M06.00 Rheumatoid arthritis without rheumatoid factor, unspecified site (principal)
CPT/HCPCS: 36415; 80053; 85025; 85652; 86140

== ENCOUNTER 2025-06-19 08:42 | Outpatient (AMB) | payer OTHER, SELFPAY ==
--- OUTSIDE RECORDS SUMMARY | 2025-06-19 08:58 | XMS_ITS | Patient Health Record ---
[facility] Address [address] [place] [address] Care Team Providers Care Linotype Mechanic Name Role Phone Amauri Barth MD, [facility] Primary Care Provide r Unavailable Debra Tapia Unavailable [phone] Reason For Referral No Information Medications Medication SIG (Take, Route, Frequency, Duration) Notes Start Date End Date Status Metoprolol & Diet Manage Prod Active Fish Oil 1000 MG 1 capsule Orally TID ; Duration: 30 day(s) Active Amlodipine & Diet Manage Prod Active Lasix Active Urea 40 % 1 application to aff ected area Externally; Duration: 30 days 03/14/2012 Active AmLactin 12 % 1 application to aff ected area Externally Twice a day; Duration: 30days Active Extra-Depth Diabetic Shoes with 3 Pair Custom heat-molded multi-density innersoles . 1pair shoes/3sets inserts . .; Duration: 1 year 03/05/2013 Active Lisinopril Active glipiZIDE Active Metformin & Diet Manage Prod Active Gemfibrozil Active Problems Problem Type SNOMED Code ICD Code Onset Dates Problem Status W/U Status Risk Notes Problem Hammer toe (278642129) Hammer toe (735.4) Active confirmed Problem Onychomycosis (518673184) Onychomycosis (110.1) Active confirmed Problem Tinea pedis (1102125) Tinea Pedis (110.4) Active confirmed Problem Disorder of sebaceous gland (2473718) Xerosis (706.8) Active confirmed Problem Neurologic disorder associated with type II diabetes mellitus (407414056) Diabetic - NIDDM/Neuropathy (250.60) Active confirmed Plan Of Treatment Pending Test Test Name Order Date *Liver Function Test (LFT) 03/14/2012 *Liver Function Test (LFT) 10/03/2012 [id number] NAIL, 6 OR MORE 03/14/2012 [id number] NAIL, 6 OR MORE 10/03/2012 [id number] NAIL, 6 OR MORE 03/05/2013 [id number] NAIL, 6 OR MORE 05/28/2013 [id number] SKIN LESIONS, OVER 4 05/28/20 13 [id number] SKIN LESIONS, OVER 4 03/05/20 13 [id number] SKIN LESIONS, OVER 4 10/03/19 13 [id number] SKIN LESIONS, 2 TO 4 03/14/20 12 Insurance Providers Payer Name Payer Address Payer Phone Subscriber Number Group Number Insured Name Patient Relationship to Insured Coverage Start Date Coverage End Date Medicare National Govt Sv[employer] [address] [place] [id number] [phone] [id number] Leland Rodríguez Self - patient is the insured [employer] [address] [address] [place] [address] [id number] Leland Rodríguez Self - patient is the insured Medical (General) History Medical History History ICD Code Arthritis Cholesterol broken bones type II diabetes Gout high blood pressure neuropathy reflux chicken pox
--- NOTE | 2025-06-19 09:08 | MHC.OFFVIS ---
Vital Signs 06/19/25 09:17 Height 6 ft 1 in Weight 245 lb 9.519 oz BMI 32.4 BP 138/80 Blood Pressure Location Lt brachial Position Sitting Pulse 81 Pulse Source Pulse Oximeter Pulse Oximetry (%) 98 Oxygen Delivery Method Room Air Intake Visit Reasons: RA Intake Note: Patient presents for RA follow up. Allergies pneumococcal vaccine Allergy (Intermediate, Verified 06/19/25 09:17) Swelling methotrexate Adverse Reaction (Intermediate, Verified 06/19/25 09:17) Oral ulcers Medication List - Last Reconciled 06/19/25 by Rosio William MD acetaminophen ER (Tylenol Arthritis Pain) 650 mg PO Q12H 30 days adalimumab (Humira(CF) Pen) 40 mg (0.4 mL) subcut Q2W amlodipine 10 mg PO DAILY blood pressure test kit-large As directed furosemide 20 mg PO BID 90 days lisinopril 40 mg PO DAILY pantoprazole 20 mg PO DAILY HPI Comments Details: Patient is a 55-year-old male with hypertension, GERD, generalized anxiety disorder, polyarticular osteoarthritis status post right knee replacement and bilateral hip replacement and seronegative rheumatoid arthritis here today for follow up Interval History: Patient last seen 07/23/[address] Albarran - On Humira 40mg SC every 2 weeks - States that he is doing reasonably well overall. - He gets intermittent achiness and tightness across his PIP is especially when making a fist. - Sometimes at the right ulnar styloid, Did not notice any significant swelling. - Uses Voltaren gel with inconsistent relief. - Complaints attributed to OA rather than RA and no changes made to medications Today - On Humira 40mg SC every 2 weeks - Stable - Still has pain/stiffness when he makes a fist bilaterally - No s/e from Humira Rheumatologic History: -ve RF -ve CCP dx 2017 MTX discontinued due to oral ulcers Humira: November 2020- Present effective Current Rheumatology Medication(s): Humira 40mg SC every 2 weeks PFSH Medical History Back pain COVID-19 vaccine series completed Seronegative rheumatoid arthritis Hx of osteoarthritis Sleep apnea Hx of varicose veins Headache HTN (hypertension) Surgical History History of hemorrhoidectomy (03/15/23) Hx of colonoscopy History of total right knee replacement History of arthroplasty of right knee History of total left hip arthroplasty History of Juan-en-Y gastric bypass (~04/27/16) History of total right hip arthroplasty (~04/03/17) Family History Mother HTN (hypertension) Father Diabetes Paternal Aunt Bone cancer Social History Housing: House Are you a primary urgent care technician to a significant other at home: No Do you presently have visiting nurse or other home services: No Alcohol intake: former Comment: sleeping Patient Tobacco Use Status: Former Tobacco user Years Smoked: 20 e-Cigarette/Vaping Use: Never Used Substance Use Type: Marijuana service: No Current occupational status: employed and disabled Cognitive needs: No Hearing needs: No Vision needs: No Review of Systems Narrative Review of Systems Constitutional: Denies fever, chills, weight loss ENT: Denies vision changes, eye pain or eye redness, dental caries, dry mouth GI: Denies nausea, vomiting, diarrhea, abdominal pain, change in BM Pulm: Denies SOB, GARCIA, hemoptysis, wheezing Cards: Denies chest pain, palpitations Skin: Denies Raynaud's, rash, nail changes, photosensitivity, CLOTH WASHER OPERATOR: Denies headaches, weakness, paresthesias, recurrent falls MSK: as per HPI All other systems reviewed and are unremarkable except noted above Physical Exam Exam Exam: Vital signs reviewed Physical Examination CONSTITUITIONAL Patient alert and cooperative. Well appearing and in no apparent painful distress MSK Hands Right Hand: Able to make a fist. No swelling or tenderness to palpation of the MCPs, PIPs or DIPs. Mild TTP of the 1st MCP Left Hand: Able to make a fist. No swelling or tenderness to palpation of the MCPs, PIPs or DIPs. Wrists Right Wrist: Full ROM to flexion and extension. No swelling or TTP Left Wrist: Full ROM to flexion and extension. No swelling or TTP Elbows Right Elbow: Full ROM. No swelling or TTP. No TTP of the medial epicondyle. No TTP of the lateral epicondyle Left Elbow: Full ROM. No swelling or TTP. No TTP of the medial epicondyle. No TTP of the lateral epicondyle Shoulders Right shoulder: Full ROM. No swelling noted. No TTP of the AC joint. No TTP of the subacromial bursa. No TTP of the posterior shoulder Left shoulder: Full ROM. No swelling noted. No TTP of the AC joint. No TTP of the subacromial bursa. No TTP of the posterior shoulder Knees Right knee: Good ROM. No swelling noted. No TTP of the knee joint line. No TTP of pes anserine bursa. Surgical scar Left knee: Good ROM. No swelling noted. No TTP of the knee joint line. No TTP of pes anserine bursa. Ankles Right ankle: Good ankle dorsiflexion and plantar flexion. No swelling. No TTP of the ankle joint Left ankle: Good ankle dorsiflexion and plantar flexion. No swelling. No TTP of the ankle joint Feet Right foot: Negative squeeze test Left foot: Negative squeeze test Tender points? No tenderness to palpation of the bilateral trapezius, supraspinatus, anterior costochondral junctions, bilateral suboccipital muscle insertions SKIN No rashes Vital Signs: Last Vital Signs Pulse 81 06/19/25 09:17 BP 138/80 06/19/25 09:17 Pulse Ox 98 06/19/25 09:17 Oxygen Delivery Method Room Air 06/19/25 09:17 BMI result Body Mass Index 32.4 Results Reviewed Results Reviewed: Laboratory Tests 01/13/25 07:44 WBC 7.0 RBC 4.76 Hgb 13.6 L Hct 40.6 L Plt Count 212 ESR 3 Sodium 142 Potassium 3.7 Chloride 107 Carbon Dioxide 28 BUN 12 Creatinine 0.68 AST 31 ALT 35 C-Reactive Protein 0.14 Laboratory Tests 07/21/24 11:00 Hepatitis A IgM Ab Nonreactive Hep Bs Antigen Negative Hep Bs Antibody NONREACTIVE Hep B Core Total Ab Nonreactive Hepatitis C Ab (EIA) Nonreactive TB Test (T-Spot) Com Negative Assessment & Plan Assessment & Plan (1) Seronegative rheumatoid arthritis: Comment: -ve RF -ve CCP dx 2017 MTX discontinued due to oral ulcers Humira: November 2020- Present effective Code(s): M06.00 - Rheumatoid arthritis without rheumatoid factor, unspecified site Category: Medical Plan: #Seronegative RA Patient is a 55 year old male with seronegative RA here today for follow up Doing well on Humira but noricing that the effect wanes when he gets close to his shot being due Based on that we will increase the frequency Plan - Humira 40mg SC every 10 days - Labs today: CBC, CMP, ESR, CRP, Hepatitis panel and T spot - RTC 6 months - Labs before visit: CBC, CMP, ESR, CRP (2) Polyarticular osteoarthritis: Code(s): M15.9 - Polyosteoarthritis, unspecified Plan: #Polyarticular OA Overall stable Requesting podiatry referral (3) Encounter for monitoring of adalimumab therapy: Code(s): Z51.81 - Encounter for therapeutic drug level monitoring; Z79.620 - salvage determiner (current) use of immunosuppressive biologic Plan: #Long-term Use of TNF Inhibitors: Humira Discussed with the patient the benefits and risks of TNF inhibitors for the management of the rheumatic condition Benefits include reduce pain, maintenance of remission and reduction of flares as well as progression of the disease Risks include injection sites/infusion reactions, serious infections (such as bacterial infections, opportunistic infections), malignancy, delaminating syndromes, autoimmune phenomena, CHF exacerbations, palmar plantar psoriasis and cytopenias Recommended rotating injection sites, and holding medication during and for up to 1 week after resolution of a febrile illness or open skin wound Plan This is my first visit with the patient. I spent 30 minutes reviewing the record and labs, taking a history, examining the patient, discussing the treatment plan, ordering diagnostic work up and documenting in the medical record Orders: Orders Erythrocyte Sedimentation Rate 6 Months Z79.899 - Other fci (current) drug therapy Comprehensive Met. 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 Panel 6 Months Z79.899 - Other local company intermodal truck driver (current) drug therapy Complete Blood Count Auto Diff Today Z79.899 - Other [facility]ci (current) drug therapy Hepatitis B,C Profile Today Z79.899 - Other [facility]ci (current) drug therapy Referrals Podiatry Referral M79.671 - Pain in right foot, M79.672 - Pain in left foot Medications: Changed From adalimumab (Humira(CF) Pen) 40 mg (0.4 mL) subcut Q2W 2 ea 5RF M06.00 - Rheumatoid arthritis without rheumatoid factor, unspecified site To adalimumab (Humira(CF) Pen) 40 mg (0.4 mL) subcut .every 10 days 3 ea 5RF M06.00 - Rheumatoid arthritis without rheumatoid factor, unspecified site Coding Level of Care Code Est Pt Level 4 (32522) Complex EM visit Add On G2211 Diagnoses Seronegative rheumatoid arthritis M06.00 Polyarticular osteoarthritis M15.9 Encounter for monitoring of adalimumab therapy Z51.81; Z79.620
[2025-06-19 09:17] VITALS: BP 138/80; PULSE 81; O2SAT 98; BMI 32.4
== END 2025-06-19 10:00 | disposition home or self-care (01) ==
LOC: HO.RHES 08:43
PROVIDERS: PCP Physician Assistant; Visit Provider Student in an Organized Health Care Education/Training Program
DX: M06.09 Rheumatoid arthritis without rheumatoid factor, multiple sites (principal); M15.9 Polyosteoarthritis, unspecified; Z51.81 Encounter for therapeutic drug level monitoring; Z79.620 Long term (current) use of immunosuppressive biologic
CPT/HCPCS: 99214; G2211

== ENCOUNTER 2025-06-19 08:42 | Outpatient (REF) | payer OTHER, SELFPAY ==
[2025-06-19 13:29] LABS: MANUAL DIFF FLAG NO
[2025-06-19 13:39] LABS: Hematocrit 40.6 % (42.0-52.0); Hemoglobin 13.3 g/dl (14.0-18.0); Imm Gran Abs Auto 0.02 X10*3/uL (0.00-0.03); Imm Gran Pct Auto 0.3 % (0.0-0.4); Lymphocytes Absolute Auto 3.5 X10*3/uL (1.2-4.9); Mean Corpuscular HGB Conc 32.8 g/dl (31.0-36.0); Mean Corpuscular Hemoglobin 28.4 pg (27.0-33.0); Mean Corpuscular Volume 86.6 fL (80.0-98.0); NRBC Abs Auto 0.000 X10*3/uL (0.0-0.012); NRBC Pct Auto 0.0 /100WBC (0.0-0.2); Platelet Count 268 X10*3/uL (160-400); Red Blood Count 4.69 X10*6/uL (4.60-5.80); White Blood Count 7.1 X10*3/uL (4.8-10.8)
[2025-06-19 14:11] LABS: Alanine Aminotransferase 38 U/L (0-40); Albumin Level 4.7 g/dL (3.5-5.0); Alkaline Phosphatase 81 U/L (39-117); Anion Gap 10 (12-20); Aspartate Amino Transferase 31 U/L (5-37); Blood Urea Nitrogen 14 mg/dL (9-16); Calcium 9.2 mg/dL (8.4-10.2); Carbon Dioxide 30 mmol/L (22-29); Chloride 106 mmol/L (96-108); Estimated Glomerular Filt Rate > 60; Potassium 4.4 mmol/L (3.3-5.1); Sodium 142 mmol/L (135-145); Total Protein 7.2 g/dL (6.5-8.0)
[2025-06-19 14:48] LABS: HBS Num1 0.91 mIU/mL (0-7.99); HBc Num1 0.08 S/CO (0.00-0.79); HBsAGNum1 0.33 S/CO (0.00-0.99); Hepatitis B Surface Antigen Negative (Negative); ~HepC Num1 0.06 S/CO (0.00-0.79); ~Hepatitis B Surface Antibody NONREACTIVE (Nonreactive); ~Hepatitis C Antibody Nonreactive (Nonreactive)
[2025-06-22 08:49] LABS: TS Negative Control Passed; TS Panel A 0; TS Panel B 0; TS Positive Control Passed; TSpotTB Negative (Negative)
== END 2025-06-19 08:43 | disposition home or self-care (01) ==
LOC: HO.HKASLDS 08:42
PROVIDERS: PCP Physician Assistant; Visit Provider Student in an Organized Health Care Education/Training Program
DX: M06.00 Rheumatoid arthritis without rheumatoid factor, unspecified site (principal); M15.9 Polyosteoarthritis, unspecified; M79.671 Pain in right foot; M79.672 Pain in left foot; Z51.81 Encounter for therapeutic drug level monitoring; Z79.620 Long term (current) use of immunosuppressive biologic; Z79.899 Other long term (current) drug therapy; Z01.84 Encounter for antibody response examination
CPT/HCPCS: 36415; 80053; 85025; 85652; 86140; 86481; 86704; 86706; 86803; 87340; 99212

== ENCOUNTER 2025-07-10 07:47 | Outpatient (REF) | payer OTHER, SELFPAY | END 2025-07-10 07:48 | disposition home or self-care (01) | LOC: HO.LAB 07:47 | PROVIDERS: PCP Physician Assistant; Visit Provider Student in an Organized Health Care Education/Training Program | DX: B35.1 Tinea unguium (principal); M21.41 Flat foot [pes planus] (acquired), right foot; M21.42 Flat foot [pes planus] (acquired), left foot; M20.41 Other hammer toe(s) (acquired), right foot; M20.42 Other hammer toe(s) (acquired), left foot; M06.9 Rheumatoid arthritis, unspecified; L85.3 Xerosis cutis | CPT/HCPCS: 87101; 87220; 88304; 88312; 99202 ==

== ENCOUNTER 2025-07-10 07:47 | Outpatient (AMB) | payer OTHER, SELFPAY ==
[2025-07-10 08:11] VITALS: BMI 32.3
--- NOTE | 2025-07-10 08:11 | A.OFFVIS_ITS ---
Vital Signs 07/10/25 08:11 Height 6 ft 1 in Weight 245 lb BMI 32.3 Intake Visit Reasons: Pain in right foot/Left foot Intake Note: Leland is a 55 year old male who presents today as a new patient for an evaluation of his bilateral foot pain. Patient reports he has had the pain for about 2 years and he is currently being treated for his rheumatoid arthritis and osteoarthritis at rheumatology. He states he has concerns in regards to the appearance of his toe nails and he had not tried any treatment for the nails recently. No recent imaging has been performed Allergies pneumococcal vaccine Allergy (Intermediate, Verified 06/19/25 09:17) Swelling methotrexate Adverse Reaction (Intermediate, Verified 06/19/25 09:17) Oral ulcers HPI HPI Pain in right foot/Left foot: Details: The patient is a 55-year-old male past medical history of rheumatoid arthritis, hypertension, GERD, presenting for evaluation of his toenails and bilateral feet pain. He has a history of rheumatoid arthritis for over five years and is currently managed with Humira, which effectively controls his joint pain. His significant past medical history includes morbid obesity, with a former weight of 599 pounds, and type 2 diabetes. He underwent bariatric surgery, which led to a weight loss of 354 pounds. He has also had a right knee replacement. The patient reports that his toenail changes have been present for many years, preceding his use of Humira, and he relates them to his prior history of diabetes. He reports recent bruising on his toes from increased walking last month. He has a history of venous ulcers, prior to his bariatric surgery. He has intermittent right ankle pain and an orthopedic surgeon had previously recommended ankle fusion 3-4 years ago, which the patient declined at the time. Surgical History: - Bariatric surgery (stomach surgery) - Knee replacement - Hip replacement Medications: - Humira for rheumatoid arthritis Social History: - Employment: Stands on his feet for at least six hours a day. - Weight Management: History of morbid obesity with a peak weight of 599 pounds; he lost 354 pounds after undergoing bariatric surgery. - Family Status: Reports his is very supportive of his health. Family History: - Mother: Has similar toe shape. - Children: Reports his three oldest sons are dealing with obesity and foot problems similar to what he experienced. - One son has severe edema in his legs. [facility] Medical History Back pain COVID-19 vaccine series completed Seronegative rheumatoid arthritis Hx of osteoarthritis Sleep apnea Hx of varicose veins Headache HTN (hypertension) Surgical History History of hemorrhoidectomy (03/15/23) Hx of colonoscopy History of total right knee replacement History of arthroplasty of right knee History of total left hip arthroplasty History of Juan-en-Y gastric bypass (~04/27/16) History of total right hip arthroplasty (~04/03/17) Family History Mother HTN (hypertension) Father Diabetes Paternal Aunt Bone cancer Social History Housing: House Are you a primary post acute care registered nurse to a significant other at home: No Do you presently have visiting nurse or other home services: No Alcohol intake: former Comment: sleeping Patient Tobacco Use Status: Former Tobacco user Years Smoked: 20 e-Cigarette/Vaping Use: Never Used Substance Use Type: Marijuana service: No Current occupational status: employed and disabled Cognitive needs: No Hearing needs: No Vision needs: No Review of Systems Const All systems reviewed & are unremarkable except as noted in HPI and below Physical Exam Vital Signs: BMI result Body Mass Index 32.3 Extrem Other: *Bilateral Lower Extremity Focused Exam Vascular: DP/PT 2/4, CFT<3s to all digits, TG warm to cool, mild right ankle edema, pedal hair absent Derm: Diffuse xerosis bilateral feet, Thickened elongated dystrophic discolored toenails x 10 with subungual debris. Hyperkeratotic lesions medial hallux bilateral feet. Neuro: Protective sensation grossly intact to bilateral lower extremity MSK: Moderate tracking hallux valgus deformity bilateral feet, extension deformity of 2nd Metatarsal-phalangeal joint bilaterally with flexion deformity at the PIPJ and DIPJ. Right ankle range of motion 0 degrees dorsiflexion, 20 degrees plantar flexion, crepitus on end range of motion. Moderate to severe pes planus foot type bilaterally with medial talar bulge. Office Procedures AMB Debridement /Avulsion Details: Procedure: Callus debridement Location: 2, bilateral feet Anesthesia: N/A Description: The affected area was cleansed with an antiseptic solution. Using a sterile #15 blade, the hyperkeratotic tissue was radially debrided from the foot. All callused tissue was removed down to normal skin without causing bleeding or discomfort. The area was inspected for underlying ulceration or infection. Patient tolerated the procedure well. No complications noted. Tolerance: Patient tolerated procedure well, no immediate complications. Procedure: Nail debridement Location: 10 nails, bilateral feet Anesthesia: N/A Description: The affected toenails were cleansed with an antiseptic solution. Using sterile nail nippers and a rotary laurita, dystrophic and mycotic nail material was carefully debrided and reduced in thickness. Care was taken to avoid trauma to the surrounding skin and nail bed. All debris was removed as tolerated. The area was inspected for signs of infection or ulceration. Patient tolerated the procedure well without complications. Tolerance: Patient tolerated procedure well, no immediate complications. Class B findings as per physical exam findings above. The patient has a diagnosis of diabetes mellitus and presents with elongated, thickened toenails. Due to underlying rheumatoid arthritis, history of ulcerations, and diabetes with vascular disease findings, the patient is at increased risk for complications such as ulceration, infection, and difficulty with self-care. Debridement of elongated toenails is medically necessary to prevent development of pressure-related lesions, reduce risk of secondary infection, and maintain foot health in high-risk comorbidities. 49926-Lsvtrnwotsf of Nail 6+ 31281-Mswvktbobgr of Callus (2-4) Procedure code (CPT) selection complete Assessment & Plan Assessment & Plan (1) Tinea unguium: Code(s): B35.1 - Tinea unguium Category: Medical Plan: * Debrided nails using a rotary bur. * Hallux nail biopsy specimen sent. * Rx ciclopirox * Follow up in 1 month (2) Pes planus of both feet: Code(s): M21.41 - Flat foot [pes planus] (acquired), right foot; M21.42 - Flat foot [pes planus] (acquired), left foot Category: Medical Plan: * The patient has severe pes planus deformity at this time with likely hindfoot/ankle valgus component. He is referred for x-rays to properly evaluate extent of deformity. * At the minimum, he will be recommended orthotics to correct the pes planus deformity, may require custom orthotics. (3) Acquired hammertoes of both feet: Code(s): M20.41 - Other hammer toe(s) (acquired), right foot; M20.42 - Other hammer toe(s) (acquired), left foot Category: Medical Plan: * Referred for bilateral foot x-rays (4) Rheumatoid arthritis of ankle: Code(s): M06.9 - Rheumatoid arthritis, unspecified Category: Medical Plan: * Referred for bilateral ankle feet and calcaneal x-rays * We will discuss steroid injections in the future (5) Xerosis cutis: Code(s): L85.3 - Xerosis cutis Category: Medical Plan: * Rx Amlactin Orders: Orders XR Foot Bandar 3V Today M06.9 - Rheumatoid arthritis, unspecified XR Calcaneus Bandar min 2V Today M06.9 - Rheumatoid arthritis, unspecified Fungus Cult Hair/Skin/Nail Today B35.1 - Tinea unguium Surgical Today B35.1 - Tinea unguium XR Ankle Bandar min 3V Today M06.9 - Rheumatoid arthritis, unspecified Medications: New ciclopirox 8% Apply to fungal toenails daily. Remove build-up at the end of the week. 1 appl topical BEDTIME 6.6 mL 3RF 4 months ammonium lactate 12% (AmLactin) apply to bottom of both feet 1 appl topical DAILY 225 grams 3RF xerosis Coding Level of Care Code New Pt Level 4 (87136) Diagnoses Tinea unguium B35.1 Pes planus of both feet M21.41; M21.42 Acquired hammertoes of both feet M20.41; M20.42 Rheumatoid arthritis of ankle M06.9 Xerosis cutis L85.3 Time Spent (min) 35
== END 2025-07-10 08:37 | disposition home or self-care (01) ==
LOC: HO.HPODS 07:48
PROVIDERS: PCP Physician Assistant; Visit Provider Student in an Organized Health Care Education/Training Program
DX: B35.1 Tinea unguium (principal); M21.41 Flat foot [pes planus] (acquired), right foot; M21.42 Flat foot [pes planus] (acquired), left foot; M20.41 Other hammer toe(s) (acquired), right foot; M20.42 Other hammer toe(s) (acquired), left foot; M06.9 Rheumatoid arthritis, unspecified; L85.3 Xerosis cutis
CPT/HCPCS: 99204

== ENCOUNTER 2025-07-10 11:32 | Outpatient (REF) | payer OTHER, SELFPAY | END 2025-07-10 11:33 | disposition home or self-care (01) | LOC: HO.LNP 11:32 | PROVIDERS: Visit Provider Student in an Organized Health Care Education/Training Program | DX: M79.674 Pain in right toe(s) (principal); B35.1 Tinea unguium | CPT/HCPCS: 88304; 88312 ==

== ENCOUNTER 2025-07-29 08:24 | Outpatient (AMB) | payer OTHER, SELFPAY ==
--- OUTSIDE RECORDS SUMMARY | 2025-07-29 08:27 | XMS_ITS | Patient Health Record ---
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 Primary Care Provide r Unavailable Debra Tapia Unavailable [phone] Reason For Referral No Information Medications Medication [...] W/U Status Risk Notes Problem Hammer toe (081130214) Hammer toe (735.4) Active confirmed Problem Onychomycosis (634893032) Onychomycosis (110.1) Active confirmed Problem Tinea pedis (7903963) Tinea Pedis (110.4) Active confirmed Problem Disorder of sebaceous gland (3033265) Xerosis (706.8) Active confirmed Problem Neurologic disorder associated with type II diabetes mellitus (053511083) Diabetic - NIDDM/Neuropathy (250.60) Active confirmed Plan Of Treatment Pending Test Test Name Order Date *Liver Function Test (LFT) 03/14/2012 *Liver Function Test (LFT) 10/03/2012 [id number] NAIL, 6 OR MORE 03/14/2012 [id number] NAIL, 6 OR MORE 10/03/2012 [id number] NAIL, 6 OR MORE 03/05/2013 [id number] NAIL, 6 OR MORE 05/28/2013 [id number] SKIN LESIONS, OVER 4 05/28/20 13 53415-[id number] SKIN LESIONS, OVER 4 03/05/20 13 53729-[id number] SKIN LESIONS, OVER 4 10/03/19 13 44819-POCK SKIN LESIONS, 2 TO 4 03/14/20 12 Insurance Providers Payer Name Payer Address Payer Phone Subscriber Number Group Number Insured Name Patient Relationship to Insured Coverage Start Date Coverage End Date Medicare [employer] [address] [place] [id number] Leland Rodríguez Self - patient is the insured [employer] [address] [address] [place] [address] [id number] Leland Rodríguez Self - patient is the insured Medical (General) History Medical History History ICD Code Arthritis Cholesterol broken bones type II diabetes Gout high blood pressure neuropathy reflux chicken pox
--- NOTE | 2025-07-29 08:33 | MHC.PC.OV ---
Vital Signs 07/29/25 08:35 Height 6 ft 1 in Weight 244 lb 6 oz BMI 32.2 BP 110/60 Blood Pressure Location Lt brachial Position Sitting Pulse 78 Pulse Source Pulse Oximeter Temp 97.1 F Temp Source Temporal Artery Scan Pulse Oximetry (%) 96 Oxygen Delivery Method Room Air Intake Visit Reasons: Annual Exam, resched Intake Note: Patient is here today for a physical. Psychologist Chief Required: No Manager Strategic Marketing: Not Required per policy Accompanied by: Self / Same As Patient Allergies pneumococcal vaccine Allergy (Intermediate, Verified 07/29/25 08:56) Swelling methotrexate Adverse Reaction (Intermediate, Verified 07/29/25 08:56) Oral ulcers Medication List - Last Reconciled 07/29/25 by Avelino Penny PA-C acetaminophen ER (Tylenol Arthritis Pain) 650 mg PO Q12H 30 days adalimumab (Humira(CF) Pen) 40 mg (0.4 mL) subcut .every 10 days amlodipine 10 mg PO DAILY ammonium lactate 12% (AmLactin) 1 appl topical DAILY blood pressure test kit-large As directed ciclopirox 8% 1 appl topical BEDTIME 4 months furosemide 20 mg PO BID 90 days lisinopril 40 mg PO DAILY pantoprazole 20 mg PO DAILY Tobacco use date assessed: 07/29/25 Dental Screening Dental Screen Date: 07/29/25 Did you have a dental visit in the last 12 months?: No Did you have a dental problem in the last 6 months where you did not have access to dental care?: No Was dental information given to patient?: Patient has dentist HPI Annual Exam, resched HPI Details Patient is a 55 year old male here today for an annual physical. Patient has past medical history of significant for hypertension, severe RF neg rheumatoid arthritis, vitamin-D deficiency, hypertension, vitamin B12 deficiency. --> patient now working a part-time job at a local [email or web address] Concern--> anxiety/stress: Patient reports he has been having increased anxiety as of late, has been more irritable due to personal issues. He reports his 39-year-old son has kidney and liver failure due to alcoholism. He is interested in trying an as needed medication for anxiety ? . ? Hypertension: Has been checking his BP at home, has been compliant with BP medications. ? Denies any Headaches, CP, SOB. ? .. ? Arthritis: Followed by Rheum-- On humaria now and doing well. Still having hand pain though reports his global eyes pain in his larger joints are much improved since starting Humira.. Of note was unable to tolerate methotrexate due to oral ulcers. Of note he does use medicinal marijuana in conjunction for pain relief which he reports helps tremendously. . class 1 Obesity; patient is status post bariatric surgery, has noted gradual weight loss over the past several weeks due to being more active now has a part-time job.. Today's BMI 32 VAccine : UTD with COVID Vac , and PCV. NEEDs Tdap ..Colonoscopy:? Colonoscopy done in March of 2021 polyp found tubular repeat 3-5 years. [facility] Medical History Back pain COVID-19 vaccine series completed Seronegative rheumatoid arthritis Hx of osteoarthritis Sleep apnea Hx of varicose veins Headache HTN (hypertension) Surgical History History of hemorrhoidectomy (03/15/23) Hx of colonoscopy History of total right knee replacement History of arthroplasty of right knee History of total left hip arthroplasty History of Juan-en-Y gastric bypass (~04/27/16) History of total right hip arthroplasty (~04/03/17) Family History Mother HTN (hypertension) Father Diabetes Paternal Aunt Bone cancer Social History (Updated 07/29/25 @ 09:02 by Avelino Penny PA-C) Housing: House Are you a primary home care consultant to a significant other at home: No Do you presently have visiting nurse or other home services: No Alcohol intake: former Year quit: 2022 Comment: sleeping Patient Tobacco Use Status: Former Tobacco user Years Smoked: 20 e-Cigarette/Vaping Use: Never Used Second Hand Smoke Exposure: Yes Substance Use Type: Marijuana service: No Current occupational status: employed and disabled Cognitive needs: No Hearing needs: No Vision needs: No Questionnaire PHQ-9 Over the last 2 weeks, how often have you been bothered by any of the following problems? 1. Little interest or pleasure in doing things: not at all 2. Feeling down, depressed, or hopeless: not at all 3. Trouble falling or staying asleep, or sleeping too much: not at all 4. Feeling tired or having little energy: not at all 5. Poor appetite or overeating: not at all 6. Feeling bad about yourself - or that you are a failure or have let yourself or your family down: not at all 7. Trouble concentrating on things, such as reading the newspaper or watching television: not at all 8. Moving or speaking so slowly that other people could have noticed. Or the opposite - being so fidgety or restless that you have been moving around a lot more than usual: not at all 9. Thoughts that you would be better off or of hurting yourself in some way: not at all Total score: 0 Depression Screening Interpretation: Negative Depression Screening Done: Yes Source: Developed by Drs. Pascual Alegria, Brie Villalta, Orion Rea and colleagues, with an educational sara from [employer]. Thrive Questionnaire Date Thrive assessed: 07/29/25 I am a: Patient What is your living situation today?: I choose not to answer this question Within the past 12 months, did the food you bought not last and you didn't have the money to get more?: I choose not to answer this question Within the past 12 months, did you worry whether your food would run out before you got money to buy more?: I choose not to answer this question Do you have trouble paying for medicines?: I choose not to answer this question Do you have trouble getting transportation to medical appointments?: I choose not to answer this question Do you have trouble paying your heating and electricity bill?: I choose not to answer this question Do you have trouble taking care of your child, family member or friend?: I choose not to answer this question Do you have trouble with day-to-day activities such as bathing, preparing meals, shopping, managing finances, etc.?: I choose not to answer this question Are you currently unemployed and looking for a job?: I choose not to answer this question Are you interested in more education?: I choose not to answer this question Please select the resources that you would like help with: None Currently or been in a relationship where the following occur: No concerns reported THRIVE Score: 0 AUDIT C Alcohol Use Questionnaire (AUDIT-C) 1. How often do you have a drink containing alcohol?: Never Total Score: 0 LUCI-7 AMB Questionnaire LUCI-7 Date LUCI - 7 assessed: 07/29/25 Feeling nervous, anxious, or on edge: 0 = Not at all Not being able to stop or control worryin = Not at all Worrying too much about different things: 0 = Not at all Trouble relaxin = Not at all Being so restless that it is hard to sit still: 0 = Not at all Becoming easily annoyed or irritable: 0 = Not at all Feeling afraid as if something awful might happen: 0 = Not at all Total LUCI-7 score (0-4 normal; 5-9 mild; 10-14 moderate; 15-21 severe): 0 Source: Developed by Drs. Pascual Alegria, Brie Villalta, Orion Rea and colleagues, with an educational sara from [employer]. Review of Systems Const Denies body aches, Denies chills, Denies excessive sweating, Denies fatigue, Denies fever(s) and Denies headache(s) Eyes Denies blurry vision ENT Denies dysphagia, Denies vertigo, Denies dizziness, Denies headache(s), Denies hearing loss and Denies tinnitus Card Denies chest pain, Denies chest pain with activity, Denies syncope, Denies irregular heart rhythm and Denies dyspnea Resp Denies chest congestion, Denies cough, Denies hemoptysis, Denies dyspnea and Denies wheezing GI Denies abdominal pain, Denies melena, Denies hematochezia, Denies coffee ground emesis, Denies dysphagia, Denies diarrhea, Denies nausea and Denies vomiting Denies difficulty urinating, Denies dysuria, Denies urinary frequency, Denies urinary hesitancy and Denies urinary urgency Musc Denies arthralgias, Denies limited range of motion, Denies muscle cramps and Denies muscle weakness Skin/Breast Denies rash and Denies skin ulcer Neuro Denies Abnormal speech present, Denies confusion, Denies vertigo, Denies dizziness, Denies syncope, Denies headache(s), Denies memory loss and Denies seizure-like activity Psych Denies anxiety, Denies confusion, Denies depression, Denies memory loss, Denies panic attacks and Denies paranoia Endo Denies excessive sweating, Denies fatigue, Denies flushing, Denies polydipsia and Denies polyuria Aller/Immun Denies wheezing Physical exam (Primary Care) Vital Signs: Last Vital Signs Temp 97.1 F 07/29/25 08:35 Pulse 78 07/29/25 08:35 BP 110/60 07/29/25 08:35 Pulse Ox 96 07/29/25 08:35 Oxygen Delivery Method Room Air 07/29/25 08:35 BMI result Body Mass Index 32.2 Tobacco/Smoking Status: Tobacco use Status Tobacco use date assessed 07/29/25 07/29/25 08:36 Patient Tobacco Use Status Former Tobacco user 07/29/25 09:02 e-Cigarette/Vaping Use Never Used 07/29/25 09:02 PHQ-9: PHQ-9 Score PHQ-9: Total score 0 07/29/25 09:17 Depression Screening Interpretation: Negative Thrive Assessment: Date of Thrive Assessment Date Thrive assessed 07/29/25 07/29/25 08:36 Currently or been in a relationship where the following occur: No concerns reported Const General: cooperative, comfortable, no acute distress, alert and awake; No confusion Orientation/consciousness: oriented to person, oriented to place, patient oriented x3 and No confusion HENMT Head: Yes normocephalic Ears: external ears normal and TM's normal bilaterally Face and sinus: No sinus tenderness Mouth: Normal oral and palatal mucosa present and tongue normal Teeth and gingiva: dentition normal and gingiva normal Throat: Yes posterior oropharynx normal, Yes tonsils normal and Yes uvula midline Eyes Conjunctivae: conjunctivae normal Sclerae: sclerae normal Pupils: Equal, round and reactive pupils present EOM: EOMs intact bilaterally Direct Ophthalmoscopy: No no photophobia Neck Neck: Yes no lymphadenopathy, No tender and Yes no JVD Thyroid: Thyroid normal Carotids: no bruits Chest Chest palpation & inspection: no tenderness Resp Effort & Inspection: normal respiratory effort, no audible wheezes, not labored and no stridor Auscultation: no crackles, no rales, no rhonchi and no wheezes Cardio Jugular venous distension: no JVD Rate: regular rate, not bradycardic and not tachycardic Rhythm: regular rhythm Bruits: no carotid bruits Peripheral pulses: Peripheral pulses 2+ throughout GI Inspection: Yes normal to inspection, No abdominal wall ecchymosis and No visible herniation Palpation (GI): Soft to palpation, nontender, no guarding, not rigid and No hepatosplenomegaly present Auscultation: normoactive bowel sounds General: Yes no CVA tenderness Back/Spine/Pelvis Back: no CVA tenderness and No back tenderness Cervical Spine: cervical ROM normal Thoracic/Lumbar Spine: thoracic and lumbar spine normal to inspection, straight leg raise negative bilaterally, No thoraco-lumbar ROM limited and No lumbar spinal tenderness Skin Lesions: no lesions Rashes: no rashes Wounds: no wounds Neuro General: oriented to person, oriented to place, patient oriented x3, CN's II-XI intact bilaterally and No confusion Cranial nerves: Yes Equal, round and reactive pupils present and Yes Normal accommodation reflex present Cognition (Neuro): normal cognition Speech: No Abnormal speech present Gait exam (Neuro): Normal gait present Motor exam (neuro): 5/5 motor strength present throughout Extrem Right upper extremity: full ROM; no cyanosis Left upper extremity: full ROM; no cyanosis Right lower extremity: no edema Left lower extremity: no edema Psych Appearance: grossly normal Mental Status: mental status grossly normal Affect: normal affect Attitude: cooperative Thought process: Normal thought process present Immunizations Boostrix Tdap 2.5 Lf unit-8 mcg-5 Lf/0.5 mL intramuscular syringe Performing Provider: Avelino Penny PA-C [facility] Administered by: Antonia Roman CMA on 07/29/25 09:17 Dose Route Admin Location Dispensed Lot Number Expiration Date [facility] Ent[employer] 0.5 mL IM Left Deltoid 0.5 mL [id number] 01/16/28 [id number] [employer] Total Dispensed Waste 0.5 mL 0 % VIS Given Date VIS Provided VIS Publication Date 07/29/25 Single Vaccine 21 Eligibility Eligibility Date Funding Source Not [facility] Eligible 07/29/25 Private Coding Diagnoses Annual physical exam Z00.00 Borderline high cholesterol E78.9 LUCI (generalized anxiety disorder) F41.1 Tubular adenoma D36.9 Assessment & Plan Assessment & Plan (1) Annual physical exam: Code(s): Z00.00 - Encounter for general adult medical examination without abnormal findings Category: Medical (2) Borderline high cholesterol: Code(s): E78.9 - Disorder of lipoprotein metabolism, unspecified Category: Medical Plan: Noted borderline high total cholesterol, noted some gain since last office visit. Will recheck lipid panel upon next visit fasting. He will work on lifestyle modifications on reducing his cholesterol (3) LUCI (generalized anxiety disorder): Code(s): F41.1 - Generalized anxiety disorder Category: Medical Plan: Has been speaking with a friend about anxiety which has been helping though still feels he needs more help. Will set him up with license mental health therapist. Not interested in medication for anxiety at this time. (4) Tubular adenoma: Comment: Adenomas, repeat colonoscopy 3 year First-degree relatives begin screening at age 40 Code(s): D36.9 - Benign neoplasm, unspecified site Category: Medical Orders: Orders Lipid Panel Today E78.9 - Disorder of lipoprotein metabolism, unspecified Microalbumin, Random (w Creat) Today I10 - Essential (primary) hypertension Comprehensive [place]. Panel Fast Today I10 - Essential (primary) hypertension Complete Blood Count no Diff Today I10 - Essential (primary) hypertension Prostate Specific Antigen Scr Today I10 - Essential (primary) hypertension, Z12.5 - Encounter for screening for malignant neoplasm of prostate TDaP Immunization Today Z23 - Encounter for immunization Referrals Gastroenterology Referral D36.9 - Benign neoplasm, unspecified site Medications: New hydroxyzine HCl 10 mg PO BID PRN 14 tabs 0RF anxiety 7 days F41.1 - Generalized anxiety disorder, F41.9 - Anxiety disorder, unspecified
[2025-07-29 08:35] VITALS: BP 110/60; PULSE 78; TEMP 36.2; O2SAT 96; BMI 32.2
== END 2025-07-29 09:24 | disposition home or self-care (01) ==
LOC: HO.HMCH 08:25
PROVIDERS: PCP Physician Assistant; Visit Provider Physician Assistant
DX: Z23 Encounter for immunization (principal)

== ENCOUNTER → 2025-07-29 08:24 | Outpatient (BNVA) | payer OTHER, SELFPAY | PROVIDERS: PCP Physician Assistant; Visit Provider Physician Assistant | DX: Z00.00 Encounter for general adult medical examination without abnormal findings (principal); E78.9 Disorder of lipoprotein metabolism, unspecified; F41.1 Generalized anxiety disorder; D36.9 Benign neoplasm, unspecified site; E66.811 Obesity, class 1; M06.00 Rheumatoid arthritis without rheumatoid factor, unspecified site; Z68.32 Body mass index [BMI] 32.0-32.9, adult | CPT/HCPCS: 90471; 90715; 96127; 99396 ==